=== PATIENT | female | born 1990 ===

== ENCOUNTER 2016-10-24 17:17 | Observation (INO) | payer SELFPAY ==
[2016-10-24 17:37] VITALS: RESP 18
[2016-10-24] MEDS ORDERED: Iohexol 240 (50 ml) PO STA (18:00)
[2016-10-24] MEDS ORDERED: Sodium Chloride 0.9% 1,000 ML IV STA (18:01)
--- NOTE | 2016-10-24 18:13 | ED PDOC ---
HPI:Nausea, Vomiting, Diarrhea Time Seen by Provider: 10/24/16 17:54 Chief Complaint (Nursing): GI Problem Chief Complaint (Provider): Nausea/Vomiting History Per: Patient History/Exam Limitations: no limitations Onset/Duration Of Symptoms: Days (1 day) Current Symptoms Are (Timing): Still Present Have you had recent travel within the past 21 days to any of the following countries: [place], [place], [place] or [place]?: No Severity: Moderate Associated Symptoms: Fever (subjective), Nausea, Vomiting, Other (abdominal pain ). denies: Constipation, Urinary Symptoms Additional Complaint(s): Farnaz Samuel is a 26 year old female, with no pertinent past medical history, who presents to the emergency department for the evaluation of nausea and vomiting, that the patient has been experiencing for 1 day. Associated subjective fever and abdominal pain are currently present. Denies genitourinary symptoms or constipation. PMD: none specified Abnormal Vaginal Bleeding: No Past Medical History Reviewed: Historical Data, Nursing Documentation, Vital Signs Vital Signs: Last Vital Signs Temp 97 F L 10/24/16 17:30 Pulse 74 10/24/16 17:30 Resp 18 10/24/16 17:30 BP 141/84 10/24/16 17:30 Pulse Ox 100 10/24/16 17:30 - Medical History PMH: No Chronic Diseases - Surgical History Surgical History: Appendectomy, Hernia Repair (inguinal) - Family History Family History: States: No Known Family Hx - Social History Current smoker - smoking cessation education provided: No Ex-Smoker (has not smoked in the last 12 months): No Alcohol: Occasional - Home Medications Home Medications: Ambulatory Orders Medication Instructions Recorded Amoxicillin [Amoxicillin] 875 mg PO DAILY 10/25/16 - Allergies Allergies/Adverse Reactions: Allergies Allergy/AdvReac Type Severity Reaction Status Date / Time No Known Allergies Allergy Verified 01/25/16 20:06 Review of Systems ROS Statement: Except As Marked, All Systems Reviewed And Found Negative Constitutional: Positive for: Fever (subjective) Gastrointestinal: Positive for: Nausea, Vomiting, Abdominal Pain. Negative for : Constipation Genitourinary Female: Negative for: Dysuria, Frequency, Hematuria, Vaginal Bleeding, Other (urinary retention) Physical Exam - Reviewed Nursing Documentation Reviewed: Yes Vital Signs Reviewed: Yes - Physical Exam Appears: Positive for: Non-toxic, In Acute Distress (moderate gastrointestinal distress) Head Exam: Positive for: ATRAUMATIC, NORMOCEPHALIC Skin: Positive for: Normal Color, Warm, DRY Cardiovascular/Chest: Positive for: Regular Rate, Rhythm. Negative for: Murmur Respiratory: Positive for: Normal Breath Sounds. Negative for: Respiratory Distress Gastrointestinal/Abdominal: Positive for: Normal Exam, Soft, Tenderness ( generalized, LUQ). Negative for: Guarding, Rebound Back: Positive for: Normal Inspection. Negative for: L CVA Tenderness, R CVA Tenderness Neurologic/Psych: Positive for: Alert, Oriented. Negative for: Motor/Sensory Deficits - Laboratory Results Result Diagrams: 10/25/16 04:40 10/25/16 04:40 - ECG O2 Sat by Pulse Oximetry: 100 (RA) Pulse Ox Interpretation: Normal Medical Decision Making Medical Decision Makin:54 Initial Impression: Abdominal pain Differential Diagnoses include, but are not limited to, gastritis and a small bowel obstruction. Initial Plan: * CT Abd Pelvis w/ PO & IV Contrast * Complete Blood Count * Comprehensive Metabolic Panel * Prothrombin Time * Partial Thromboplastin Time * Lipase * Urine Dip * Urine * Urinalysis * Iohexol 50 ml PO * Morphine 2 mg IV * Zofran 4 mg IV * Sodium Chloride 0.9% 1,000 ml IV at 1,000 mls/hr * ED Observation * Reevaluation 18:00 Patient will be placed within ED Observation secondary to time-extensive ED workup. Pending CT Abd Pelvis, labs, and urine. See Observation note for further updates. Scribe Attestation: Documented by Nabeel Thornton, acting as a scribe for Taina Mcnally MD. Provider Scribe Attestation: All medical record entries made by the Scribe were at my direction and personally dictated by me. I have reviewed the chart and agree that the record accurately reflects my personal performance of the history, physical exam, medical decision making, and the department course for this patient. I have also personally directed, reviewed, and agree with the discharge instructions and disposition. ED OBSERVATION Discharge: Yes Date of observation admission: 10/24/16 Time of observation admission: 18:00 - Observation admission statement Patient is being placed in observation because:: Patient will be placed within ED Observation secondary to time-extensive ED workup. - Goals of Observation Goals of observation are:: Pending CT Abd Pelvis, labs, and urine. Disposition - Clinical Impression Clinical Impression: Intractable vomiting with nausea - Patient ED Disposition Is Patient to be Admitted: Transfer of Care - Disposition Disposition Time: 19:00 Condition: STABLE Patient Signed Over To: Lucius Ventura Handoff Comments: Pending CT.
[2016-10-24 18:48] LABS: BASO # 0.1 K/uL (0.0-0.2); BASO % 0.4 % (0.0-2.0); EOS % 0.1 % (0.0-4.0); HEMATOCRIT 39.4 % (34.0-47.0); LYMPH # 1.4 K/uL (1.0-4.3); LYMPH % 10.9 % (20.0-40.0); MEAN CELL VOLUME 87.8 fl (81.0-99.0); MEAN CORPUSCULAR HEMOGLOBIN 29.1 pg (27.0-31.0); MEAN CORPUSCULAR HGB CONC 33.2 g/dL (33.0-37.0); MEAN PLATELET VOLUME 7.3 fl (7.2-11.7); MONO # 0.6 K/uL (0.0-0.8); MONO % 4.4 % (0.0-10.0); NEUT # 10.8 K/uL (1.8-7.0); NEUT % 84.2 % (50.0-75.0); RED CELL DISTRIBUTION WIDTH 13.1 % (11.5-14.5); WHITE BLOOD COUNT 12.8 K/uL (4.8-10.8)
--- NOTE | 2016-10-24 19:21 | ED PDOC ---
- Laboratory Results Result Diagrams: 10/25/16 04:40 10/24/16 19:00 - ECG O2 Sat by Pulse Oximetry: 100 (RA) Pulse Ox Interpretation: Normal Medical Decision Making Medical Decision Makin:00 Patient transferred over to provider from Taina Mcnally MD. Pending CT Abd Pelvis and urine. Scribe Attestation: Documented by Nabeel Thornton, acting as a scribe for Lucius Ventura MD. Provider Scribe Attestation: All medical record entries made by the Scribe were at my direction and personally dictated by me. I have reviewed the chart and agree that the record accurately reflects my personal performance of the history, physical exam, medical decision making, and the department course for this patient. I have also personally directed, reviewed, and agree with the discharge instructions and disposition. Disposition - Clinical Impression Clinical Impression: Intractable vomiting with nausea - POA Present On Arrival: None - Disposition Disposition: Hospitalized as Observation Patient Disposition Time: 03:00 Condition: STABLE Progress Note - Review of Symptoms Events since last encounter: 3AM Pt's CT does not show acute pathology, however patient is still nauseated, has vomited several times despite multiple rounds of anti-emetics. Will admit patient to obs for intractable nausea and vomiting. Dr. Juan Antonio yao.
[2016-10-24 19:43] LABS: ALB/GLOB RATIO 1.5 (1.0-2.1); ALKALINE PHOSPHATASE 58 U/L (38-126); ALT/SGPT 25 U/L (9-52); AST/SGOT 24 U/L (14-36); BILIRUBIN,TOTAL 0.6 mg/dl (0.2-1.3); BLOOD UREA NITROGEN 14 mg/dl (7-17); CALCIUM 9.3 mg/dL (8.4-10.2); CARBON DIOXIDE 22 mmol/L (22-30); CHLORIDE 104 mmol/L (98-107); GFR AFRICAN-AMERICAN > 60; GLUCOSE,RANDOM 117 mg/dL (65-105); LIPASE 53 U/L (23-300); POTASSIUM 3.4 MMOL/L (3.6-5.0); SODIUM 139 mmol/l (132-148); TOTAL PROTEIN 7.9 G/DL (6.3-8.2)
[2016-10-24] MEDS ORDERED: Iohexol 240 (50 ml) ONE (19:58)
[2016-10-24 20:56] LABS: RBC URINE 4 /hpf (0-3); URINE BACTERIA RARE (<OCC); URINE BILIRUBIN NEGATIVE (NEGATIVE); URINE BLOOD NEGATIVE (NEGATIVE); URINE COLOR YELLOW (YELLOW); URINE GLUCOSE (UA) NEG (Normal); URINE KETONE 20 mg/dL (NEGATIVE); URINE LEUKOCYTE ESTERASE NEG Leu/uL (Negative); URINE PROTEIN 100 mg/dL (NEGATIVE); URINE UROBILINOGEN 0.2-1.0 mg/dL (0.2-1.0); WBC URINE 3 /hpf (0-5)
[2016-10-24] MEDS ORDERED: Sterile Water 10 ML IV ONE (22:00)
[2016-10-24] MEDS ORDERED: Sodium Chloride 0.9% 50 ML IV ONE (22:46)
[2016-10-24] MEDS ORDERED: Iohexol 300 100 ML IJ ONE (22:46)
[2016-10-25] MEDS ORDERED: Sodium Chloride 0.9% 1,000 ML IV STA ×2 (00:29→02:40)
[2016-10-25] MEDS ORDERED: Sodium Chloride 0.9% 1,000 ML IV SCH (03:45)
--- NOTE | 2016-10-25 03:48 | CP.PCM.HP ---
History of Present Illness - History of Present Illness History of Present Illness: CC: n/v HPI: 26 y/o female with no MHx who comes in with ~1 day of n/v. States that she had several drinks of EtOH last night, came home and hydrated, but then once she was going to work, felt significant nausea and then had to throw up. Since then, she kept on having n/v. She also had some occasional diarrhea. She has not been able to keep any food or fluids down. No f/c. Patient has had symptoms like this a few times in the past, generally associated with EtOH, but does not always have it with drinking. She does not note drinking very many drinks however, either. No sick contacts with similar symptoms. MHx: None SHx: Appendectomy Allergies: NKDA Medications: None Family Hx: No relevant findings Social Hx: Lives with roommate, drinks EtOH socially, occasional tobacco, occasional MJ Present on Admission - Present on Admission Any Indicators Present on Admission: No Past Patient History - Infectious Disease Hx of Infectious Diseases: None - Past Social History Smoking Status: Never Smoked - PSYCHIATRIC Hx Substance Use: No - SURGICAL HISTORY Hx Appendectomy: Yes Hx Herniorrhaphy: Yes - ANESTHESIA Hx Anesthesia: Yes Hx Anesthesia Reactions: No Meds Allergies/Adverse Reactions: Allergies Allergy/AdvReac Type Severity Reaction Status Date / Time No Known Allergies Allergy Verified 01/25/16 20:06 Physical Exam - Constitutional Appears: No Acute Distress - Head Exam Head Exam: ATRAUMATIC, NORMOCEPHALIC - Eye Exam Eye Exam: EOMI, PERRL - ENT Exam ENT Exam: Mucous Membranes Dry - Neck Exam Neck exam: Positive for: Full Rom - Respiratory Exam Respiratory Exam: Clear to Auscultation Bilateral, NORMAL BREATHING PATTERN - Cardiovascular Exam Cardiovascular Exam: REGULAR RHYTHM, +S1, +S2 - GI/Abdominal Exam GI & Abdominal Exam: Normal Bowel Sounds, Soft - Extremities Exam Extremities exam: Positive for: normal inspection - Neurological Exam Neurological exam: Alert, CN II-XII Intact, Oriented x3 - Psychiatric Exam Psychiatric exam: Normal Affect, Normal Mood - Skin Skin Exam: Dry, Warm Results - Vital Signs Recent Vital Signs: Last Vital Signs Temp 97 F L 10/24/16 17:30 Pulse 74 10/24/16 17:30 Resp 18 10/24/16 17:30 BP 141/84 10/24/16 17:30 Pulse Ox 100 10/24/16 19:21 - Labs Result Diagrams: 10/24/16 18:40 10/24/16 19:00 Labs: Laboratory Results - last 24 hr 10/24/16 10/24/16 10/24/16 18:40 18:40 19:00 WBC 12.8 H RBC 4.48 Hgb 13.1 Hct 39.4 MCV 87.8 MCH 29.1 MCHC 33.2 RDW 13.1 Plt Count 310 MPV 7.3 Neut % (Auto) 84.2 H Lymph % (Auto) 10.9 L [place] % (Auto) 4.4 Eos % (Auto) 0.1 Baso % (Auto) 0.4 Neut # 10.8 H Lymph # 1.4 [place] # 0.6 Eos # 0.0 Baso # 0.1 PT 12.1 INR 1.1 APTT 24.0 L Sodium 139 Potassium 3.4 L Chloride 104 Carbon Dioxide 22 Anion Gap 16 BUN 14 Creatinine 0.6 L Est GFR ( Amer) > 60 Est GFR (Non-Af Amer) > 60 Random Glucose 117 H Calcium 9.3 Total Bilirubin 0.6 AST 24 ALT 25 Alkaline Phosphatase 58 Total Protein 7.9 Albumin 4.8 Globulin 3.1 Albumin/Globulin Ratio 1.5 Lipase 53 Urine Color Urine Clarity Urine pH Ur Specific [place] Urine Protein Urine Glucose (UA) Urine Ketones Urine Blood Urine Nitrate Urine Bilirubin Urine Urobilinogen Ur Leukocyte Esterase Urine RBC (Auto) Urine Microscopic WBC Ur Squamous Epith Cells Urine Bacteria Urine Yeast (Budding) 10/24/16 19:49 WBC RBC Hgb Hct MCV MCH MCHC RDW Plt Count MPV Neut % (Auto) Lymph % (Auto) [place] % (Auto) Eos % (Auto) Baso % (Auto) Neut # Lymph # [place] # Eos # Baso # PT INR APTT Sodium Potassium Chloride Carbon Dioxide Anion Gap BUN Creatinine Est GFR ( Amer) Est GFR (Non-Af Amer) Random Glucose Calcium Total Bilirubin AST ALT Alkaline Phosphatase Total Protein Albumin Globulin Albumin/Globulin Ratio Lipase Urine Color Yellow Urine Clarity Cloudy Urine pH 9.0 Ur Specific [place] 1.025 Urine Protein 100 Urine Glucose (UA) Neg Urine Ketones 20 Urine Blood Negative Urine Nitrate Negative Urine Bilirubin Negative Urine Urobilinogen 0.2-1.0 Ur Leukocyte Esterase Neg Urine RBC (Auto) 4 H Urine Microscopic WBC 3 Ur Squamous Epith Cells 6 H Urine Bacteria Rare Urine Yeast (Budding) Few H - Imaging and Cardiology CT scan - abdomen Status: Report reviewed by me (no acute findings) Assessment & Plan (1) Nausea & vomiting Assessment and Plan: 26 y/o female with persistent n/v, unable to keep down any PO fluids or food. -Cont NPO, IVF for now -Continue Zofran, reglan IV PRN -Pain medications as needed -SCDs for DVT PPx Status: Acute (2) Gastroenteritis Status: Acute (3) Abdominal pain Status: Acute (4) DVT prophylaxis Status: Acute
[2016-10-25] MEDS ORDERED: Potassium Chl 20 mEq in NS 1,000 ML IV SCH (04:21)
[2016-10-25 04:47] LABS: BASO % 0.3 % (0.0-2.0); HEMATOCRIT 36.9 % (34.0-47.0); LYMPH # 0.6 K/uL (1.0-4.3); LYMPH % 4.5 % (20.0-40.0); MEAN CELL VOLUME 88.5 fl (81.0-99.0); MEAN CORPUSCULAR HEMOGLOBIN 29.3 pg (27.0-31.0); MEAN CORPUSCULAR HGB CONC 33.1 g/dL (33.0-37.0); MEAN PLATELET VOLUME 7.3 fl (7.2-11.7); MONO # 0.3 K/uL (0.0-0.8); NEUT % 93.2 % (50.0-75.0); PLATELET COUNT 282 K/uL (130-400); RED CELL DISTRIBUTION WIDTH 13.1 % (11.5-14.5); WHITE BLOOD COUNT 12.9 K/uL (4.8-10.8)
[2016-10-25 05:01] LABS: BLOOD UREA NITROGEN 13 mg/dl (7-17); CALCIUM 8.5 mg/dL (8.4-10.2); CARBON DIOXIDE 22 mmol/L (22-30); CHLORIDE 107 mmol/L (98-107); GFR AFRICAN-AMERICAN > 60; GLUCOSE,RANDOM 106 mg/dL (65-105); SODIUM 139 mmol/l (132-148)
[2016-10-25 06:05] LABS: TOTAL CELLS COUNTED 100
[2016-10-25 06:06] LABS: NEUTROPHIL 94 % (42-75)
[2016-10-25] MEDS ORDERED: Pneumococcal 23-Valent Vaccine IM ONE (07:59)
[2016-10-25 08:44] VITALS: BP 110/69; PULSE 70; TEMP 98.5
--- NOTE | 2016-10-25 09:43 | RAD ---
HISTORY: abd pain COMPARISON: No prior. FINDINGS: LUNGS: No active pulmonary disease. PLEURA: No significant pleural effusion identified, no pneumothorax apparent. CARDIOVASCULAR: Normal. OSSEOUS STRUCTURES: No significant abnormalities. VISUALIZED UPPER ABDOMEN: Normal. OTHER FINDINGS: None. IMPRESSION: No active disease.
--- NOTE | 2016-10-25 09:59 | CT ---
PROCEDURE: CT Abdomen and Pelvis with contrast HISTORY: Gen abd pain, >LUQ COMPARISON: 01/26/2016. TECHNIQUE: Contrast dose: 95 cc Radiation dose: Total exam DLP = 783.38 mGy-cm. This CT exam was performed using one or more of the following dose reduction techniques: Automated exposure control, adjustment of the mA and/or kV according to patient size, and/or use of iterative reconstruction technique. FINDINGS: LOWER THORAX: Unremarkable. LIVER: Unremarkable. No gross lesion or ductal dilatation. GALLBLADDER AND BILE DUCTS: Unremarkable. PANCREAS: Unremarkable. No gross lesion or ductal dilatation. SPLEEN: Unremarkable. ADRENALS: Unremarkable. No mass. KIDNEYS AND URETERS: Unremarkable. No hydronephrosis. No solid mass. VASCULATURE: Unremarkable. No aortic aneurysm. BOWEL: Unremarkable. No obstruction. No gross mural thickening. APPENDIX: Appendix not seen. PERITONEUM: Small amount of fluid in the pelvis likely physiologic. No evidence of free air. LYMPH NODES: No bulky lymphadenopathy. BLADDER: Unremarkable. REPRODUCTIVE: Please note that evaluation of gynecologic organs is not optimal on CT imaging. Possible corpus luteum cyst on the right. BONES: No acute fracture. OTHER FINDINGS: Few dilated veins in the pelvis the left. IMPRESSION: No acute findings. Few dilated veins in the left hemipelvis. Please note that this report is in general agreement with the preliminary report provided by [facility].
--- NOTE | 2016-10-25 10:57 | CP.PCM.DIS ---
Provider - Provider Date of Admission: 10/24/16 18:00 Attending physician: Evelyn Romano MD Primary care physician: Patient states that she does not have one Consults: None Time Spent in preparation of Discharge (in minutes): 40 Hospital Course - Lab Results Lab Results: Most Recent Lab Values WBC 12.9 K/uL (4.8-10.8) H 10/25/16 04:40 RBC 4.17 Mil/uL (3.80-5.20) 10/25/16 04:40 Hgb 12.2 g/dL (12.0-16.0) 10/25/16 04:40 Hct 36.9 % (34.0-47.0) 10/25/16 04:40 MCV 88.5 fl (81.0-99.0) 10/25/16 04:40 MCH 29.3 pg (27.0-31.0) 10/25/16 04:40 MCHC 33.1 g/dL (33.0-37.0) 10/25/16 04:40 RDW 13.1 % (11.5-14.5) 10/25/16 04:40 Plt Count 282 K/uL (130-400) 10/25/16 04:40 MPV 7.3 fl (7.2-11.7) 10/25/16 04:40 Neut % (Auto) 93.2 % (50.0-75.0) H 10/25/16 04:40 Lymph % (Auto) 4.5 % (20.0-40.0) L 10/25/16 04:40 [place] % (Auto) 2.0 % (0.0-10.0) 10/25/16 04:40 Eos % (Auto) 0.0 % (0.0-4.0) 10/25/16 04:40 Baso % (Auto) 0.3 % (0.0-2.0) 10/25/16 04:40 Neut # 12.0 K/uL (1.8-7.0) H 10/25/16 04:40 Lymph # 0.6 K/uL (1.0-4.3) L 10/25/16 04:40 [place] # 0.3 K/uL (0.0-0.8) 10/25/16 04:40 Eos # 0.0 K/uL (0.0-0.7) 10/25/16 04:40 Baso # 0.0 K/uL (0.0-0.2) 10/25/16 04:40 Neutrophils % (Manual) 94 % (42-75) H 10/25/16 04:40 Band Neutrophils % 1 % (0-2) 10/25/16 04:40 Lymphocytes % (Manual) 4 % (20-50) L 10/25/16 04:40 Monocytes % (Manual) 1 % (0-10) 10/25/16 04:40 Platelet Estimate Normal (NORMAL) 10/25/16 04:40 RBC Morphology Normal (NORMAL) 10/25/16 04:40 PT 12.1 Seconds (9.8-13.1) 10/24/16 18:40 INR 1.1 (0.9-1.2) 10/24/16 18:40 APTT 24.0 Seconds (25.6-37.1) L 10/24/16 18:40 Sodium 139 mmol/l (132-148) 10/25/16 04:40 Potassium 4.0 MMOL/L (3.6-5.0) 10/25/16 04:40 Chloride 107 mmol/L (98-107) 10/25/16 04:40 Carbon Dioxide 22 mmol/L (22-30) 10/25/16 04:40 Anion Gap 14 (10-20) 10/25/16 04:40 BUN 13 mg/dl (7-17) 10/25/16 04:40 Creatinine 0.6 mg/dL (0.7-1.2) L 10/25/16 04:40 Est GFR ( Amer) > 60 10/25/16 04:40 Est GFR (Non-Af Amer) > 60 10/25/16 04:40 Random Glucose 106 mg/dL (65-105) H 10/25/16 04:40 Calcium 8.5 mg/dL (8.4-10.2) 10/25/16 04:40 Total Bilirubin 0.6 mg/dl (0.2-1.3) 10/24/16 19:00 AST 24 U/L (14-36) 10/24/16 19:00 ALT 25 U/L (9-52) 10/24/16 19:00 Alkaline Phosphatase 58 U/L (38-126) 10/24/16 19:00 Total Protein 7.9 G/DL (6.3-8.2) 10/24/16 19:00 Albumin 4.8 g/dL (3.5-5.0) 10/24/16 19:00 Globulin 3.1 gm/dL (2.2-3.9) 10/24/16 19:00 Albumin/Globulin Ratio 1.5 (1.0-2.1) 10/24/16 19:00 Lipase 53 U/L (23-300) 10/24/16 19:00 Urine Color Yellow (YELLOW) 10/24/16 19:49 Urine Clarity Cloudy (Clear) 10/24/16 19:49 Urine pH 9.0 (5.0-8.0) 10/24/16 19:49 Ur Specific [place] 1.025 (1.003-1.030) 10/24/16 19:49 Urine Protein 100 mg/dL (NEGATIVE) 10/24/16 19:49 Urine Glucose (UA) Neg mg/dL (Normal) 10/24/16 19:49 Urine Ketones 20 mg/dL (NEGATIVE) 10/24/16 19:49 Urine Blood Negative (NEGATIVE) 10/24/16 19:49 Urine Nitrate Negative (NEGATIVE) 10/24/16 19:49 Urine Bilirubin Negative (NEGATIVE) 10/24/16 19:49 Urine Urobilinogen 0.2-1.0 mg/dL (0.2-1.0) 10/24/16 19:49 Ur Leukocyte Esterase Neg [place]/uL (Negative) 10/24/16 19:49 Urine RBC (Auto) 4 /hpf (0-3) H 10/24/16 19:49 Urine Microscopic WBC 3 /hpf (0-5) 10/24/16 19:49 Ur Squamous Epith Cells 6 /hpf (0-5) H 10/24/16 19:49 Urine Bacteria Rare (<OCC) 10/24/16 19:49 Urine Yeast (Budding) Few /hpf (NEGATIVE) H 10/24/16 19:49 - Hospital Course Hospital Course: HPI: 26 y/o female with no MHx who came in with ~1 day of n/v. States that she had several drinks of EtOH last night, came home and hydrated, but then once she was going to work, felt significant nausea and then had to throw up. Since then, she kept on having n/v. She also had some occasional diarrhea. She has not been able to keep any food or fluids down. Patient has had symptoms like this a few times in the past, generally associated with EtOH, but does not always have it with drinking. She does not note drinking very many drinks however, either. No sick contacts with similar symptoms. Currently upon FULL FOS there is no n/v, no abdominal pain and patient states that her symptoms "have gone away". NO chest pain, NO palpitations, NO SOB/cough /wheezing, NO d/c, NO burning/pain with urination, NO headache, NO new changes in vision/eye pain, NO new changes in hearing/ear pain, NO lightheadedness/ dizziness, NO edema Exam: HEENT: EOMI, PERRLA, NO cervical lymphadenopathy, NO thryomegaly, NO pharyngeal erythema/exudate Cardio: NS1 and NS2, NO M/R/G Resp: CTA B/L, NO R/R/W GI: BSx4, Soft, NT, ND, NO HSM, NO guarding/rebound tenderness Ext: Pulses are strong and equal, Capillary Refill is 2 seconds, NO edema Neuro: CN II through XII are grossly intact Assessment and Plan: 1). N/V with Abdominal Pain CT Abdomen/Pelvis: NO acute findings Chest X Ray: NO active disease Urine is negative Slightly elevated WBC but there is NO fever, Vitals Stable, UA is negative of UTI Symptoms have resolved 2). Hypokalemia Given NS with 20 mEQ KCl at 100 mL/hr Resolved The following instructions were explained to patient and copy of this discharge summary was provided: 1). Schedule appointment with the [facility] by calling to take place in 7 days. It is located at [address] [place] [address] in [place]. Through this clinic please be evaluated by an [facility] physician for Pap Smear and [facility] Exam. 2). Please follow the dietary recommendations provided to you. 3). Please do not drink alcohol 4). Please take care. Georges Loznao D.O. Discharge Exam - Head Exam Head Exam: ATRAUMATIC, NORMOCEPHALIC Discharge Plan - Follow Up Plan Condition: STABLE Disposition: HOME/ ROUTINE Instructions: Acute Abdominal Pain (DC), Acute Abdominal Pain (GEN)
[2016-10-27 16:32] VITALS: O2SAT 100
== END 2016-10-25 13:41 | disposition home or self-care (01) ==
LOC: H.ER 17:17 → H.EROBSV 18:00 → H.ERHOLD 10-25 03:22 → H.MEDSURG1 10-25 05:41
PROVIDERS: ADMIT Internal Medicine; ATTEND Internal Medicine
DX: K52.9 Noninfective gastroenteritis and colitis, unspecified (principal); E87.6 Hypokalemia; Z23 Encounter for immunization
CPT/HCPCS: 36415; 71010; 74177; 80048; 80053; 81003; 81025; 83690; 85025; 85610; 85730; 90732; 96360; 96361; 96374; 99284; C9113; G0009; G0378; J2060; J2270; J2405; J2765; J7040; Q9966; Q9967

== ENCOUNTER 2017-02-08 10:56 | Observation (INO) | payer OTHER ==
[2017-02-08 11:03] VITALS: BMI 25.8
[2017-02-08 11:05] VITALS: RESP 18
[2017-02-08] MEDS ORDERED: Sodium Chloride 0.9% 1,000 ML IV STA ×3 (11:43→20:45)
--- NOTE | 2017-02-08 11:47 | ED PDOC ---
HPI: Abdomen Time Seen by Provider: 02/08/17 11:07 Chief Complaint (Nursing): Abdominal Pain Chief Complaint (Provider): LLQ pain, vomiting History Per: Patient History/Exam Limitations: no limitations Onset/Duration Of Symptoms: Hrs (12) Outside of [place] travel?: No Current Symptoms Are (Timing): Still Present Severity: Severe Pain Scale Rating Of: 10 Location Of Pain/Discomfort: LLQ Quality Of Discomfort: Sharp Associated Symptoms: Nausea, Vomiting, Diarrhea (Yesterday befor the pain began) , Loss Of Appetite. denies: Fever, Chills, Back Pain, Chest Pain, Urinary Symptoms Exacerbating Factors: None Additional Complaint(s): Pt states she began having LLQ pain and vomiting last night. Pt states the pain is sharp LLQ and dull diffuse from vomiting. Pt denies fever/chills. Pt with history of LLQ pain. PT seen in ER 3 months ago for intractable vomiting. Pt states she is not sure if she had pain at that time. CT completed and normal at that time. Past Medical History Reviewed: Historical Data, Nursing Documentation, Vital Signs Vital Signs: Last Vital Signs Temp 98.0 F 02/08/17 17:00 Pulse 69 02/08/17 17:00 Resp 18 02/08/17 17:00 BP 106/58 L 02/08/17 17:00 Pulse Ox 100 02/08/17 17:00 - Medical History PMH: No Chronic Diseases Denies: Chronic Kidney Disease - Surgical History Surgical History: Appendectomy, Hernia Repair (inguinal) - Family History Family History: States: Unknown Family Hx - Living Arrangements Living Arrangements: With Family - Social History Current smoker - smoking cessation education provided: No Alcohol: None Drugs: Denies - Home Medications Home Medications: Ambulatory Orders Medication Instructions Recorded Amoxicillin [Amoxicillin] 875 mg PO DAILY 10/25/16 - Allergies Allergies/Adverse Reactions: Allergies Allergy/AdvReac Type Severity Reaction Status Date / Time No Known Allergies Allergy Verified 01/25/16 20:06 Review of Systems ROS Statement: Except As Marked, All Systems Reviewed And Found Negative Constitutional: Negative for: Fever, Chills Gastrointestinal: Positive for: Nausea, Vomiting, Abdominal Pain - Laboratory Results Result Diagrams: 02/08/17 12:05 02/08/17 12:05 - ECG O2 Sat by Pulse Oximetry: 100 Medical Decision Making Medical Decision Making: Pt rpeorts smoking marijuana daily. Discussed cannabinoid hyperemesis syndrome. Dr. Middleton aware. EKG ordered to evaluation QT length. monitoring engineer and IV haldol 2.5mg. Pt will be monitored in ER. Endorsed to Dr. Middleton. Disposition - Clinical Impression Clinical Impression: Cannabinoid hyperemesis syndrome - Patient ED Disposition Is Patient to be Admitted: Transfer of Care - Disposition Disposition: Transfer of Care Disposition Time: 20:47 Condition: STABLE
[2017-02-08 12:17] LABS: BASO % 0.1 % (0.0-2.0); EOS % 0.3 % (0.0-4.0); HEMATOCRIT 40.2 % (34.0-47.0); LYMPH # 0.8 K/uL (1.0-4.3); LYMPH % 5.3 % (20.0-40.0); MEAN CELL VOLUME 87.4 fl (81.0-99.0); MEAN CORPUSCULAR HEMOGLOBIN 29.4 pg (27.0-31.0); MEAN CORPUSCULAR HGB CONC 33.6 g/dL (33.0-37.0); MEAN PLATELET VOLUME 7.5 fl (7.2-11.7); MONO # 0.2 K/uL (0.0-0.8); MONO % 1.6 % (0.0-10.0); NEUT # 13.4 K/uL (1.8-7.0); NEUT % 92.7 % (50.0-75.0); PLATELET COUNT 373 K/uL (130-400); WHITE BLOOD COUNT 14.5 K/uL (4.8-10.8)
[2017-02-08 12:24] LABS: ALB/GLOB RATIO 1.5 (1.0-2.1); ALKALINE PHOSPHATASE 60 U/L (38-126); ALT/SGPT 25 U/L (9-52); AST/SGOT 24 U/L (14-36); BILIRUBIN,TOTAL 0.8 mg/dl (0.2-1.3); BLOOD UREA NITROGEN 16 mg/dl (7-17); CALCIUM 9.8 mg/dL (8.4-10.2); CARBON DIOXIDE 18 mmol/L (22-30); CHLORIDE 106 mmol/L (98-107); GFR AFRICAN-AMERICAN > 60; GLUCOSE,RANDOM 135 mg/dL (65-105); LIPASE 28 U/L (23-300); POTASSIUM 4.1 MMOL/L (3.6-5.0); SODIUM 140 mmol/l (132-148); TOTAL PROTEIN 8.5 G/DL (6.3-8.2)
[2017-02-08 12:55] LABS: NEUTROPHIL 93 % (42-75); TOTAL CELLS COUNTED 100
--- NOTE | 2017-02-08 15:57 | US ---
PROCEDURE: HISTORY: LLQ pain, history of cyst, vomiting COMPARISON: TECHNIQUE: FINDINGS: The uterus measures 6.4 x 2.8 x 4.5 centimeters. The endometrium measures 6 millimeters. The right ovary measures 3.2 x 2.3 x 2.4 centimeters. The left ovary measures 2.2 x 1.7 x 2.6 centimeters. IMPRESSION: Normal pelvic ultrasound.
[2017-02-08] MEDS ORDERED: Iohexol 240 (50 ml) PO STA (16:22)
[2017-02-08] MEDS ORDERED: Iohexol 240 (50 ml) ONE (16:25)
[2017-02-08] MEDS ORDERED: Sodium Chloride 0.9% 50 ML IV ONE (17:25)
[2017-02-08] MEDS ORDERED: Iohexol 300 100 ML IJ ONE (17:25)
--- NOTE | 2017-02-08 20:24 | CT ---
EXAM: CT Abdomen and Pelvis With Intravenous Contrast EXAM DATE/TIME: 02/08/2017 4:24 PM CLINICAL HISTORY: 26 years old, female; Pain; Abdominal pain; Additional info: Llq pain, vomiting. HX of ap and hernia SX TECHNIQUE: Axial computed tomography images of the abdomen and pelvis with intravenous contrast. All CT scans at this facility use one or more dose reduction techniques, viz.: automated exposure control; ma/kV adjustment per patient size (including targeted exams where dose is matched to indication; i.e. head); or iterative reconstruction technique. Coronal and sagittal reformatted images were created and reviewed. CONTRAST: 90 mL of [id number] administered intravenously. COMPARISON: No relevant prior studies available. FINDINGS: LIMITATIONS: Mild streak/motion artifact. LOWER THORAX: No infiltrate seen in the lung bases. ABDOMEN: LIVER: No acute abnormality of the liver identified. GALLBLADDER AND BILE DUCTS: No CT evidence of acute cholecystitis. No evidence of significant biliary ductal dilatation. PANCREAS: No CT evidence of acute pancreatitis. SPLEEN: No acute abnormality of the spleen identified. ADRENALS: No acute abnormality of the adrenal glands identified. KIDNEYS AND URETERS: Left kidney demonstrates a prominent extrarenal pelvis, a normal variant. No evidence of significant hydroureteronephrosis. No acute abnormality of the left kidney identified. STOMACH AND BOWEL: No acute abnormality of the stomach, small bowel or colon identified. No evidence of bowel obstruction. APPENDIX: Normal appendix is not seen, and there are postsurgical changes near the cecum, which are likely from prior appendectomy. Recommend clinical correlation. PELVIS: BLADDER: Mild thickening of the bladder wall. REPRODUCTIVE:No acute abnormality of the reproductive organs is seen. No acute abnormality of the uterus identified. No evidence of large adnexal masses. ABDOMEN and PELVIS: INTRAPERITONEAL SPACE: No evidence of free intraperitoneal air or fluid. BONES/JOINTS: No acute fractures or other acute bony abnormality noted. SOFT TISSUES: Small umbilical hernia, containing only fat. VASCULATURE: No evidence of abdominal aortic aneurysm. No evidence of periaortic hemorrhage. LYMPH NODES: No evidence of diffuse lymphadenopathy. IMPRESSION: - Mild bladder wall thickening. This is a nonspecific finding, but can be seen with cystitis. Recommend clinical correlation. - Otherwise, no evidence of significant acute process. - See above for remaining findings.
[2017-02-08 21:29] VITALS: TEMP 98
[2017-02-08 23:07] VITALS: BP 112/68; PULSE 72; O2SAT 99
--- NOTE | 2017-02-08 23:23 | ED PDOC ---
- Laboratory Results Result Diagrams: 02/08/17 12:05 02/08/17 12:05 - ECG O2 Sat by Pulse Oximetry: 99 Medical Decision Making Medical Decision Making: re-eval 1115pm improved, tolerating PO, no vomiting. EKG [id number] bpm QTc 468 as read by MD (s/p haldol 2.5mg) Rx reglan but do not start until tomorrow. Avoid THC. Followup GI. Return ER for any worse or new symptoms. All questions answered, left ED in good spirits. Disposition - Clinical Impression Clinical Impression: Cannabinoid hyperemesis syndrome, Intractable vomiting with nausea - POA Present On Arrival: None - Disposition Disposition: Routine/Home Disposition Time: 23:23 Condition: STABLE
--- NOTE | 2017-02-09 07:44 | CARD ---
APPROVED REPORT EKG Measurement Heart [id number] <Conclusion> Normal sinus rhythm with sinus arrhythmia Normal ECG
== END 2017-02-08 23:34 | disposition home or self-care (01) ==
LOC: H.ER 10:56 → H.EROBSV 14:04
PROVIDERS: ADMIT Emergency Medicine; ATTEND Emergency Medicine
DX: F12.988 Cannabis use, unspecified with other cannabis-induced disorder (principal); R11.2 Nausea with vomiting, unspecified
CPT/HCPCS: 74177; 76830; 76856; 80053; 80324; 80345; 80346; 80349; 80353; 80358; 80361; 81025; 83690; 83992; 85025; 93005; 96372; 96374; 96375; 96376; 99285; G0378; J1630; J1885; J2270; J2405; J2765; J7040; Q9967

== ENCOUNTER 2017-08-20 12:47 | Observation (INO) | payer MEDICAID, OTHER ==
[2017-08-20 12:47] VITALS: BMI 25.8
--- NOTE | 2017-08-20 13:06 | ED PDOC ---
HPI: Abdomen Time Seen by Provider: 08/20/17 12:58 Chief Complaint (Nursing): Abdominal Pain History Per: Patient Onset/Duration Of Symptoms: Days (1) Current Symptoms Are (Timing): Still Present Severity: Moderate Pain Scale Rating Of: 4 Location Of Pain/Discomfort: RUQ, Epigastric Quality Of Discomfort: Sharp Associated Symptoms: Nausea, Vomiting, Diarrhea. denies: Fever Exacerbating Factors: None Alleviating Factors: None Additional Complaint(s): Epigastric and RUQ abd pain assoc with nausea vomiting and diarrhea since last night. Admits to ETOH consumption last night. Denies fever or hematochezia. Past Medical History Vital Signs: Last Vital Signs Temp 97.0 F L 08/20/17 12:51 Pulse 81 08/20/17 12:51 Resp 16 08/20/17 12:51 BP 134/92 H 08/20/17 12:51 Pulse Ox 99 08/20/17 13:06 - Medical History PMH: Denies: Chronic Kidney Disease - Surgical History Surgical History: Appendectomy, Hernia Repair (inguinal) - Family History Family History: States: Unknown Family Hx - Home Medications Home Medications: Ambulatory Orders Medication Instructions Recorded Amoxicillin [Amoxicillin] 875 mg PO DAILY 10/25/16 Metoclopramide [Reglan] 10 mg PO TID PRN #12 tab 02/08/17 - Allergies Allergies/Adverse Reactions: Allergies Allergy/AdvReac Type Severity Reaction Status Date / Time No Known Allergies Allergy Verified 08/20/17 12:51 Review of Systems ROS Statement: Except As Marked, All Systems Reviewed And Found Negative Gastrointestinal: Positive for: Nausea, Vomiting, Abdominal Pain, Diarrhea Physical Exam - Reviewed Nursing Documentation Reviewed: Yes Vital Signs Reviewed: Yes - Physical Exam Appears: Positive for: Well, Non-toxic, No Acute Distress Head Exam: Positive for: ATRAUMATIC, NORMAL INSPECTION, NORMOCEPHALIC Skin: Positive for: Normal Color, Warm, DRY Eye Exam: Positive for: EOMI, Normal appearance, PERRL ENT: Positive for: Normal ENT Inspection Neck: Positive for: Normal, Painless ROM Cardiovascular/Chest: Positive for: Regular Rate, Rhythm Respiratory: Positive for: CNT, Normal Breath Sounds Gastrointestinal/Abdominal: Positive for: Bowel Sounds, Soft, Tenderness ( Epigastric and RUQ) Back: Positive for: Normal Inspection. Negative for: R CVA Tenderness Extremity: Positive for: Normal ROM Neurologic/Psych: Positive for: Alert, Oriented - Laboratory Results Result Diagrams: 08/20/17 13:17 08/20/17 13:17 - ECG O2 Sat by Pulse Oximetry: 99 Disposition - Clinical Impression Clinical Impression: Abdominal pain - Patient ED Disposition Is Patient to be Admitted: Transfer of Care - Disposition Disposition Time: 15:02 Condition: FAIR Forms: [employer] (Romanian) Patient Signed Over To: Rc Hudson
[2017-08-20] MEDS: Sodium Chloride 0.9% 1,000 ML IV STA ×2 (13:25→20:24)
[2017-08-20 13:28] LABS: BASO # 0.1 K/uL (0.0-0.2); BASO % 0.4 % (0.0-2.0); EOS % 0.3 % (0.0-4.0); HEMOGLOBIN 13.8 g/dL (12.0-16.0); LYMPH # 1.9 K/uL (1.0-4.3); LYMPH % 13.1 % (20.0-40.0); MEAN CELL VOLUME 88.1 fl (81.0-99.0); MEAN CORPUSCULAR HEMOGLOBIN 30.6 pg (27.0-31.0); MEAN CORPUSCULAR HGB CONC 34.7 g/dL (33.0-37.0); MEAN PLATELET VOLUME 7.7 fl (7.2-11.7); MONO # 0.6 K/uL (0.0-0.8); NEUT # 12.2 K/uL (1.8-7.0); NEUT % 82.2 % (50.0-75.0); NRBC % 0.1 % (0.0-0.0); RBC 4.5 Mil/uL (3.80-5.20); RED CELL DISTRIBUTION WIDTH 12.8 % (11.5-14.5); WHITE BLOOD COUNT 14.9 K/uL (4.8-10.8)
[2017-08-20] MEDS ORDERED: Morphine 4 MG/ML VIAL IVP ONE (13:36)
[2017-08-20] MEDS ORDERED: Morphine 4 MG/ML VIAL ONE ×3 (13:38→17:26)
[2017-08-20 13:41] LABS: ALB/GLOB RATIO 1.2 (1.0-2.1); ALBUMIN 4.5 g/dL (3.5-5.0); CALCIUM 9.6 mg/dL (8.4-10.2); GFR AFRICAN-AMERICAN > 60; GFR NON-AFRICAN AMERICAN > 60; LIPASE 50 U/L (23-300)
[2017-08-20 13:49] LABS: ALT/SGPT 42 U/L (9-52); AST/SGOT 32 U/L (14-36); BLOOD UREA NITROGEN 16 mg/dl (7-17)
--- NOTE | 2017-08-20 15:23 | US ---
HISTORY: RUQ pain COMPARISON: None. TECHNIQUE: Sonographic evaluation of the right upper quadrant of the abdomen. FINDINGS: LIVER: Measures 16.2 cm in length. Normal echogenicity of the liver parenchyma. No mass. No intrahepatic bile duct dilatation. GALLBLADDER: Unremarkable. No gallstones. COMMON BILE DUCT: Measures 3 mm. No stones. No dilatation. PANCREAS: Unremarkable as visualized. No mass. No ductal dilatation. RIGHT KIDNEY: Measures 11.8 cm in length. Normal echogenicity. No calculus, mass, or hydronephrosis. AORTA: No aneurysmal dilatation. IVC: Unremarkable. OTHER FINDINGS: None . IMPRESSION: No evidence cholelithiasis or cholecystitis. Unremarkable examination.
--- NOTE | 2017-08-20 15:43 | ED PDOC ---
- Laboratory Results Result Diagrams: 08/20/17 13:17 08/20/17 13:17 Interpretation Of Abn Labs: 14.9 wbc - ECG O2 Sat by Pulse Oximetry: 99 Pulse Ox Interpretation: Normal - CT Scan/US us Other Rad Studies (CT/US): Read By Radiologist Other Rad Interpretation: NO ACUTE - Progress ED Course And Treament: 1500: Took over care from Dr. Cartwright. Fu on imaging US for epigastric pain. 1600: Still with pain. Will get ct. 2043: Stable. AAOx3. Spoke with Dr. San. Will admit. Pain control. He will give further orders when pt. reaches floor. Disposition - Clinical Impression Clinical Impression: Abdominal pain, Colitis, Sepsis - POA Present On Arrival: None - Disposition Disposition: Hospitalized as Observation Patient Disposition Time: 20:00 Condition: FAIR
[2017-08-20] MEDS ORDERED: Iohexol 240 (50 ml) PO ONE (16:11)
[2017-08-20] MEDS ORDERED: Morphine 4 MG/ML VIAL IV ONE (17:01)
[2017-08-20] MEDS ORDERED: Sodium Chloride 0.9% 100 ML ONE (18:49)
[2017-08-20] MEDS ORDERED: Iohexol 300 100 ML IJ ONE (18:50)
--- NOTE | 2017-08-20 19:59 | CT ---
EXAM: CT Abdomen and Pelvis With Intravenous Contrast CLINICAL HISTORY: 27 years old, female; Pain; Abdominal pain; Localized; Right upper quadrant (ruq); Prior surgery; Surgery date: 6+ months; Surgery type: Append. Removed. Hernia repair; Additional info: Abd pain. Sent phy. Doc. TECHNIQUE: Axial computed tomography images of the abdomen and pelvis with intravenous contrast. All CT scans at this facility use one or more dose reduction techniques, viz.: automated exposure control; ma/kV adjustment per patient size (including targeted exams where dose is matched to indication; i.e. head); or iterative reconstruction technique. Coronal and sagittal reformatted images were created and reviewed. CONTRAST: 90 mL of administered intravenously. COMPARISON: CT - ABD PELVIS IV CONTRAST ONLY 2017-02-08 18:43 FINDINGS: Lung bases: Unremarkable. No mass. No consolidation. ABDOMEN: Liver: Mild fatty infiltration. Gallbladder and bile ducts: No calcified stones. No ductal dilation. Pancreas: No ductal dilation. No mass. Spleen: No splenomegaly. Adrenals: No mass. Kidneys and ureters: No mass. Left extrarenal pelvis. No hydronephrosis. Stomach and bowel: Segmental areas of mild mural thickening vs underdistention of large bowel. No associated inflammatory stranding. No obstruction. Appendix: Probable appendectomy. PELVIS: Bladder: Unremarkable. Reproductive: 1.8 x 1.8 x 1.7 cm hypodense lesion within RIGHT ovary. ABDOMEN and PELVIS: Intraperitoneal space: No significant fluid collection. No free air. Bones/joints: No acute fracture. Soft tissues: Tiny umbilical hernia containing fat. Vasculature: Unremarkable. No aneurysm. Lymph nodes: No pathologically enlarged lymph nodes. IMPRESSION: 1. Probable RIGHT ovarian cyst. Consider ultrasound. 2. Mild colitis versus underdistention. Clinical correlation is needed. 3. Incidental/non-acute findings are described above.
[2017-08-20] MEDS ORDERED: Sodium Chloride 0.9% 1,000 ML IV STA (20:05)
[2017-08-20] MEDS ORDERED: Ciprofloxacin 400mg/200ml D5W 400 MG/200 ML BAG IV STA (20:07)
[2017-08-20] MEDS ORDERED: metroNIDAZOLE 500mg/100ml NS 100 ML IV STA (20:07)
[2017-08-20] MEDS ORDERED: HYDROmorphone 0.5 mg/0.5 ml ISec ONE (20:14)
[2017-08-20] MEDS ORDERED: metroNIDAZOLE 500mg/100ml NS 100 ML IVPB ONE (20:46)
[2017-08-20 21:00] LABS: VENOUS BLOOD GAS BASE EXCESS -2.9 mmol/L (0.0-2.0); VENOUS BLOOD GAS PCO2 38 mmHg (40-60); VENOUS BLOOD GAS PO2 53 mm/Hg (30-55); VENOUS BLOOD PH 7.37 (7.32-7.43)
[2017-08-20 21:45] LABS: BARBITURATES, UR NEGATIVE (NEGATIVE); BENZODIAZEPINES, UR NEGATIVE (NEGATIVE); OPIATES, UR POSITIVE (NEGATIVE); PHENCYCLIDINE, UR NEGATIVE (NEGATIVE)
[2017-08-20] MEDS ORDERED: Ciprofloxacin 400mg/200ml D5W 400 MG/200 ML BAG IVPB ONE (22:21)
[2017-08-20] MEDS: Dextrose 5%/Lactated Ringer's 1,000 ML IV SCH (22:48)
[2017-08-21] MEDS ORDERED: metroNIDAZOLE 500mg/100ml NS 100 ML IVPB SCH (01:00)
[2017-08-21 01:13] LABS: VENOUS BLOOD GAS BASE EXCESS -2.2 mmol/L (0.0-2.0); VENOUS BLOOD GAS PCO2 37 mmHg (40-60); VENOUS BLOOD GAS PO2 65 mm/Hg (30-55); VENOUS BLOOD PH 7.39 (7.32-7.43)
[2017-08-21 06:12] LABS: HEMOGLOBIN 12.2 g/dL (12.0-16.0); MEAN CELL VOLUME 89.7 fl (81.0-99.0); MEAN CORPUSCULAR HEMOGLOBIN 30.1 pg (27.0-31.0); MEAN CORPUSCULAR HGB CONC 33.5 g/dL (33.0-37.0); RBC 4.05 Mil/uL (3.80-5.20); RED CELL DISTRIBUTION WIDTH 12.9 % (11.5-14.5); WHITE BLOOD COUNT 12.2 K/uL (4.8-10.8)
[2017-08-21] MEDS: metroNIDAZOLE 500mg/100ml NS 100 ML IVPB SCH ×3 (06:15→20:55)
[2017-08-21 06:32] LABS: ALB/GLOB RATIO 1.3 (1.0-2.1); ALBUMIN 3.8 g/dL (3.5-5.0); ALT/SGPT 36 U/L (9-52); AST/SGOT 24 U/L (14-36); BLOOD UREA NITROGEN 14 mg/dl (7-17); GFR AFRICAN-AMERICAN > 60; GFR NON-AFRICAN AMERICAN > 60
[2017-08-21] MEDS ORDERED: Ciprofloxacin 400mg/200ml D5W 400 MG/200 ML BAG IVPB ONE (10:09)
[2017-08-21] MEDS: Ciprofloxacin 400mg/200ml D5W 400 MG/200 ML BAG IVPB SCH ×2 (10:20→19:06)
[2017-08-21] MEDS: Dextrose 5%/Lactated Ringer's 1,000 ML IV SCH ×2 (11:25→19:06)
[2017-08-21] MEDS ORDERED: metroNIDAZOLE 500mg/100ml NS 100 ML IVPB ONE (13:24)
--- NOTE | 2017-08-21 13:58 | CP.PCM.HP ---
History of Present Illness - History of Present Illness History of Present Illness: This is a 27 y/o female admitted through the Er from last night due to multiple episodes of vomiting and diarrhea nausea and abd pains which she claims started after dinner. Claims to have some alcohol intake too, She was noted to be positive for opiates and cannabinoids. Claims that the onset was suden., There was no fever. pain subsided after iv pain meds and today only has RUIQ pain. She claims to have episodes of colitis in the past and takes a colon cleanser meds and gets relief from it. She has no other significant medical problems. CT scan of abd showed mild colitis and small ovarian cyst. WBC was 14.4, She was started on Iv antibiotics. Present on Admission - Present on Admission Any Indicators Present on Admission: No History of DVT/PE: No History of Uncontrolled Diabetes: No Urinary Catheter: No Decubitus Ulcer Present: No Review of Systems - Gastrointestinal Gastrointestinal: Abdominal Pain Past Patient History - Infectious Disease Hx of Infectious Diseases: None - Past Medical History & Family History Past Medical History?: Yes - Past Social History Smoking Status: Current Some Days Smoker - CARDIAC Hx Cardiac Disorders: No - PULMONARY Hx Respiratory Disorders: No - NEUROLOGICAL Hx Neurological Disorder: No - HEENT Hx HEENT Problems: No - RENAL Hx Chronic Kidney Disease: No - ENDOCRINE/METABOLIC Hx Endocrine Disorders: No - HEMATOLOGICAL/ONCOLOGICAL Hx Blood Disorders: No - INTEGUMENTARY Hx Dermatological Problems: No - MUSCULOSKELETAL/RHEUMATOLOGICAL Hx Musculoskeletal Disorders: Yes Hx Falls: Yes - GASTROINTESTINAL Hx Gastrointestinal Disorders: No - GENITOURINARY/GYNECOLOGICAL Hx Genitourinary Disorders: No - PSYCHIATRIC Hx Psychophysiologic Disorder: Yes Hx Substance Use: Yes (uses marijuana) - SURGICAL HISTORY Hx Surgeries: Yes Hx Appendectomy: Yes - ANESTHESIA Hx Anesthesia: Yes Hx Anesthesia Reactions: No Hx Malignant Hyperthermia: No Meds Allergies/Adverse Reactions: Allergies Allergy/AdvReac Type Severity Reaction Status Date / Time No Known Allergies Allergy Verified 08/20/17 12:51 Physical Exam - Head Exam Head Exam: NORMAL INSPECTION - Eye Exam Eye Exam: Normal appearance - ENT Exam ENT Exam: Mucous Membranes Moist - Respiratory Exam Respiratory Exam: Clear to Auscultation Bilateral - Cardiovascular Exam Cardiovascular Exam: REGULAR RHYTHM - GI/Abdominal Exam GI & Abdominal Exam: Soft, Tenderness - Neurological Exam Neurological exam: CN II-XII Intact, Oriented x3 - Psychiatric Exam Psychiatric exam: Normal Mood Results - Vital Signs Recent Vital Signs: Last Vital Signs Temp 98.5 F 08/21/17 13:46 Pulse 77 08/21/17 13:46 Resp 18 08/21/17 13:46 BP 111/69 08/21/17 13:46 Pulse Ox 100 08/21/17 13:46 - Labs Result Diagrams: 08/21/17 06:06 08/21/17 06:06 Labs: Laboratory Results - last 24 hr 08/20/17 08/20/17 08/20/17 20:57 21:00 21:00 WBC RBC Hgb Hct MCV MCH MCHC RDW Plt Count ESR pO2 53 VBG pH 7.37 VBG pCO2 38 L VBG HCO3 22.4 VBG Total CO2 23.2 VBG O2 Sat (Calc) 92.3 H VBG Base Excess -2.9 L VBG Potassium 4.0 Sodium 139.0 Chloride 108.0 H Glucose 106 H Lactate 2.5 H FiO2 21.0 Potassium Carbon Dioxide Anion Gap BUN Creatinine Est GFR ( Amer) Est GFR (Non-Af Amer) Random Glucose Calcium Total Bilirubin AST ALT Alkaline Phosphatase Total Protein Albumin Globulin Albumin/Globulin Ratio Venous Blood Potassium 4.0 Urine Opiates Screen Positive H Urine Methadone Screen Negative Ur Barbiturates Screen Negative Ur Phencyclidine Scrn Negative Ur Amphetamines Screen Negative U Benzodiazepines Scrn Negative U Oth Cocaine Metabols Negative U Cannabinoids Screen Positive H Alcohol, Quantitative < 10 08/21/17 08/21/17 08/21/17 01:10 06:06 06:06 WBC 12.2 H RBC 4.05 Hgb 12.2 Hct 36.3 MCV 89.7 MCH 30.1 MCHC 33.5 RDW 12.9 Plt Count 287 ESR 6 pO2 65 H VBG pH 7.39 VBG pCO2 37 L VBG HCO3 23.1 VBG Total CO2 23.5 VBG O2 Sat (Calc) 96.6 H VBG Base Excess -2.2 L VBG Potassium 3.6 Sodium 138.0 142 Chloride 107.0 107 Glucose 109 H Lactate 1.5 FiO2 21.0 Potassium 3.8 Carbon Dioxide 24 Anion Gap 15 BUN 14 Creatinine 0.7 Est GFR ( Amer) > 60 Est GFR (Non-Af Amer) > 60 Random Glucose 97 Calcium 9.0 Total Bilirubin 0.8 AST 24 ALT 36 Alkaline Phosphatase 43 Total Protein 6.8 Albumin 3.8 Globulin 3.0 Albumin/Globulin Ratio 1.3 Venous Blood Potassium 3.6 Urine Opiates Screen Urine Methadone Screen Ur Barbiturates Screen Ur Phencyclidine Scrn Ur Amphetamines Screen U Benzodiazepines Scrn U Oth Cocaine Metabols U Cannabinoids Screen Alcohol, Quantitative Assessment & Plan (1) Abdominal pain Status: Acute (2) Colitis Status: Acute (3) Gastroenteritis Status: Acute - Assessment and Plan (Free Text) Plan: Cont meds start clear liquids and advance diet as tolerated Cont tx repeat CBC in am cont IV antibiotics.
[2017-08-22] MEDS: metroNIDAZOLE 500mg/100ml NS 100 ML IVPB SCH ×2 (04:22→12:30)
[2017-08-22 08:09] LABS: HEMOGLOBIN 12.1 g/dL (12.0-16.0); MEAN CELL VOLUME 88.8 fl (81.0-99.0); MEAN CORPUSCULAR HEMOGLOBIN 30.7 pg (27.0-31.0); MEAN CORPUSCULAR HGB CONC 34.6 g/dL (33.0-37.0); RBC 3.95 Mil/uL (3.80-5.20); RED CELL DISTRIBUTION WIDTH 12.9 % (11.5-14.5); WHITE BLOOD COUNT 7.9 K/uL (4.8-10.8)
[2017-08-22 09:02] VITALS: BP 105/67; PULSE 66; RESP 20; TEMP 98; O2SAT 99
[2017-08-22] MEDS: Ciprofloxacin 400mg/200ml D5W 400 MG/200 ML BAG IVPB SCH (11:03)
--- NOTE | 2017-08-24 00:37 | CP.PCM.DIS ---
Provider - Provider Date of Admission: 08/20/17 20:42 Attending physician: Arvin San MD Diagnosis - Discharge Diagnosis (1) Abdominal pain Status: Acute (2) Colitis Status: Acute (3) Gastroenteritis Status: Acute Hospital Course - Lab Results Lab Results: Micro Results 08/20/17 21:00 Blood Blood Culture - Preliminary NO GROWTH AFTER 3 DAYS 08/20/17 08:21 Urine,Clean Catch Urine Culture - Final 10-50,000 CFU/ML. MULTIPLE SPECIES. PROBABLE CONTAMINATION. Most Recent Lab Values WBC 7.9 K/uL (4.8-10.8) 08/22/17 05:30 RBC 3.95 Mil/uL (3.80-5.20) 08/22/17 05:30 Hgb 12.1 g/dL (12.0-16.0) 08/22/17 05:30 Hct 35.1 % (34.0-47.0) 08/22/17 05:30 MCV 88.8 fl (81.0-99.0) 08/22/17 05:30 MCH 30.7 pg (27.0-31.0) 08/22/17 05:30 MCHC 34.6 g/dL (33.0-37.0) 08/22/17 05:30 RDW 12.9 % (11.5-14.5) 08/22/17 05:30 Plt Count 266 K/uL (130-400) 08/22/17 05:30 MPV 7.7 fl (7.2-11.7) 08/20/17 13:17 Neut % (Auto) 82.2 % (50.0-75.0) H 08/20/17 13:17 Lymph % (Auto) 13.1 % (20.0-40.0) L 08/20/17 13:17 Simpson % (Auto) 4.0 % (0.0-10.0) 08/20/17 13:17 Eos % (Auto) 0.3 % (0.0-4.0) 08/20/17 13:17 Baso % (Auto) 0.4 % (0.0-2.0) 08/20/17 13:17 Neut # (Auto) 12.2 K/uL (1.8-7.0) H 08/20/17 13:17 Lymph # (Auto) 1.9 K/uL (1.0-4.3) 08/20/17 13:17 Simpson # (Auto) 0.6 K/uL (0.0-0.8) 08/20/17 13:17 Eos # (Auto) 0.0 K/uL (0.0-0.7) 08/20/17 13:17 Baso # (Auto) 0.1 K/uL (0.0-0.2) 08/20/17 13:17 ESR 6 mm/hr (0-20) 08/21/17 06:06 pO2 65 mm/Hg (30-55) H 08/21/17 01:10 VBG pH 7.39 (7.32-7.43) 08/21/17 01:10 VBG pCO2 37 mmHg (40-60) L 08/21/17 01:10 VBG HCO3 23.1 mmol/L 08/21/17 01:10 VBG Total CO2 23.5 mmol/L (22-28) 08/21/17 01:10 VBG O2 Sat (Calc) 96.6 % (40-65) H 08/21/17 01:10 VBG Base Excess -2.2 mmol/L (0.0-2.0) L 08/21/17 01:10 VBG Potassium 3.6 mmol/L (3.6-5.2) 08/21/17 01:10 Sodium 138.0 mmol/L (132-148) 08/21/17 01:10 Chloride 107.0 mmol/L (98-107) 08/21/17 01:10 Glucose 109 mg/dL (65-105) H 08/21/17 01:10 Lactate 1.5 mmol/L (0.7-2.1) 08/21/17 01:10 FiO2 21.0 % 08/21/17 01:10 Sodium 142 mmol/l (132-148) 08/21/17 06:06 Potassium 3.8 MMOL/L (3.6-5.0) 08/21/17 06:06 Chloride 107 mmol/L (98-107) 08/21/17 06:06 Carbon Dioxide 24 mmol/L (22-30) 08/21/17 06:06 Anion Gap 15 (10-20) 08/21/17 06:06 BUN 14 mg/dl (7-17) 08/21/17 06:06 Creatinine 0.7 mg/dl (0.7-1.2) 08/21/17 06:06 Est GFR ( Amer) > 60 08/21/17 06:06 Est GFR (Non-Af Amer) > 60 08/21/17 06:06 Random Glucose 97 mg/dL (65-105) 08/21/17 06:06 Calcium 9.0 mg/dL (8.4-10.2) 08/21/17 06:06 Total Bilirubin 0.8 mg/dl (0.2-1.3) 08/21/17 06:06 AST 24 U/L (14-36) 08/21/17 06:06 ALT 36 U/L (9-52) 08/21/17 06:06 Alkaline Phosphatase 43 U/L (38-126) 08/21/17 06:06 Total Protein 6.8 G/DL (6.3-8.2) 08/21/17 06:06 Albumin 3.8 g/dL (3.5-5.0) 08/21/17 06:06 Globulin 3.0 gm/dL (2.2-3.9) 08/21/17 06:06 Albumin/Globulin Ratio 1.3 (1.0-2.1) 08/21/17 06:06 Lipase 50 U/L (23-300) 08/20/17 13:17 Venous Blood Potassium 3.6 mmol/L (3.6-5.2) 08/21/17 01:10 Urine Opiates Screen Positive (NEGATIVE) H 08/20/17 21:00 Urine Methadone Screen Negative (NEGATIVE) 08/20/17 21:00 Ur Barbiturates Screen Negative (NEGATIVE) 08/20/17 21:00 Ur Phencyclidine Scrn Negative (NEGATIVE) 08/20/17 21:00 Ur Amphetamines Screen Negative (NEGATIVE) 08/20/17 21:00 U Benzodiazepines Scrn Negative (NEGATIVE) 08/20/17 21:00 U Oth Cocaine Metabols Negative (NEGATIVE) 08/20/17 21:00 U Cannabinoids Screen Positive (NEGATIVE) H 08/20/17 21:00 Alcohol, Quantitative < 10 mg/dl (0-10) 08/20/17 21:00 - Hospital Course Hospital Course: This is a 27 y/o female admitted ofr abdominal pain and dehydration. Discharge Exam - Head Exam Head Exam: NORMAL INSPECTION Discharge Plan - Follow Up Plan Condition: FAIR Disposition: HOME/ ROUTINE Instructions: Acute Abdominal Pain (DC) Additional Instructions: make follow-up appointment with Dr. San Referrals: Arvin San MD [Staff Provider] -
== END 2017-08-22 13:56 | disposition home or self-care (01) ==
LOC: H.ER 12:47 → H.ERHOLD 20:42 → H.MEDSURG1 08-21 14:04
PROVIDERS: ADMIT Family Medicine; ATTEND Family Medicine
DX: K52.9 Noninfective gastroenteritis and colitis, unspecified (principal); N83.201 Unspecified ovarian cyst, right side; E86.0 Dehydration; F17.200 Nicotine dependence, unspecified, uncomplicated; Z90.49 Acquired absence of other specified parts of digestive tract
CPT/HCPCS: 36415; 74177; 76705; 80053; 80320; 80324; 80345; 80346; 80349; 80353; 80358; 80361; 81025; 82803; 83690; 83992; 85025; 85027; 85651; 87040; 87086; 96365; 96366; 96367; 96375; 96376; 99285; C9113; G0378; J0744; J1170; J2270; J2405; J2765; J7040; J7120; Q9966; Q9967

== ENCOUNTER 2017-12-29 17:45 | Observation (INO) | payer OTHER ==
[2017-12-29 17:45] VITALS: BMI 25.8
[2017-12-29] MEDS ORDERED: Sodium Chloride 0.9% 2,000 ML IV STA (19:13)
--- NOTE | 2017-12-29 19:16 | ED PDOC ---
HPI: Abdomen Time Seen by Provider: 12/29/17 19:06 Chief Complaint (Nursing): Abdominal Pain Chief Complaint (Provider): ABDOMINAL PAIN/VOMITING History Per: Patient (27 Y/O FEMALE HERE WITH ABDOMINAL PAIN/VOMITING 6 EPISODES TODAY AFTER EATING FAST FOOD YESTERDAY. DENIES ANY DIARRHEA/FEVERS/ CHILLS. H/O APPENDECTOMY. HAS HAD ULTRASOUND 07/2017 WITH NO SIGNS OF GALLSTONES NOTED AT THAT TIME.) Past Medical History Reviewed: Historical Data, Nursing Documentation, Vital Signs Vital Signs: Last Vital Signs Temp 97.9 F 12/29/17 18:31 Pulse 69 12/29/17 18:31 Resp 16 12/29/17 18:31 BP 137/89 12/29/17 18:31 Pulse Ox 99 12/29/17 19:17 - Medical History PMH: Denies: Chronic Kidney Disease - Surgical History Surgical History: Appendectomy, Hernia Repair (inguinal) - Family History Family History: States: Unknown Family Hx - Home Medications Home Medications: Ambulatory Orders Medication Instructions Recorded No Known Home Med 08/20/17 - Allergies Allergies/Adverse Reactions: Allergies Allergy/AdvReac Type Severity Reaction Status Date / Time No Known Allergies Allergy Verified 08/20/17 12:51 Review of Systems ROS Statement: Except As Marked, All Systems Reviewed And Found Negative Gastrointestinal: Positive for: Vomiting, Abdominal Pain Physical Exam - Reviewed Nursing Documentation Reviewed: Yes Vital Signs Reviewed: Yes - Physical Exam Appears: Positive for: Well, Non-toxic, No Acute Distress Head Exam: Positive for: ATRAUMATIC, NORMAL INSPECTION, NORMOCEPHALIC Skin: Positive for: Normal Color, Warm, DRY Eye Exam: Positive for: EOMI, Normal appearance, PERRL ENT: Positive for: Normal ENT Inspection Neck: Positive for: Normal, Painless ROM Cardiovascular/Chest: Positive for: Regular Rate, Rhythm Respiratory: Positive for: CNT, Normal Breath Sounds Gastrointestinal/Abdominal: Positive for: Normal Exam, Soft, Tenderness (MILD EPIGASTRIC TENDERNESS) Back: Positive for: Normal Inspection Extremity: Positive for: Normal ROM Neurologic/Psych: Positive for: Alert, Oriented - Laboratory Results Result Diagrams: 12/29/17 19:18 12/29/17 19:18 Urine POC: Negative Urine dip results: Negative for: Leukocyte Esterase, Blood, Nitrate, Ketones, Glucose, Bilirubin, Protein - ECG O2 Sat by Pulse Oximetry: 99 - Progress ED Course And Treament: PEPCID 20 MG IV X 1 DOSE ZOFRAN 4 MG IV X 1 DOSE NS 2 LITERS WIDE OPEN Disposition - Clinical Impression Clinical Impression: Gastritis - Patient ED Disposition Is Patient to be Admitted: Transfer of Care - Disposition Disposition Time: 19:56 Condition: FAIR Instructions: Gastritis (DC) Patient Signed Over To: Ivon Montano Handoff Comments: PENDING BLOODWORK/RE-EVALUATION
[2017-12-29 19:32] LABS: BASO % 0.1 % (0.0-2.0); HEMOGLOBIN 13.2 g/dL (12.0-16.0); LYMPH # 0.6 K/uL (1.0-4.3); LYMPH % 3.6 % (20.0-40.0); MEAN CELL VOLUME 89.1 fl (81.0-99.0); MEAN CORPUSCULAR HEMOGLOBIN 30.1 pg (27.0-31.0); MEAN CORPUSCULAR HGB CONC 33.8 g/dL (33.0-37.0); MEAN PLATELET VOLUME 7.7 fl (7.2-11.7); MONO # 0.3 K/uL (0.0-0.8); MONO % 1.6 % (0.0-10.0); NEUT % 94.7 % (50.0-75.0); PLATELET COUNT 319 K/uL (130-400); RBC 4.39 Mil/uL (3.80-5.20); RED CELL DISTRIBUTION WIDTH 13.4 % (11.5-14.5); WHITE BLOOD COUNT 16.9 K/uL (4.8-10.8)
[2017-12-29 19:33] LABS: ALB/GLOB RATIO 1.5 (1.0-2.1); ALBUMIN 4.7 g/dL (3.5-5.0); ALT/SGPT 22 U/L (9-52); AST/SGOT 22 U/L (14-36); BLOOD UREA NITROGEN 20 mg/dl (7-17); CALCIUM 9.4 mg/dL (8.4-10.2); GFR AFRICAN-AMERICAN > 60; GFR NON-AFRICAN AMERICAN > 60; LIPASE 34 U/L (23-300)
[2017-12-29] MEDS ORDERED: Iohexol 240 (50 ml) PO ONE (20:39)
--- NOTE | 2017-12-29 20:43 | ED PDOC ---
- Laboratory Results Result Diagrams: 12/29/17 19:18 12/29/17 19:18 Urine POC: Negative - ECG O2 Sat by Pulse Oximetry: 99 - Progress ED Course And Treament: Case endorsed to fiction writer from Blake MONSIVAIS pending labs, re-eval 20:40 Patient states pain worsening, now spread throughout abdomen. WBC [address] abd/pelvis IV toradol, IV zofran ordered EXAM: CT Abdomen and Pelvis With Intravenous Contrast CLINICAL HISTORY: The patient is a 27 years female; Pain and signs and symptoms; Nausea and vomiting and other: Diarrhea; Abdominal pain; Generalized; Prior surgery; Surgery date: 6+ months; Surgery type: Append removed. Inguinal repair; Additional info: Abd pain, vomiting, diarrhea 8:39 PM TECHNIQUE: Axial computed tomography images of the abdomen and pelvis with intravenous contrast. All CT scans at this facility use at least one of these dose optimization techniques: automated exposure control; mA and/or kV adjustment per patient size (includes targeted exams where dose is matched to clinical indication); or iterative reconstruction. Coronal and sagittal reformatted images were created and reviewed. CONTRAST: 90 mL of [id number] administered intravenously. COMPARISON: CT - ABD PELVIS PO IV CONTRAST 2017-08-20 19:18 FINDINGS: Lung bases: Unremarkable. No mass. No consolidation. ABDOMEN: Liver: Unremarkable. No mass. Gallbladder and bile ducts: Unremarkable. No calcified stones. No ductal dilation. Pancreas: Unremarkable. No ductal dilation. Spleen: Unremarkable. No splenomegaly. Adrenals: Unremarkable. No mass. Kidneys and ureters: Unremarkable. No hydronephrosis. Stomach and bowel: Apparent thickening of the colon, suspicious for infectious/ inflammatory colitis. Correlate clinically. PELVIS: Appendix: Appendix not identified. Bladder: Unremarkable. Reproductive: 3 cm cystic structure in the left adnexa. ABDOMEN and PELVIS: Intraperitoneal space: Unremarkable. No free air. No significant fluid collection. Bones/joints: No acute fracture. No dislocation. Soft tissues: Unremarkable. Vasculature: Unremarkable. No abdominal aortic aneurysm. Lymph nodes: Unremarkable. No enlarged lymph nodes. IMPRESSION: 1. Apparent thickening of the colon, suspicious for infectious/inflammatory colitis. Correlate clinically. 2. 3 cm cystic structure in the left adnexa. on re-eval, patient still with pain/nausea. IV morphine, IV zofran ordered 00:00 Patient vomiting Case discussed with Dr. Hall, medical service on-call for admission. IV cipro, IV flagyl ordered Disposition - Clinical Impression Clinical Impression: Colitis, Intractable vomiting with nausea, Abdominal pain - POA Present On Arrival: None - Disposition Disposition: Hospitalized as Observation Patient Disposition Time: 00:03 Condition: FAIR
[2017-12-29] MEDS ORDERED: Iohexol 240 (50 ml) ONE (21:11)
[2017-12-29 21:29] LABS: URINE CLARITY Turbid (Clear); URINE COLOR YELLOW (YELLOW); URINE GLUCOSE (UA) NEGATIVE (Normal)
[2017-12-29 21:30] LABS: URINE BILIRUBIN NEGATIVE (NEGATIVE); URINE BLOOD NEGATIVE (NEGATIVE); URINE PROTEIN 100 mg/dL (NEGATIVE); URINE UROBILINOGEN 0.2-1.0 mg/dL (0.2-1.0)
[2017-12-29 21:31] LABS: SQUAMOUS EPITHIAL 25 /hpf (0-5); URINE AMORPHOUS SEDIMENT FEW /ul (<OCC); URINE LEUKOCYTE ESTERASE NEG Leu/uL (Negative)
[2017-12-29 21:52] LABS: BARBITURATES, UR NEGATIVE (NEGATIVE); BENZODIAZEPINES, UR NEGATIVE (NEGATIVE); OPIATES, UR NEGATIVE (NEGATIVE); PHENCYCLIDINE, UR NEGATIVE (NEGATIVE)
[2017-12-29] MEDS ORDERED: Sodium Chloride 0.9% 50 ML IV ONE (22:10)
[2017-12-29] MEDS ORDERED: Iohexol 300 100 ML IJ ONE (22:10)
[2017-12-29 22:16] LABS: BANDS 3 % (0-2); LYMPHOCYTE 5 % (20-50); MONOCYTE 2 % (0-10); NEUTROPHIL 90 % (42-75); PLATELET ESTIMATE NORMAL (NORMAL); TOTAL CELLS COUNTED 100
[2017-12-29 22:17] LABS: HYPOCHROMIC SLIGHT; MICROCYTOSIS SLIGHT
[2017-12-29] MEDS ORDERED: metroNIDAZOLE 500mg/100ml NS 100 ML IV STA (23:37)
[2017-12-29] MEDS ORDERED: Ciprofloxacin 400mg/200ml D5W 400 MG/200 ML BAG IV ONE (23:37)
[2017-12-29] MEDS ORDERED: metroNIDAZOLE 500mg/100ml NS 100 ML IVPB ONE (23:59)
[2017-12-30] MEDS ORDERED: Ciprofloxacin 400mg/200ml D5W 400 MG/200 ML BAG IVPB ONE
[2017-12-30] MEDS ORDERED: Morphine 4 MG/ML VIAL ONE (00:01)
[2017-12-30 00:22] LABS: VENOUS BLOOD GAS BASE EXCESS -2.9 mmol/L (0.0-2.0); VENOUS BLOOD GAS PCO2 38 mmHg (40-60); VENOUS BLOOD GAS PO2 42 mm/Hg (30-55); VENOUS BLOOD PH 7.37 (7.32-7.43)
[2017-12-30] MEDS ORDERED: Promethazine 25 MG in Sodium Chloride 0.9% 100 ML IVPB STA (00:27)
[2017-12-30] MEDS: Sodium Chloride 0.45% 1,000 ML IV SCH ×2 (04:30→17:18)
--- NOTE | 2017-12-30 08:17 | CP.PCM.HP ---
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 Pt states she ate a lot of fast food beforehand- arabic fries, chicken wings, chicken nuggets. Did not have any other complaints, no diarrhea, no dizziness, no chills or subjective fevers. Received pepcid and zofran in the ED, as well as a 2L NS bolus. CT abd: Apparent thickening of the colon, suspicious for infectious/inflammatory colitis. Cipro and flagyl were started. Pt seen this morning on rounds with Dr. Hall. No acute distress, states she has not vomited overnight but also has had nothing by mouth. Present on Admission - Present on Admission Any Indicators Present on Admission: No Review of Systems - Review of Systems All systems: reviewed and no additional remarkable complaints except - Gastrointestinal Gastrointestinal: Abdominal Pain, Nausea, Vomiting Past Patient History - Infectious Disease Hx of Infectious Diseases: None - Past Medical History & Family History Past Medical History?: Yes - Past Social History Smoking Status: Never Smoked Drugs: Cannabis (on tox screen) - CARDIAC Hx Cardiac Disorders: No - PULMONARY Hx Respiratory Disorders: No - NEUROLOGICAL Hx Neurological Disorder: No - HEENT Hx HEENT Problems: No - RENAL Hx Chronic Kidney Disease: No - ENDOCRINE/METABOLIC Hx Endocrine Disorders: No - HEMATOLOGICAL/ONCOLOGICAL Hx Blood Disorders: No - INTEGUMENTARY Hx Dermatological Problems: No - GASTROINTESTINAL Hx Gastrointestinal Disorders: Yes Hx Colitis: Yes - GENITOURINARY/GYNECOLOGICAL Hx Genitourinary Disorders: No - PSYCHIATRIC Hx Psychophysiologic Disorder: Yes Hx Substance Use: No - SURGICAL HISTORY Hx Appendectomy: Yes Hx Herniorrhaphy: Yes - ANESTHESIA Hx Anesthesia: Yes Hx Anesthesia Reactions: No Hx Malignant Hyperthermia: No Meds Allergies/Adverse Reactions: Allergies Allergy/AdvReac Type Severity Reaction Status Date / Time No Known Allergies Allergy Verified 08/20/17 12:51 Physical Exam - Constitutional Appears: Non-toxic, No Acute Distress - Head Exam Head Exam: NORMAL INSPECTION - Eye Exam Eye Exam: Normal appearance - ENT Exam ENT Exam: Mucous Membranes Moist - Respiratory Exam Respiratory Exam: NORMAL BREATHING PATTERN Additional comments: good breath sounds b/l - Cardiovascular Exam Cardiovascular Exam: REGULAR RHYTHM - GI/Abdominal Exam GI & Abdominal Exam: Soft, Tenderness (mild, diffuse) - Extremities Exam Extremities exam: Positive for: normal inspection. Negative for: calf tenderness - Neurological Exam Neurological exam: Alert, Oriented x3 - Psychiatric Exam Psychiatric exam: Normal Mood - Skin Skin Exam: Dry, Warm Results - Vital Signs Recent Vital Signs: Last Vital Signs Temp 97.9 F 12/30/17 08:01 Pulse 61 12/30/17 08:01 Resp 19 12/30/17 08:01 BP 110/67 12/30/17 08:01 Pulse Ox 98 12/30/17 08:01 - Labs Result Diagrams: 12/29/17 19:18 12/29/17 19:18 Labs: Laboratory Results - last 24 hr 12/29/17 12/29/17 12/29/17 19:18 19:18 20:00 WBC 16.9 H D RBC 4.39 Hgb 13.2 Hct 39.1 MCV 89.1 MCH 30.1 MCHC 33.8 RDW 13.4 Plt Count 319 MPV 7.7 Neut % (Auto) 94.7 H Lymph % (Auto) 3.6 L Anderson % (Auto) 1.6 Eos % (Auto) 0.0 Baso % (Auto) 0.1 Neut # (Auto) 16.0 H Lymph # (Auto) 0.6 L Anderson # (Auto) 0.3 Eos # (Auto) 0.0 Baso # (Auto) 0.0 Neutrophils % (Manual) 90 H Band Neutrophils % 3 H Lymphocytes % (Manual) 5 L Monocytes % (Manual) 2 Platelet Estimate Normal Hypochromasia (manual) Slight Microcytosis (manual) Slight pO2 VBG pH VBG pCO2 VBG HCO3 VBG Total CO2 VBG O2 Sat (Calc) VBG Base Excess VBG Potassium Glucose Lactate FiO2 Sodium 141 Potassium 3.8 Chloride 106 Carbon Dioxide 20 L Anion Gap 19 BUN 20 H Creatinine 0.6 L Est GFR ( Amer) > 60 Est GFR (Non-Af Amer) > 60 Random Glucose 134 H Calcium 9.4 Total Bilirubin 0.5 AST 22 ALT 22 Alkaline Phosphatase 60 Total Protein 7.9 Albumin 4.7 Globulin 3.2 Albumin/Globulin Ratio 1.5 Lipase 34 Venous Blood Potassium Urine Color Yellow Urine Clarity Turbid Urine pH 8.0 Ur Specific Parkman 1.026 Urine Protein 100 Urine Glucose (UA) Negative Urine Ketones Negative Urine Blood Negative Urine Nitrate Negative Urine Bilirubin Negative Urine Urobilinogen 0.2-1.0 Ur Leukocyte Esterase Neg Urine RBC (Auto) 3 Urine Microscopic WBC 4 Ur Squamous Epith Cells 25 H Amorphous Sediment Few H Urine Opiates Screen Urine Methadone Screen Ur Barbiturates Screen Ur Phencyclidine Scrn Ur Amphetamines Screen U Benzodiazepines Scrn U Oth Cocaine Metabols U Cannabinoids Screen 12/29/17 12/30/17 21:09 00:18 WBC RBC Hgb Hct MCV MCH MCHC RDW Plt Count MPV Neut % (Auto) Lymph % (Auto) Anderson % (Auto) Eos % (Auto) Baso % (Auto) Neut # (Auto) Lymph # (Auto) Anderson # (Auto) Eos # (Auto) Baso # (Auto) Neutrophils % (Manual) Band Neutrophils % Lymphocytes % (Manual) Monocytes % (Manual) Platelet Estimate Hypochromasia (manual) Microcytosis (manual) pO2 42 VBG pH 7.37 VBG pCO2 38 L VBG HCO3 22.1 VBG Total CO2 23.2 VBG O2 Sat (Calc) 70.6 H VBG Base Excess -2.9 L VBG Potassium 3.7 Glucose 119 H Lactate 1.6 FiO2 21.0 Sodium 137.0 Potassium Chloride 104.0 Carbon Dioxide Anion Gap BUN Creatinine Est GFR ( Amer) Est GFR (Non-Af Amer) Random Glucose Calcium Total Bilirubin AST ALT Alkaline Phosphatase Total Protein Albumin Globulin Albumin/Globulin Ratio Lipase Venous Blood Potassium 3.7 Urine Color Urine Clarity Urine pH Ur Specific Parkman Urine Protein Urine Glucose (UA) Urine Ketones Urine Blood Urine Nitrate Urine Bilirubin Urine Urobilinogen Ur Leukocyte Esterase Urine RBC (Auto) Urine Microscopic WBC Ur Squamous Epith Cells Amorphous Sediment Urine Opiates Screen Negative Urine Methadone Screen Negative Ur Barbiturates Screen Negative Ur Phencyclidine Scrn Negative Ur Amphetamines Screen Negative U Benzodiazepines Scrn Negative U Oth Cocaine Metabols Negative U Cannabinoids Screen Positive H Assessment & Plan - Assessment and Plan (Free Text) Assessment: 27 yo F with no chronic medical problems, admitted due to intractable vomiting and gastritis. Plan: - admitted to med surg - cipro 400mg Q12/flagyl 500mg Q8 - pepcid, zofran for symptom relief - may try ice chips, liquid diet as tolerated - pain control - IV hydration - lovenox
[2017-12-30] MEDS ORDERED: Enoxaparin 40 mg Syringe SC SCH (09:00)
[2017-12-30] MEDS: Ciprofloxacin 400mg/200ml D5W 400 MG/200 ML BAG IVPB SCH ×2 (10:16→21:24)
[2017-12-30] MEDS: metroNIDAZOLE 500mg/100ml NS 100 ML IVPB SCH ×2 (12:00→17:11)
--- NOTE | 2017-12-30 12:08 | CT ---
Date of service: 12/29/2017 PROCEDURE: CT Abdomen and Pelvis with Oral contrast. HISTORY: Abdominal pain with vomiting and diarrhea. COMPARISON: Comparison made with prior study dated 08/20/2017. TECHNIQUE: Contiguous a the helical/transaxial sections of the abdomen pelvis performed following oral and intravenous injection of approximately 90 cc of Omnipaque 300 contrast material. . Coronal and Sagittal reformats generated. This CT exam was performed using one or more of the following dose reduction techniques: Automated exposure control, adjustment of the mA and/or kV according to patient size, and/or use of iterative reconstruction technique. Radiation dose: Total exam DLP = 587.93 mGy-cm. FINDINGS: LOWER THORAX: Lung bases clear. No evidence of infiltrate effusion or basilar pneumothorax. Heart size within range of normal. No significant pericardial effusion. There is a small hiatal hernia. LIVER: Liver is enlarged measuring nearly 21 cm in CC dimension (measured at mid clavicular line). No obvious masses or collections of. Portal and splenic veins are opacified. GALLBLADDER AND BILE DUCTS: Gallbladder physiologically distended. No evidence of intraluminal gallbladder calculi. Phrygian cap noted PANCREAS: Unremarkable. No mass. No ductal dilatation. The visualized portions of the pancreas unremarkable without masses collections or calcifications. SPLEEN: Spleen exhibits normal size and attenuation pattern without mass collection or calcification. Apparent adjacent splenule within the splenic hilar region. . ADRENALS: No adrenal lesions are identified. KIDNEYS AND URETERS: Kidneys demonstrate relatively symmetric nephrograms. No evidence of nephrolithiasis or hydronephrosis. BLADDER: Urinary bladder is physiologically distended. No evidence of intraluminal urinary bladder calculi. . REPRODUCTIVE: Small approximately 3.4 x 1.6 cm left adnexal cyst. APPENDIX: Appendix is not seen with complete certainty however no obvious inflammatory changes right lower quadrant of the abdomen. BOWEL: Evaluation of the bowel is slightly limited due to incomplete opacification. The stomach is partially cyst distended with contrast material and air. There are several on loops of proximal small bowel in the left mid upper abdomen that exhibit minimal wall thickening. Rule out enteritis. No evidence of acute mechanical small bowel obstruction. Most of the colon is collapsed which presumably in part accounts for slight thick-walled appearance ; peristalsis and unopacified stool may contribute however inflammatory process less likely though not completely excluded. PERITONEUM: Unremarkable. No fluid collection. No free air. Small fat containing umbilical hernia. LYMPH NODES: Unremarkable. No enlarged lymph nodes. VASCULATURE: Unremarkable. No aortic aneurysm. BONES: No fracture or destructive lesion. OTHER FINDINGS: None. IMPRESSION: Hepatomegaly. There are a few loops of proximal small bowel in the left upper and mid abdomen that exhibits slight wall thickening. Rule out enteritis. Most of the colon is collapsed which presumably in part accounts thick-walled appearance ; peristalsis and non-opacified stool may contribute however possibility of an inflammatory process not completely excluded. See above discussion for additional details and findings.
[2017-12-30 13:20] LABS: HEMOGLOBIN 13.4 g/dL (12.0-16.0); MEAN CELL VOLUME 89.4 fl (81.0-99.0); MEAN CORPUSCULAR HEMOGLOBIN 29.5 pg (27.0-31.0); MEAN CORPUSCULAR HGB CONC 33.1 g/dL (33.0-37.0); RBC 4.52 Mil/uL (3.80-5.20); RED CELL DISTRIBUTION WIDTH 13.3 % (11.5-14.5); WHITE BLOOD COUNT 12.8 K/uL (4.8-10.8)
[2017-12-30] MEDS: Enoxaparin 40 mg Syringe SC SCH (17:11)
[2017-12-31] MEDS: metroNIDAZOLE 500mg/100ml NS 100 ML IVPB SCH ×2 (00:06→11:07)
[2017-12-31 00:23] VITALS: RESP 20
[2017-12-31 06:24] LABS: HEMOGLOBIN 12.5 g/dL (12.0-16.0); MEAN CORPUSCULAR HEMOGLOBIN 30.4 pg (27.0-31.0); MEAN CORPUSCULAR HGB CONC 34.1 g/dL (33.0-37.0); RBC 4.13 Mil/uL (3.80-5.20); RED CELL DISTRIBUTION WIDTH 13.3 % (11.5-14.5); WHITE BLOOD COUNT 7.4 K/uL (4.8-10.8)
[2017-12-31 06:59] LABS: BLOOD UREA NITROGEN 8 mg/dl (7-17); CALCIUM 8.6 mg/dL (8.4-10.2); GFR AFRICAN-AMERICAN > 60; GFR NON-AFRICAN AMERICAN > 60
[2017-12-31 08:07] VITALS: BP 140/72; PULSE 69; TEMP 98.2; O2SAT 97
[2017-12-31] MEDS ORDERED: Potassium Chloride 20 mEq ER Tab PO ONE (09:03)
[2017-12-31] MEDS: Ciprofloxacin 400mg/200ml D5W 400 MG/200 ML BAG IVPB SCH (11:07)
[2017-12-31] MEDS: Enoxaparin 40 mg Syringe SC SCH (11:08)
--- NOTE | 2017-12-31 12:59 | PN ---
Copied To: Markie Hall MD Attending MD: Markie Hall MD DATE: 12/31/2017 SUBJECTIVE: The patient seen and examined. Interim events noted. The patient feels much better and was able to tolerate liquid very well without any problem. No abdominal pain today. No chest pain. No shortness of breath. PHYSICAL EXAMINATION: GENERAL: The patient is in no acute distress. VITAL SIGNS: Stable. HEART: S1 and S2. Normal and regular. LUNGS: Good bilateral air exchange. ABDOMEN: Soft and nontender. No organomegaly. No fluids. Bowel sounds are plus and normal. No sign of acute abdomen. No guarding. No rigidity. No rebound. EXTREMITIES: No edema. No calf swelling. No tenderness. No acute ischemia. STATISTICIAN APPLIED: Exam is essentially unchanged. DIAGNOSTIC DATA: Available diagnostic data reviewed. WBC count is down to 7.4. ASSESSMENT AND PLAN: Overall, the patient responded to treatment very well and is clinically stable. The patient is for possible discharge today. Post-discharge followup discussed with the patient. The patient was also advised to be followed up with Gastroenterology for possible endoscopy. Plan as ordered. Markie Hall MD
== END 2017-12-31 15:15 | disposition home or self-care (01) ==
LOC: H.ER 17:45 → H.ERHOLD 12-30 00:02 → H.MEDSURG1 12-30 02:40
PROVIDERS: ADMIT Internal Medicine; ATTEND Internal Medicine
DX: K29.70 Gastritis, unspecified, without bleeding (principal)
CPT/HCPCS: 36415; 74177; 80048; 80053; 80324; 80345; 80346; 80349; 80353; 80358; 80361; 81003; 81025; 82803; 83690; 83992; 85025; 85027; 87040; 87086; 96361; 96365; 96366; 96367; 96372; 96375; 96376; 99285; G0378; J0744; J1650; J1885; J2270; J2405; J2550; J2765; J7030; Q9966; Q9967

== ENCOUNTER 2018-02-21 04:11 | Observation (INO) | payer OTHER ==
[2018-02-21 04:12] VITALS: BMI 25.8
--- NOTE | 2018-02-21 05:14 | ED PDOC ---
HPI: Psych/Substance Abuse Time Seen by Provider: 02/21/18 04:25 Chief Complaint (Nursing): Substance Abuse Chief Complaint (Provider): Substance Abuse History Per: Patient History/Exam Limitations: no limitations Onset/Duration Of Symptoms: Hrs (earlier tonight) Current Symptoms Are (Timing): Still Present Additional Complaint(s): 27 year old female presents to the ED for evaluation of nausea and vomiting associated with epigastric pain radiating into the chest. Patient states at a music festival earlier in the night, she did ryne and drank alcohol, and then the symptoms began. She reports not being able to even keep down water. Otherwise denies any other drugs. PMD: none provided Past Medical History Reviewed: Historical Data, Nursing Documentation, Vital Signs Vital Signs: Last Vital Signs Temp 98.3 F 02/21/18 04:17 Pulse 86 02/21/18 04:17 Resp 23 02/21/18 04:17 BP 149/99 H 02/21/18 04:17 Pulse Ox 99 02/21/18 04:17 - Medical History PMH: Asthma Denies: HIV, Chronic Kidney Disease - Surgical History Surgical History: Appendectomy (at 15 yrs old), Hernia Repair (inguinal) - Family History Family History: States: Unknown Family Hx - Social History Ex-Smoker (has not smoked in the last 12 months): Yes Alcohol: Social Drugs: Cannabis, Other (ryne) - Home Medications Home Medications: Ambulatory Orders Medication Instructions Recorded No Known Home Med 02/21/18 - Allergies Allergies/Adverse Reactions: Allergies Allergy/AdvReac Type Severity Reaction Status Date / Time No Known Allergies Allergy Verified 02/21/18 04:20 Review of Systems ROS Statement: Except As Marked, All Systems Reviewed And Found Negative Gastrointestinal: Positive for: Nausea, Vomiting, Abdominal Pain (epigastric pain radiating into chest) Physical Exam - Reviewed Nursing Documentation Reviewed: Yes Vital Signs Reviewed: Yes - Physical Exam Appears: Positive for: Uncomfortable Head Exam: Positive for: ATRAUMATIC, NORMOCEPHALIC Skin: Positive for: Normal Color. Negative for: Rash Eye Exam: Positive for: Normal appearance ENT: Positive for: Normal ENT Inspection Neck: Positive for: Normal, Painless ROM, Supple Cardiovascular/Chest: Positive for: Regular Rate, Rhythm Respiratory: Positive for: Normal Breath Sounds. Negative for: Accessory Muscle Use, Respiratory Distress Gastrointestinal/Abdominal: Positive for: Normal Exam, Soft, Tenderness (epigastric) Back: Positive for: Normal Inspection Extremity: Positive for: Normal ROM Neurologic/Psych: Positive for: Alert, Oriented (x3) - Laboratory Results Result Diagrams: 02/21/18 17:00 02/21/18 06:13 - ECG O2 Sat by Pulse Oximetry: 99 (RA) Pulse Ox Interpretation: Normal Medical Decision Making Medical Decision Making: A/P: 27 year old female with possible substance abuse with nausea and vomiting Time: 439 Initial Plan: --U-preg --U-dip --Pepcid 20mg IVP --Zofran 4mg IVP x2 [address] Middleton pending re-eval Scribe Attestation: Documented by Cindy Beatty, acting as a scribe for Lucius Ventura MD. Provider Scribe Attestation: All medical record entries made by the Scribe were at my direction and personally dictated by me. I have reviewed the chart and agree that the record accurately reflects my personal performance of the history, physical exam, medical decision making, and the department course for this patient. I have also personally directed, reviewed, and agree with the discharge instructions and disposition. Disposition - Clinical Impression Clinical Impression: Nausea & vomiting - Disposition Disposition: Transfer of Care Disposition Time: 07:00 Condition: STABLE Patient Signed Over To: Arvind Middleton III Handoff Comments: pending re-eval
[2018-02-21] MEDS ORDERED: Sodium Chloride 0.9% 1,000 ML IV STA ×2 (05:15→06:55)
[2018-02-21 06:34] LABS: BASO % 0.4 % (0.0-2.0); EOS % 0.2 % (0.0-4.0); HEMOGLOBIN 13.5 g/dL (12.0-16.0); LYMPH # 1.6 K/uL (1.0-4.3); LYMPH % 13.9 % (20.0-40.0); MEAN CELL VOLUME 89.5 fl (81.0-99.0); MEAN CORPUSCULAR HEMOGLOBIN 29.8 pg (27.0-31.0); MEAN CORPUSCULAR HGB CONC 33.2 g/dL (33.0-37.0); MEAN PLATELET VOLUME 8.3 fl (7.2-11.7); MONO # 0.8 K/uL (0.0-0.8); MONO % 6.9 % (0.0-10.0); NEUT # 8.9 K/uL (1.8-7.0); NEUT % 78.6 % (50.0-75.0); RBC 4.54 Mil/uL (3.80-5.20); RED CELL DISTRIBUTION WIDTH 13.5 % (11.5-14.5); WHITE BLOOD COUNT 11.4 K/uL (4.8-10.8)
[2018-02-21 06:42] LABS: ALB/GLOB RATIO 1.4 (1.0-2.1); ALBUMIN 4.6 g/dL (3.5-5.0); ALT/SGPT 30 U/L (9-52); AST/SGOT 24 U/L (14-36); BLOOD UREA NITROGEN 11 mg/dl (7-17); CALCIUM 9.4 mg/dL (8.4-10.2); GFR NON-AFRICAN AMERICAN > 60
--- NOTE | 2018-02-21 07:05 | ED PDOC ---
- Laboratory Results Result Diagrams: 02/21/18 17:00 02/22/18 05:25 - ECG O2 Sat by Pulse Oximetry: 100 Medical Decision Making Medical Decision Making: recd 7am pending re-eval and dispo. 27F with vomiting/ abd discomfort after reported etoh and MDMA use. 11am remains vomiting, given THC use, haldol 2.5mg IV ordered after EKG reviewed for possible cannibinoid hyperemesis 1230p remains vomiting, blood tinged, c/o abdominal discomfort. prior charts reviewed revealing colitis admission, possible crohns disease? Required additional analgesics 130pm additional vomiting despite multiple antiemetics, IVF, haldol. Now in ED almost 10hrs, unable to tolerate PO, admit med surg hospitalist Disposition - Clinical Impression Clinical Impression: Nausea & vomiting, Abdominal pain, Intractable vomiting - POA Present On Arrival: None - Disposition Disposition: Hospitalized as Observation Patient Disposition Time: 13:00 Condition: STABLE
[2018-02-21 07:53] LABS: BARBITURATES, UR NEGATIVE (NEGATIVE); BENZODIAZEPINES, UR NEGATIVE (NEGATIVE); OPIATES, UR NEGATIVE (NEGATIVE); PHENCYCLIDINE, UR NEGATIVE (NEGATIVE)
--- NOTE | 2018-02-21 14:42 | CP.PCM.HP ---
<Maci Nunez - Last Filed: 02/21/18 14:56> History of Present Illness - History of Present Illness History of Present Illness: 27 year old female with past medical history of colitis presents to the ED for evaluation of nausea and vomiting associated with epigastric pain radiating into the chest that began at 2 AM. Patient states at a music festival yesterday night were she took a questionable amount of pills of ryne and drank alcohol. She reports she began vomiting soon afterwards. She has not been able to tolerate any po including fluids since this morning. She states that her vomitus has been NBNB. She denies fevers, chills, diarrhea, chest pain, palpitations, diaphoresis and shortness of breath. PMD: none provided Surgical history: Appendectomy (at 15 yrs old), Hernia Repair (inguinal) PMH: Colitis followed by Dr. Briseno. Family history: Father with hypertension. Maternal grandmother with a heart problem. Grandfather is an alcoholic. Allergies: NKDA Medications: denies medications at home. Social history: Smokes marijuana 1-2 joints/day for many years. Reports use of Ryne (ecstasy) on previous occasions at Music festivals. Binge drinks once a month with friends (has at least 4 beers in one night). 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 12 point ROS reviewed and negative except for above. ER course: V/S: 98.3F ; 149/99 ; HR: 86 ; Resp: 23 ; Pulse Ox : 99% room air. -Utox: Positive for cannabinoids -CBC: 11.4> 13.5 / 40.7 < 275 -CMP: 141/ 3.7 ; 109 / 22 ; 11/0.5 < 104 -Medications given: Pepcid 20mg IVP; Zofran 4mg IVP x2; Haldol 2.5mg IV Present on Admission - Present on Admission Any Indicators Present on Admission: No History of DVT/PE: No History of Uncontrolled Diabetes: No Urinary Catheter: No Decubitus Ulcer Present: No Past Patient History - Infectious Disease Hx of Infectious Diseases: None - Past Medical History & Family History Past Medical History?: Yes - Past Social History Alcohol: Social Drugs: Cannabis, Other (ryne) - CARDIAC Hx Cardiac Disorders: No - PULMONARY Hx Asthma: Yes - NEUROLOGICAL Hx Neurological Disorder: No - HEENT Hx HEENT Problems: No - RENAL Hx Chronic Kidney Disease: No - ENDOCRINE/METABOLIC Hx Endocrine Disorders: No - HEMATOLOGICAL/ONCOLOGICAL Hx Human Immunodeficiency Virus (HIV): No - INTEGUMENTARY Hx Dermatological Problems: No - MUSCULOSKELETAL/RHEUMATOLOGICAL Hx Falls: No - GASTROINTESTINAL Hx Gastrointestinal Disorders: Yes Hx Colitis: Yes - GENITOURINARY/GYNECOLOGICAL Hx Genitourinary Disorders: No - PSYCHIATRIC Hx Psychophysiologic Disorder: Yes Hx Substance Use: Yes (uses marijuana currently) - SURGICAL HISTORY Hx Appendectomy: Yes (at 15 yrs old) - ANESTHESIA Hx Anesthesia: Yes Hx Anesthesia Reactions: No Hx Malignant Hyperthermia: No Meds Allergies/Adverse Reactions: Allergies Allergy/AdvReac Type Severity Reaction Status Date / Time No Known Allergies Allergy Verified 02/21/18 04:20 Physical Exam - Head Exam Head Exam: NORMAL INSPECTION - Eye Exam Eye Exam: Normal appearance, PERRL - ENT Exam ENT Exam: Mucous Membranes Moist - Respiratory Exam Respiratory Exam: Clear to Auscultation Bilateral, NORMAL BREATHING PATTERN. absent: Chest Wall Tenderness, Decreased Breath Sounds, Rales, Rhonchi, Wheezes, Respiratory Distress - Cardiovascular Exam Cardiovascular Exam: REGULAR RHYTHM, RRR, +S1, +S2. absent: Diastolic murmur, Gallop, Irregular Rhythm, JVD, Rubs, +S4, Systolic Murmur - GI/Abdominal Exam GI & Abdominal Exam: Normal Bowel Sounds, Soft, Tenderness (mild Epigastric tenderness on palpation). absent: Distended, Firm, Guarding, Hernia, Mass, Rebound, Rigid - Rectal Exam Rectal Exam: Deferred - Extremities Exam Extremities exam: Positive for: normal capillary refill, normal inspection, pedal pulses present (+2 dorsalis pedis pulses present bilaterally.). Negative for: calf tenderness, joint swelling, pedal edema, tenderness - Neurological Exam Neurological exam: Oriented x3 Additional comments: Patient seems anxious. - Psychiatric Exam Psychiatric exam: Normal Affect - Skin Skin Exam: Dry, Intact, Normal Color, Warm Results - Vital Signs Recent Vital Signs: Last Vital Signs Temp 98.3 F 02/21/18 13:49 Pulse 83 02/21/18 13:49 Resp 16 02/21/18 13:49 BP 137/82 02/21/18 13:49 Pulse Ox 98 02/21/18 13:49 - Labs Result Diagrams: 02/21/18 06:13 02/21/18 06:13 Labs: Laboratory Results - last 24 hr 02/21/18 02/21/18 02/21/18 06:13 06:13 07:08 WBC 11.4 H RBC 4.54 Hgb 13.5 Hct 40.7 MCV 89.5 MCH 29.8 MCHC 33.2 RDW 13.5 Plt Count 275 MPV 8.3 Neut % (Auto) 78.6 H Lymph % (Auto) 13.9 L [place] % (Auto) 6.9 Eos % (Auto) 0.2 Baso % (Auto) 0.4 Neut # (Auto) 8.9 H Lymph # (Auto) 1.6 [place] # (Auto) 0.8 Eos # (Auto) 0.0 Baso # (Auto) 0.0 Sodium 141 Potassium 3.7 Chloride 109 H Carbon Dioxide 22 Anion Gap 14 BUN 11 Creatinine 0.5 L Est GFR ( Amer) > 60 Est GFR (Non-Af Amer) > 60 Random Glucose 104 Calcium 9.4 Total Bilirubin 0.3 AST 24 ALT 30 Alkaline Phosphatase 52 Total Protein 8.0 Albumin 4.6 Globulin 3.4 Albumin/Globulin Ratio 1.4 Urine Opiates Screen Urine Methadone Screen Ur Barbiturates Screen Ur Phencyclidine Scrn Ur Amphetamines Screen U Benzodiazepines Scrn U Oth Cocaine Metabols U Cannabinoids Screen Alcohol, Quantitative < 10 02/21/18 07:18 WBC RBC Hgb Hct MCV MCH MCHC RDW Plt Count MPV Neut % (Auto) Lymph % (Auto) [place] % (Auto) Eos % (Auto) Baso % (Auto) Neut # (Auto) Lymph # (Auto) [place] # (Auto) Eos # (Auto) Baso # (Auto) Sodium Potassium Chloride Carbon Dioxide Anion Gap BUN Creatinine Est GFR ( Amer) Est GFR (Non-Af Amer) Random Glucose Calcium Total Bilirubin AST ALT Alkaline Phosphatase Total Protein Albumin Globulin Albumin/Globulin Ratio Urine Opiates Screen Negative Urine Methadone Screen Negative Ur Barbiturates Screen Negative Ur Phencyclidine Scrn Negative Ur Amphetamines Screen Negative U Benzodiazepines Scrn Negative U Oth Cocaine Metabols Negative U Cannabinoids Screen Positive H Alcohol, Quantitative Assessment & Plan (1) Nausea & vomiting Status: Acute - Assessment and Plan (Free Text) Assessment: 27 year old female with recent use of Ryne with nausea and vomiting admitted for intractable vomiting. Plan: 1.Nausea and vomiting - Possibly secondary to Ryne use and/ or Cannabinoid hyperemesis syndrome - Admitted to Med/Surg -NPO -IVF: Normal saline @ 200cc/hr. -Anti-emetics: Zofran Q6H PRN and Reglan Q6H prn - S/P Haldol IVP in the E.D. for possible vomiting secondary to cannabinoid hyperemesis syndrome. - F/U CBC and BMP -Monitor vitals. 2. DVT prophylaxis -SCDs and early ambulation. <Juan Hirsch D - Last Filed: 02/21/18 15:19> Results - Vital Signs Recent Vital Signs: Last Vital Signs Temp 98.3 F 02/21/18 13:49 Pulse 83 02/21/18 13:49 Resp 16 02/21/18 13:49 BP 137/82 02/21/18 13:49 Pulse Ox 98 02/21/18 13:49 - Labs Result Diagrams: 02/21/18 06:13 02/21/18 06:13 Labs: Laboratory Results - last 24 hr 02/21/18 02/21/18 02/21/18 06:13 06:13 07:08 WBC 11.4 H RBC 4.54 Hgb 13.5 Hct 40.7 MCV 89.5 MCH 29.8 MCHC 33.2 RDW 13.5 Plt Count 275 MPV 8.3 Neut % (Auto) 78.6 H Lymph % (Auto) 13.9 L [place] % (Auto) 6.9 Eos % (Auto) 0.2 Baso % (Auto) 0.4 Neut # (Auto) 8.9 H Lymph # (Auto) 1.6 [place] # (Auto) 0.8 Eos # (Auto) 0.0 Baso # (Auto) 0.0 Sodium 141 Potassium 3.7 Chloride 109 H Carbon Dioxide 22 Anion Gap 14 BUN 11 Creatinine 0.5 L Est GFR ( Amer) > 60 Est GFR (Non-Af Amer) > 60 Random Glucose 104 Calcium 9.4 Total Bilirubin 0.3 AST 24 ALT 30 Alkaline Phosphatase 52 Total Protein 8.0 Albumin 4.6 Globulin 3.4 Albumin/Globulin Ratio 1.4 Urine Opiates Screen Urine Methadone Screen Ur Barbiturates Screen Ur Phencyclidine Scrn Ur Amphetamines Screen U Benzodiazepines Scrn U Oth Cocaine Metabols U Cannabinoids Screen Alcohol, Quantitative < 10 02/21/18 07:18 WBC RBC Hgb Hct MCV MCH MCHC RDW Plt Count MPV Neut % (Auto) Lymph % (Auto) [place] % (Auto) Eos % (Auto) Baso % (Auto) Neut # (Auto) Lymph # (Auto) [place] # (Auto) Eos # (Auto) Baso # (Auto) Sodium Potassium Chloride Carbon Dioxide Anion Gap BUN Creatinine Est GFR ( Amer) Est GFR (Non-Af Amer) Random Glucose Calcium Total Bilirubin AST ALT Alkaline Phosphatase Total Protein Albumin Globulin Albumin/Globulin Ratio Urine Opiates Screen Negative Urine Methadone Screen Negative Ur Barbiturates Screen Negative Ur Phencyclidine Scrn Negative Ur Amphetamines Screen Negative U Benzodiazepines Scrn Negative U Oth Cocaine Metabols Negative U Cannabinoids Screen Positive H Alcohol, Quantitative Attending/Attestation - Attestation I have personally seen and examined this patient.: Yes I have fully participated in the care of the patient.: Yes I have reviewed all pertinent clinical information: Yes
[2018-02-21] MEDS: Sodium Chloride 0.9% 1,000 ML IV SCH ×2 (14:47→20:00)
[2018-02-21 17:40] LABS: HEMOGLOBIN 12.8 g/dL (12.0-16.0); MEAN CELL VOLUME 89.5 fl (81.0-99.0); MEAN CORPUSCULAR HEMOGLOBIN 29.7 pg (27.0-31.0); MEAN CORPUSCULAR HGB CONC 33.2 g/dL (33.0-37.0); RBC 4.3 Mil/uL (3.80-5.20); RED CELL DISTRIBUTION WIDTH 13.3 % (11.5-14.5); WHITE BLOOD COUNT 11.9 K/uL (4.8-10.8)
[2018-02-21] MEDS ORDERED: Pantoprazole 40 MG in Sodium Chloride 0.9% 100 ML IVPB SCH (23:45)
[2018-02-22] MEDS ORDERED: Pantoprazole 40 MG in Sodium Chloride 0.9% 100 ML IVPB STA (00:16)
--- NOTE | 2018-02-22 00:16 | CARD ---
APPROVED REPORT Date of service: 02/21/2018 EKG Measurement Heart [id number] CT 200P55 [id number] <Conclusion> Normal sinus rhythm with sinus arrhythmia Normal ECG
[2018-02-22] MEDS: Sodium Chloride 0.9% 1,000 ML IV SCH ×2 (03:36→05:35)
[2018-02-22 06:51] LABS: BLOOD UREA NITROGEN 14 mg/dl (7-17); GFR NON-AFRICAN AMERICAN > 60
[2018-02-22 08:09] VITALS: BP 132/81; PULSE 68; RESP 18; TEMP 98.9; O2SAT 100
[2018-02-22] MEDS ORDERED: Lactated Ringer's 1,000 ML IV SCH (08:15)
--- NOTE | 2018-02-22 11:54 | CP.PCM.DIS ---
Provider - Provider Date of Admission: 02/21/18 13:41 Attending physician: Juan Hirsch MD Primary care physician: NO PCP Time Spent in preparation of Discharge (in minutes): 40 Diagnosis - Discharge Diagnosis (1) Intractable vomiting with nausea Status: Resolved Hospital Course - Lab Results Lab Results: Most Recent Lab Values WBC 11.9 K/uL (4.8-10.8) H 02/21/18 17:00 RBC 4.30 Mil/uL (3.80-5.20) 02/21/18 17:00 Hgb 12.8 g/dL (12.0-16.0) 02/21/18 17:00 Hct 38.5 % (34.0-47.0) 02/21/18 17:00 MCV 89.5 fl (81.0-99.0) 02/21/18 17:00 MCH 29.7 pg (27.0-31.0) 02/21/18 17:00 MCHC 33.2 g/dL (33.0-37.0) 02/21/18 17:00 RDW 13.3 % (11.5-14.5) 02/21/18 17:00 Plt Count 256 K/uL (130-400) 02/21/18 17:00 MPV 8.3 fl (7.2-11.7) 02/21/18 06:13 Neut % (Auto) 78.6 % (50.0-75.0) H 02/21/18 06:13 Lymph % (Auto) 13.9 % (20.0-40.0) L 02/21/18 06:13 [place] % (Auto) 6.9 % (0.0-10.0) 02/21/18 06:13 Eos % (Auto) 0.2 % (0.0-4.0) 02/21/18 06:13 Baso % (Auto) 0.4 % (0.0-2.0) 02/21/18 06:13 Neut # (Auto) 8.9 K/uL (1.8-7.0) H 02/21/18 06:13 Lymph # (Auto) 1.6 K/uL (1.0-4.3) 02/21/18 06:13 [place] # (Auto) 0.8 K/uL (0.0-0.8) 02/21/18 06:13 Eos # (Auto) 0.0 K/uL (0.0-0.7) 02/21/18 06:13 Baso # (Auto) 0.0 K/uL (0.0-0.2) 02/21/18 06:13 Sodium 138 mmol/l (132-148) 02/22/18 05:25 Potassium 3.8 MMOL/L (3.6-5.0) 02/22/18 05:25 Chloride 111 mmol/L (98-107) H 02/22/18 05:25 Carbon Dioxide 20 mmol/L (22-30) L 02/22/18 05:25 Anion Gap 11 (10-20) 02/22/18 05:25 BUN 14 mg/dl (7-17) 02/22/18 05:25 Creatinine 0.5 mg/dl (0.7-1.2) L 02/22/18 05:25 Est GFR ( Amer) > 60 02/22/18 05:25 Est GFR (Non-Af Amer) > 60 02/22/18 05:25 Random Glucose 93 mg/dL (65-105) 02/22/18 05:25 Calcium 8.0 mg/dL (8.4-10.2) L 02/22/18 05:25 Total Bilirubin 0.3 mg/dl (0.2-1.3) 02/21/18 06:13 AST 24 U/L (14-36) 02/21/18 06:13 ALT 30 U/L (9-52) 02/21/18 06:13 Alkaline Phosphatase 52 U/L (38-126) 02/21/18 06:13 Total Protein 8.0 G/DL (6.3-8.2) 02/21/18 06:13 Albumin 4.6 g/dL (3.5-5.0) 02/21/18 06:13 Globulin 3.4 gm/dL (2.2-3.9) 02/21/18 06:13 Albumin/Globulin Ratio 1.4 (1.0-2.1) 02/21/18 06:13 Urine Opiates Screen Negative (NEGATIVE) 02/21/18 07:18 Urine Methadone Screen Negative (NEGATIVE) 09/30/18 07:18 Ur Barbiturates Screen Negative (NEGATIVE) 02/21/18 07:18 Ur Phencyclidine Scrn Negative (NEGATIVE) 02/21/18 07:18 Ur Amphetamines Screen Negative (NEGATIVE) 02/21/18 07:18 U Benzodiazepines Scrn Negative (NEGATIVE) 02/21/18 07:18 U Oth Cocaine Metabols Negative (NEGATIVE) 02/21/18 07:18 U Cannabinoids Screen Positive (NEGATIVE) H 02/21/18 07:18 Alcohol, Quantitative < 10 mg/dl (0-10) 02/21/18 07:08 - Hospital Course Hospital Course: 27 y/o F with hx of colitis was admitted 02/21/2018 because of intractable vomiting that began after she consumed ryne, and alcohol while at a music festival. In ED, patient was made NPO, started on IV fluids, given zofran, protonix, and torodol. Urine tox was positive for canabinoids. This morning, the patient tolerated PO fluids without any nausea, vomitting or abdominal pain. Regular diet was then added for lunch, which patient has also tolerated without any complaints. 1. Intractable Vomiting (resolved) -Likely secondary to cannabis hyperemesis syndrome -Patient tolerating PO regular diet -Patient will follow up with [facility] Discharge Exam - Head Exam Head Exam: ATRAUMATIC, NORMOCEPHALIC - Eye Exam Additional comments: No conjunctival injection - Neck Exam Neck exam: Lymphadenopathy - Respiratory Exam Respiratory Exam: Clear to PA & Lateral - Cardiovascular Exam Cardiovascular Exam: +S1, +S2 - GI/Abdominal Exam GI & Abdominal Exam: Normal Bowel Sounds, Unremarkable Additional comments: soft, nontender, no rigidity, no guarding - Neurological Exam Neurological exam: Oriented x3 - Psychiatric Exam Psychiatric exam: Normal Affect, Normal Mood - Skin Skin Exam: Dry, Intact Discharge Plan - Follow Up Plan Condition: STABLE Disposition: HOME/ ROUTINE Patient education suggested?: Yes Instructions: [place] Diet, Nausea and Vomiting, Adult (DC) Additional Instructions: bland diet for 2 days, avoid spicy and greasy food Referrals: [facility] [place] [Outside]
== END 2018-02-22 13:43 | disposition home or self-care (01) ==
LOC: H.ER 04:11 → H.ERHOLD 13:41 → H.MEDSURG1 15:30
DX: R11.2 Nausea with vomiting, unspecified (principal); F12.90 Cannabis use, unspecified, uncomplicated; F10.10 Alcohol abuse, uncomplicated; J45.909 Unspecified asthma, uncomplicated; Z87.891 Personal history of nicotine dependence
CPT/HCPCS: 36415; 80048; 80053; 80320; 80324; 80345; 80346; 80349; 80353; 80358; 80361; 81025; 83992; 85025; 85027; 87086; 93005; 96360; 96365; 96374; 99285; C9113; G0378; J1630; J1885; J2270; J2405; J2765; J7030

== ENCOUNTER 2018-05-16 08:31 | Observation (INO) | payer SELFPAY ==
[2018-05-16 08:34] VITALS: BMI 24.3
--- NOTE | 2018-05-16 09:10 | ED PDOC ---
HPI: Abdomen Time Seen by Provider: 05/16/18 09:00 Chief Complaint (Nursing): GI Problem Chief Complaint (Provider): Nausea and Vomiting History Per: Patient History/Exam Limitations: no limitations Onset/Duration Of Symptoms: Hrs (four) Outside of [place] travel?: No Current Symptoms Are (Timing): Still Present Context: Other (hx of colitis and consumption of ETOH) Severity: Mild Location Of Pain/Discomfort: Diffuse (there is no point tenderness in any quadrant; pt is complaining of pain due to nausea) Quality Of Discomfort: Cramping Associated Symptoms: Nausea, Vomiting. denies: Fever, Chills, Diarrhea, Loss Of Appetite, Back Pain, Constipation, Urinary Symptoms Alleviating Factors: None Last Bowel Movement: Yesterday Past Medical History Reviewed: Historical Data, Nursing Documentation, Vital Signs Vital Signs: Last Vital Signs Temp 98 F 05/16/18 08:34 Pulse 87 05/16/18 08:34 Resp 20 05/16/18 08:34 BP 137/99 H 05/16/18 08:34 Pulse Ox 100 05/16/18 08:34 - Medical History PMH: Asthma Denies: HIV, Chronic Kidney Disease Other PMH: Colitis - Surgical History Surgical History: Appendectomy (at 15 yrs old), Hernia Repair (inguinal) - Family History Family History: States: Unknown Family Hx - Home Medications Home Medications: Ambulatory Orders Medication Instructions Recorded Ondansetron ODT [Zofran ODT] 4 mg PO TID #9 odt 05/16/18 - Allergies Allergies/Adverse Reactions: Allergies Allergy/AdvReac Type Severity Reaction Status Date / Time No Known Allergies Allergy Verified 05/16/18 08:52 Review of Systems ROS Statement: Except As Marked, All Systems Reviewed And Found Negative Constitutional: Negative for: Fever, Chills, Sweats, Weakness, Malaise Gastrointestinal: Positive for: Nausea, Vomiting Physical Exam - Reviewed Nursing Documentation Reviewed: Yes Vital Signs Reviewed: Yes - Physical Exam Appears: Positive for: Well, Non-toxic, Uncomfortable Head Exam: Positive for: ATRAUMATIC, NORMAL INSPECTION Skin: Positive for: Normal Color, Warm, Dry Eye Exam: Positive for: Normal appearance, EOMI, PERRL, Nystagmus. Negative for: Periorbital swelling, Periorbital tenderness ENT: Positive for: Normal ENT Inspection. Negative for: Sinus Pain/Drainage, Nasal Congestion, Pharyngeal Erythema, Tonsillar Exudate, Tonsillar Swelling Neck: Positive for: Normal, Painless ROM, Supple. Negative for: Decreased ROM Cardiovascular/Chest: Positive for: Regular Rate, Rhythm, Chest Non Tender Respiratory: Positive for: Normal Breath Sounds. Negative for: Decreased Breath Sounds, Accessory Muscle Use, Crackles, Rales, Rhonchi, Stridor, Wheezing, Respiratory Distress Pulses-Carotid (L): 2+ Pulses-Carotid (R): 2+ Pulses-Radial (L): 2+ Pulses-Radial (R): 2+ Gastrointestinal/Abdominal: Positive for: Normal Exam, Bowel Sounds (active in all four quadrants without point tenderness in any quadrant), Soft. Negative for: Tenderness, Organomegaly, Mass, Distended, Guarding, Rebound Back: Positive for: Normal Inspection. Negative for: L CVA Tenderness, R CVA Tenderness - Laboratory Results Result Diagrams: 05/16/18 09:10 05/16/18 09:10 - ECG O2 Sat by Pulse Oximetry: 100 Medical Decision Making Medical Decision Making: Pt has a hx of colitis and canibas hyperemia; admits to consumming alcohol and smoking marijuana last evening. Pt provided fluids; blood work is negative for as is the UA for any issue of clinical significance; pt tx in ED with reglan; zofran, 3L IV fluids; protonix; there is no signs of sepsis or fever Pt uncomforatable but passes a PO challenge prior to discharge; urged to follow up with the brake operator sheet metal that was referred to her for her Colitis symptoms. Pt acknowledged this and said that she would this week. Disposition - Clinical Impression Clinical Impression: Abdominal pain, Abdominal pain, Colitis Clinical Impression: (Ruled Out): Sepsis - Patient ED Disposition Is Patient to be Admitted: No Doctor Will See Patient In The: Office Counseled Patient/Family Regarding: Studies Performed, Diagnosis, Need For Fol lowup - Disposition Disposition: Routine/Home Disposition Time: 15:11 Condition: STABLE Additional Instructions: follow up with brake operator [employer] referred previously follow up with PMD Prescriptions: Ondansetron ODT [Zofran ODT] 4 mg PO TID #9 odt Instructions: Colitis, Colitis (DC) Forms: [employer] (German)
[2018-05-16] MEDS: Sodium Chloride 0.9% 1,000 ML IV SCH ×7 (09:27→21:57)
[2018-05-16 09:34] LABS: ALB/GLOB RATIO 1.4 (1.0-2.1); ALT/SGPT 41 U/L (9-52); AST/SGOT 34 U/L (14-36); BLOOD UREA NITROGEN 13 mg/dl (7-17); CALCIUM 9.3 mg/dL (8.4-10.2); GFR NON-AFRICAN AMERICAN > 60; LIPASE 30 U/L (23-300)
[2018-05-16 09:36] LABS: BASO % 0.3 % (0.0-2.0); EOS % 0.1 % (0.0-4.0); HEMOGLOBIN 13.7 g/dL (12.0-16.0); LYMPH # 0.7 K/uL (1.0-4.3); MEAN CELL VOLUME 91.2 fl (81.0-99.0); MEAN CORPUSCULAR HEMOGLOBIN 29.5 pg (27.0-31.0); MEAN CORPUSCULAR HGB CONC 32.4 g/dL (33.0-37.0); MEAN PLATELET VOLUME 7.8 fl (7.2-11.7); MONO # 0.2 K/uL (0.0-0.8); NEUT # 8.3 K/uL (1.8-7.0); NEUT % 89.6 % (50.0-75.0); NRBC % 0.1 % (0.0-0.0); PLATELET COUNT 312 K/uL (130-400); RBC 4.64 Mil/uL (3.80-5.20); RED CELL DISTRIBUTION WIDTH 13.3 % (11.5-14.5); WHITE BLOOD COUNT 9.2 K/uL (4.8-10.8)
[2018-05-16 09:59] LABS: SQUAMOUS EPITHIAL 3 /hpf (0-5); URINE AMORPHOUS SEDIMENT RARE /ul (<OCC); URINE BACTERIA RARE (<OCC); URINE BILIRUBIN NEGATIVE (NEGATIVE); URINE BLOOD NEGATIVE (NEGATIVE); URINE CLARITY CLOUDY (Clear); URINE COLOR YELLOW (YELLOW); URINE GLUCOSE (UA) NEG (NEGATIVE); URINE LEUKOCYTE ESTERASE NEG Leu/uL (Negative); URINE PROTEIN 100 mg/dL (NEGATIVE); URINE UROBILINOGEN 0.2-1.0 mg/dL (0.2-1.0)
[2018-05-16 11:22] LABS: LYMPHOCYTE 10 % (20-50); MONOCYTE 4 % (0-10); NEUTROPHIL 86 % (42-75); TOTAL CELLS COUNTED 100
[2018-05-16 11:23] LABS: GIANT PLATELETS PRESENT; HYPERSEGMENTATION PRESENT; LARGE PLATELETS PRESENT; PLATELET ESTIMATE NORMAL (NORMAL)
[2018-05-16] MEDS ORDERED: Iohexol 300 100 ML IJ ONE (17:13)
[2018-05-16] MEDS ORDERED: Sodium Chloride 0.9% 50 ML IV ONE (17:13)
--- NOTE | 2018-05-16 18:31 | CT ---
Date of service: 05/16/2018 PROCEDURE: CT Abdomen and Pelvis. HISTORY: Rule out colitis COMPARISON: Comparison made with CT scan abdomen pelvis 01/30/2018 TECHNIQUE: Contiguous axial images of the abdomen and pelvis performed following intravenous injection of approximately 95 cc Omnipaque 300 contrast material. Additional 2D sagittal and coronal reformats generated. Radiation dose: Total exam DLP = 674.64 mGy-cm. This CT exam was performed using one or more of the following dose reduction techniques: Automated exposure control, adjustment of the mA and/or kV according to patient size, and/or use of iterative reconstruction technique. FINDINGS: LOWER THORAX: Lung bases clear. Heart size normal. Small hiatal hernia. LIVER: Liver is enlarged measuring nearly 20 cm in CC dimension. No obvious hepatic mass or collection. Portal and splenic veins opacified. GALLBLADDER AND BILE DUCTS: Unremarkable. PANCREAS: Unremarkable. No mass. No ductal dilatation. SPLEEN: Unremarkable. No splenomegaly. Small splenule present. ADRENALS: Unremarkable. KIDNEYS AND URETERS: Kidneys demonstrate symmetric nephrograms. No evidence of nephrolithiasis or hydronephrosis. BLADDER: Grossly unremarkable. REPRODUCTIVE: Questionable small left adnexal cyst APPENDIX: Appendix is not seen with certainty on this exam however no obvious inflammatory changes right lower quadrant of the abdomen BOWEL: Evaluation of the bowel is limited due to the lack of oral contrast material. The stomach is partially distended with food debris liquid and air. Visualized loops of small bowel exhibit normal contour and caliber. No evidence of acute mechanical small bowel obstruction. The transverse and descending colon collapsed which in part account for slight thick-walled appearance however the possibility of mild colitis cannot be completely excluded based on this study. Clinical correlation recommended. PERITONEUM: Unremarkable. No fluid collection. No free air. LYMPH NODES: Unremarkable. No enlarged lymph nodes. VASCULATURE: Unremarkable. No aortic aneurysm. No aortic atherosclerotic calcification or mural plaque present. BONES: No acute compression fractures no retropulsed fragments OTHER FINDINGS: None. IMPRESSION: Hepatomegaly with fatty hepatic infiltration. There is collapse of the transverse and descending colon which in part accounts for thick-walled appearance however the possibility of a mild colitis not excluded
[2018-05-17 06:11] LABS: BASO % 0.2 % (0.0-2.0); EOS % 0.1 % (0.0-4.0); HEMOGLOBIN 12.2 g/dL (12.0-16.0); LYMPH # 1.4 K/uL (1.0-4.3); LYMPH % 12.3 % (20.0-40.0); MEAN CORPUSCULAR HEMOGLOBIN 29.3 pg (27.0-31.0); MEAN CORPUSCULAR HGB CONC 32.9 g/dL (33.0-37.0); MONO # 0.8 K/uL (0.0-0.8); MONO % 7.1 % (0.0-10.0); NEUT # 9.3 K/uL (1.8-7.0); NEUT % 80.3 % (50.0-75.0); RBC 4.17 Mil/uL (3.80-5.20); RED CELL DISTRIBUTION WIDTH 13.3 % (11.5-14.5); WHITE BLOOD COUNT 11.6 K/uL (4.8-10.8)
[2018-05-17 06:26] LABS: ALB/GLOB RATIO 1.4 (1.0-2.1); ALT/SGPT 39 U/L (9-52); AST/SGOT 28 U/L (14-36); BLOOD UREA NITROGEN 8 mg/dl (7-17); CALCIUM 8.6 mg/dL (8.4-10.2); GFR NON-AFRICAN AMERICAN > 60
[2018-05-17] MEDS: Sodium Chloride 0.9% 1,000 ML IV SCH ×3 (08:02→18:02)
[2018-05-17 08:24] VITALS: RESP 18
--- NOTE | 2018-05-17 11:17 | CP.PCM.HP ---
<Mehrdad Lozano - Last Filed: 05/17/18 12:02> History of Present Illness - History of Present Illness History of Present Illness: 27 y/o F with no significant PMHx presents to ED with nausea and multiple episodes of vomiting. Patient reports drinking alcohol(Rose) and marijuana [employer] when she started felling nauseous and vomited 4-5 times. As per patient she saw blood in vomiting once. Denies passing out or any trauma. Patient also reports associated epigastric and left sided abdominal pain. Denies any chest pain, SOB, fever, chills, headache, dizziness. Initially patient was admitted under Dr. Hall's service but later switched to hospitalist service. 05/17: Patient reports improvement in nausea and vomiting. Abdominal pain improved since yesterday but still mild epigastric and lower abdominal pain. Patient still NPO. 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 CBC, CMP, UA unremarkable, Alcohol quantitative 37 Medications: Reglan; zofran, 3L IV fluids; protonix CT abdomen ordered: Shows Hepatomegaly with fatty hepatic infiltration. There is collapse of the transverse and descending colon which in part accounts for thick-walled appearance however the possibility of a mild colitis not excluded. Present on Admission - Present on Admission Any Indicators Present on Admission: No History of DVT/PE: No History of Uncontrolled Diabetes: No Urinary Catheter: No Decubitus Ulcer Present: No Review of Systems - Constitutional Constitutional: Weakness - EENT Eyes: absent: Change in Vision - Cardiovascular Cardiovascular: absent: Chest Pain at Rest, Diaphoresis, Dyspnea - Respiratory Respiratory: absent: Cough, Dyspnea - Gastrointestinal Gastrointestinal: Abdominal Pain, Nausea, Vomiting. absent: Diarrhea - Genitourinary Genitourinary: absent: Change in Urinary Stream, Dysuria Past Patient History - Infectious Disease Hx of Infectious Diseases: None - Past Medical History & Family History Past Medical History?: Yes - Past Social History Smoking Status: Current Some Days Smoker - CARDIAC Hx Cardiac Disorders: No - PULMONARY Hx Respiratory Disorders: Yes Hx Asthma: Yes - NEUROLOGICAL Hx Neurological Disorder: No - HEENT Hx HEENT Problems: No - RENAL Hx Chronic Kidney Disease: No - ENDOCRINE/METABOLIC Hx Endocrine Disorders: No - HEMATOLOGICAL/ONCOLOGICAL Hx Blood Disorders: No Hx AIDS: No Hx Human Immunodeficiency Virus (HIV): No - INTEGUMENTARY Hx Dermatological Problems: No - MUSCULOSKELETAL/RHEUMATOLOGICAL Hx Musculoskeletal Disorders: No Hx Falls: No - GASTROINTESTINAL Hx Gastrointestinal Disorders: Yes Hx Colitis: Yes - GENITOURINARY/GYNECOLOGICAL Hx Genitourinary Disorders: No - PSYCHIATRIC Hx Psychophysiologic Disorder: Yes Hx Substance Use: Yes (Marijuana) - SURGICAL HISTORY Hx Appendectomy: Yes (at 15 yrs old) - ANESTHESIA Hx Anesthesia: Yes Hx Anesthesia Reactions: No Hx Malignant Hyperthermia: No Meds Allergies/Adverse Reactions: Allergies Allergy/AdvReac Type Severity Reaction Status Date / Time No Known Allergies Allergy Verified 05/16/18 08:52 Physical Exam - Constitutional Appears: Well, No Acute Distress - Head Exam Head Exam: ATRAUMATIC, NORMOCEPHALIC - Eye Exam Eye Exam: EOMI, Normal appearance - ENT Exam ENT Exam: Mucous Membranes Moist - Respiratory Exam Respiratory Exam: Clear to Auscultation Bilateral, NORMAL BREATHING PATTERN. absent: Rhonchi, Wheezes, Respiratory Distress - Cardiovascular Exam Cardiovascular Exam: REGULAR RHYTHM, +S1, +S2 - GI/Abdominal Exam GI & Abdominal Exam: Normal Bowel Sounds, Soft, Tenderness. absent: Distended - Extremities Exam Extremities exam: Negative for: calf tenderness, pedal edema, tenderness - Back Exam Back exam: absent: CVA tenderness (L), CVA tenderness (R) - Neurological Exam Neurological exam: Alert, Oriented x3 - Psychiatric Exam Psychiatric exam: Normal Affect, Normal Mood - Skin Skin Exam: Dry, Intact, Normal Color, Warm Results - Vital Signs Recent Vital Signs: Last Vital Signs Temp 98.9 F 05/17/18 08:23 Pulse 71 05/17/18 08:23 Resp 18 05/17/18 08:23 BP 130/77 05/17/18 08:23 Pulse Ox 97 05/17/18 08:23 - Labs Result Diagrams: 05/17/18 05:45 05/17/18 05:45 Labs: Laboratory Results - last 24 hr 05/16/18 05/17/18 05/17/18 09:10 05:45 05:45 WBC 11.6 H RBC 4.17 Hgb 12.2 Hct 37.1 MCV 89.0 D MCH 29.3 MCHC 32.9 L RDW 13.3 Plt Count 275 MPV 8.0 Neut % (Auto) 80.3 H Lymph % (Auto) 12.3 L [place] % (Auto) 7.1 Eos % (Auto) 0.1 Baso % (Auto) 0.2 Neut # (Auto) 9.3 H Lymph # (Auto) 1.4 [place] # (Auto) 0.8 Eos # (Auto) 0.0 Baso # (Auto) 0.0 Neutrophils % (Manual) 86 H Lymphocytes % (Manual) 10 L Monocytes % (Manual) 4 Hypersegmented Polys Present Platelet Estimate Normal Large Platelets Present Giant Platelets Present Sodium 138 Potassium 3.5 L Chloride 104 Carbon Dioxide 26 Anion Gap 12 BUN 8 Creatinine 0.6 L Est GFR ( Amer) > 60 Est GFR (Non-Af Amer) > 60 Random Glucose 88 Calcium 8.6 Phosphorus 2.0 L Magnesium 1.8 Total Bilirubin 0.7 AST 28 ALT 39 Alkaline Phosphatase 37 L D Total Protein 6.8 Albumin 4.0 Globulin 2.8 Albumin/Globulin Ratio 1.4 Assessment & Plan - Assessment and Plan (Free Text) Assessment: 27 y/o female with no PMHx presented to ED with nausea and intractable vomiting. patient admitted to Med-surg for observation. Plan: Intractable vomiting - Improving - Possibly secondary to alcohol use/intoxication - ETOH 37 in ED - Continue Zofran PRN for nausea - COntinue IVF @ 100 ml/hr, Protonix - GI consulted: Will follow recommendations - Will start patient on blend diet - Monitor clinically. Hypokelemia and Hypophosphatemia - K+ 3.5, Phos 2.0 - Potassium 20 mEq PO once - Monitor BMP Prophylaxis - DVT: SCDs - GI: Protonix 40 mg PO daily <Juan Hirsch D - Last Filed: 05/17/18 12:09> Results - Vital Signs Recent Vital Signs: Last Vital Signs Temp 98.9 F 05/17/18 08:23 Pulse 71 05/17/18 08:23 Resp 18 05/17/18 08:23 BP 130/77 05/17/18 08:23 Pulse Ox 97 05/17/18 08:23 - Labs Result Diagrams: 05/17/18 05:45 05/17/18 05:45 Labs: Laboratory Results - last 24 hr 05/17/18 05/17/18 05:45 05:45 WBC 11.6 H RBC 4.17 Hgb 12.2 Hct 37.1 MCV 89.0 D MCH 29.3 MCHC 32.9 L RDW 13.3 Plt Count 275 MPV 8.0 Neut % (Auto) 80.3 H Lymph % (Auto) 12.3 L [place] % (Auto) 7.1 Eos % (Auto) 0.1 Baso % (Auto) 0.2 Neut # (Auto) 9.3 H Lymph # (Auto) 1.4 [place] # (Auto) 0.8 Eos # (Auto) 0.0 Baso # (Auto) 0.0 Sodium 138 Potassium 3.5 L Chloride 104 Carbon Dioxide 26 Anion Gap 12 BUN 8 Creatinine 0.6 L Est GFR ( Amer) > 60 Est GFR (Non-Af Amer) > 60 Random Glucose 88 Calcium 8.6 Phosphorus 2.0 L Magnesium 1.8 Total Bilirubin 0.7 AST 28 ALT 39 Alkaline Phosphatase 37 L D Total Protein 6.8 Albumin 4.0 Globulin 2.8 Albumin/Globulin Ratio 1.4 Attending/Attestation - Attestation I have personally seen and examined this patient.: Yes I have fully participated in the care of the patient.: Yes I have reviewed all pertinent clinical information: Yes Notes (Text): 05/17/18 12:08 Patient seen and examined with resident. Case discussed and agreed with assessment.
[2018-05-17] MEDS ORDERED: Potassium Phosphate 30 MMOLE in Dextrose 5% In Water 250 ML IV ONE (11:35)
[2018-05-17] MEDS ORDERED: Potassium Chloride 20 mEq ER Tab PO ONE (11:41)
--- NOTE | 2018-05-17 14:19 | CP.PCM.CON ---
History of Present Illness - History of Present Illness History of Present Illness: 27 yo female presenting to ER with nausea and intractable vomiing. Started after drinking a large Rose which she had on empty stomachShe had also been having epigastric and left sided abdominal pain. Uses marijuana once daily. Tod ay patient feels better and would like diet advanced. Review of Systems - Constitutional Constitutional: absent: Chills - EENT Ears: absent: Ear Pain - Cardiovascular Cardiovascular: absent: Chest Pain - Respiratory Respiratory: absent: Cough - Gastrointestinal Gastrointestinal: As Per HPI - Genitourinary Genitourinary: absent: Change in Urinary Stream Past Patient History - Infectious Disease Hx of Infectious Diseases: None - Past Medical History & Family History Past Medical History?: Yes - Past Social History Smoking Status: Current Some Days Smoker - CARDIAC Hx Cardiac Disorders: No - PULMONARY Hx Respiratory Disorders: Yes Hx Asthma: Yes - NEUROLOGICAL Hx Neurological Disorder: No - HEENT Hx HEENT Problems: No - RENAL Hx Chronic Kidney Disease: No - ENDOCRINE/METABOLIC Hx Endocrine Disorders: No - HEMATOLOGICAL/ONCOLOGICAL Hx Blood Disorders: No Hx AIDS: No Hx Human Immunodeficiency Virus (HIV): No - INTEGUMENTARY Hx Dermatological Problems: No - MUSCULOSKELETAL/RHEUMATOLOGICAL Hx Musculoskeletal Disorders: No Hx Falls: No - GASTROINTESTINAL Hx Gastrointestinal Disorders: Yes Hx Colitis: Yes - GENITOURINARY/GYNECOLOGICAL Hx Genitourinary Disorders: No - PSYCHIATRIC Hx Psychophysiologic Disorder: Yes Hx Substance Use: Yes (Marijuana) - SURGICAL HISTORY Hx Appendectomy: Yes (at 15 yrs old) - ANESTHESIA Hx Anesthesia: Yes Hx Anesthesia Reactions: No Hx Malignant Hyperthermia: No Meds Allergies/Adverse Reactions: Allergies Allergy/AdvReac Type Severity Reaction Status Date / Time No Known Allergies Allergy Verified 05/16/18 08:52 - Medications Medications: Current Medications Sodium Chloride (Sodium Chloride 0.9%) 1,000 mls @ 100 mls/hr IV .Q10H [facility] Stop: 05/17/18 21:13 Last Admin: 05/17/18 08:04 Dose: 100 mls/hr Ondansetron HCl (Zofran Inj) 4 mg IVP Q6 PRN PRN Reason: Nausea/Vomiting Last Admin: 05/17/18 13:06 Dose: 4 mg Pantoprazole Sodium (Protonix Inj) 40 mg IVP DAILY [facility] Last Admin: 05/17/18 08:04 Dose: 40 mg Tramadol HCl (Ultram) 50 mg PO Q6 PRN PRN Reason: Pain, severe (8-10) Physical Exam - Head Exam Head Exam: ATRAUMATIC - Eye Exam Eye Exam: Normal appearance - ENT Exam ENT Exam: Normal Exam - Respiratory Exam Respiratory Exam: Clear to Auscultation Bilateral, NORMAL BREATHING PATTERN - Cardiovascular Exam Cardiovascular Exam: REGULAR RHYTHM, +S1, +S2 - GI/Abdominal Exam GI & Abdominal Exam: Normal Bowel Sounds, Soft, Tenderness Additional comments: mild epigastric tenderness Results - Vital Signs Recent Vital Signs: Last Vital Signs Temp 98.9 F 05/17/18 08:23 Pulse 71 05/17/18 08:23 Resp 18 05/17/18 08:23 BP 130/77 05/17/18 08:23 Pulse Ox 97 05/17/18 08:23 - Labs Result Diagrams: 05/17/18 05:45 05/17/18 05:45 Labs: Laboratory Results - last 24 hr 05/17/18 05/17/18 05:45 05:45 WBC 11.6 H RBC 4.17 Hgb 12.2 Hct 37.1 MCV 89.0 D MCH 29.3 MCHC 32.9 L RDW 13.3 Plt Count 275 MPV 8.0 Neut % (Auto) 80.3 H Lymph % (Auto) 12.3 L [place] % (Auto) 7.1 Eos % (Auto) 0.1 Baso % (Auto) 0.2 Neut # (Auto) 9.3 H Lymph # (Auto) 1.4 [place] # (Auto) 0.8 Eos # (Auto) 0.0 Baso # (Auto) 0.0 Sodium 138 Potassium 3.5 L Chloride 104 Carbon Dioxide 26 Anion Gap 12 BUN 8 Creatinine 0.6 L Est GFR ( Amer) > 60 Est GFR (Non-Af Amer) > 60 Random Glucose 88 Calcium 8.6 Phosphorus 2.0 L Magnesium 1.8 Total Bilirubin 0.7 AST 28 ALT 39 Alkaline Phosphatase 37 L D Total Protein 6.8 Albumin 4.0 Globulin 2.8 Albumin/Globulin Ratio 1.4 Assessment & Plan (1) Abdominal pain Assessment and Plan: Abdominal pain following alcohol use. Currently feeling better CT findings nonspecific. Patient has been drinking apple juice this morning. Will advance diet and she may be discharged if she tolerates diet. Status: Acute
[2018-05-17] MEDS ORDERED: Morphine 4 MG/ML VIAL IVP ONE ×2 (15:04→16:05)
[2018-05-17 16:36] VITALS: O2SAT 99
[2018-05-18 06:22] LABS: BLOOD UREA NITROGEN 6 mg/dl (7-17); CALCIUM 8.4 mg/dL (8.4-10.2); GFR NON-AFRICAN AMERICAN > 60
[2018-05-18 08:20] VITALS: BP 151/98; PULSE 69; TEMP 97.9
[2018-05-18 09:51] LABS: BASO # 0.1 K/uL (0.0-0.2); BASO % 1.1 % (0.0-2.0); EOS % 0.3 % (0.0-4.0); HEMOGLOBIN 12.3 g/dL (12.0-16.0); LYMPH # 2.3 K/uL (1.0-4.3); MEAN CELL VOLUME 90.3 fl (81.0-99.0); MEAN CORPUSCULAR HEMOGLOBIN 29.8 pg (27.0-31.0); MEAN PLATELET VOLUME 8.6 fl (7.2-11.7); MONO # 0.5 K/uL (0.0-0.8); MONO % 6.7 % (0.0-10.0); NEUT # 5.1 K/uL (1.8-7.0); NEUT % 62.9 % (50.0-75.0); NRBC % 0.1 % (0.0-0.0); RBC 4.14 Mil/uL (3.80-5.20); RED CELL DISTRIBUTION WIDTH 13.5 % (11.5-14.5); WHITE BLOOD COUNT 8.1 K/uL (4.8-10.8)
--- NOTE | 2018-05-18 11:14 | CP.PCM.DIS ---
<Mehrdad Lozano - Last Filed: 05/18/18 11:22> Provider - Provider Date of Admission: 05/16/18 17:17 Attending physician: Markie Hall MD Consults: 05/16/18 21:16 Gastroenterology Consult Routine Comment: Consulting Provider: Wilmar Briseno Consulting Physician: Wilmar Briseno Reason for Consult: intractable vomiting/ GI consult Time Spent in preparation of Discharge (in minutes): 30 Diagnosis - Discharge Diagnosis (1) Intractable vomiting with nausea Status: Acute (2) Colitis Status: Acute Hospital Course - Lab Results Lab Results: Most Recent Lab Values WBC 8.1 K/uL (4.8-10.8) 05/18/18 09:42 RBC 4.14 Mil/uL (3.80-5.20) 05/18/18 09:42 Hgb 12.3 g/dL (12.0-16.0) 05/18/18 09:42 Hct 37.4 % (34.0-47.0) 05/18/18 09:42 MCV 90.3 fl (81.0-99.0) 05/18/18 09:42 MCH 29.8 pg (27.0-31.0) 05/18/18 09:42 MCHC 33.0 g/dL (33.0-37.0) 05/18/18 09:42 RDW 13.5 % (11.5-14.5) 05/18/18 09:42 Plt Count 253 K/uL (130-400) 05/18/18 09:42 MPV 8.6 fl (7.2-11.7) 05/18/18 09:42 Neut % (Auto) 62.9 % (50.0-75.0) 05/18/18 09:42 Lymph % (Auto) 29.0 % (20.0-40.0) 05/18/18 09:42 [place] % (Auto) 6.7 % (0.0-10.0) 05/18/18 09:42 Eos % (Auto) 0.3 % (0.0-4.0) 05/18/18 09:42 Baso % (Auto) 1.1 % (0.0-2.0) 05/18/18 09:42 Neut # (Auto) 5.1 K/uL (1.8-7.0) 05/18/18 09:42 Lymph # (Auto) 2.3 K/uL (1.0-4.3) 05/18/18 09:42 [place] # (Auto) 0.5 K/uL (0.0-0.8) 05/18/18 09:42 Eos # (Auto) 0.0 K/uL (0.0-0.7) 05/18/18 09:42 Baso # (Auto) 0.1 K/uL (0.0-0.2) 05/18/18 09:42 Neutrophils % (Manual) 86 % (42-75) H 05/16/18 09:10 Lymphocytes % (Manual) 10 % (20-50) L 05/16/18 09:10 Monocytes % (Manual) 4 % (0-10) 05/16/18 09:10 Hypersegmented Polys Present 05/16/18 09:10 Platelet Estimate Normal (NORMAL) 05/16/18 09:10 Large Platelets Present 05/16/18 09:10 Giant Platelets Present 05/16/18 09:10 Sodium 138 mmol/l (132-148) 05/18/18 05:19 Potassium 3.6 MMOL/L (3.6-5.0) 05/18/18 05:19 Chloride 107 mmol/L (98-107) 05/18/18 05:19 Carbon Dioxide 24 mmol/L (22-30) 05/18/18 05:19 Anion Gap 11 (10-20) 05/18/18 05:19 BUN 6 mg/dl (7-17) L 05/18/18 05:19 Creatinine 0.6 mg/dl (0.7-1.2) L 05/18/18 05:19 Est GFR ( Amer) > 60 05/18/18 05:19 Est GFR (Non-Af Amer) > 60 05/18/18 05:19 Random Glucose 92 mg/dL (65-105) 05/18/18 05:19 Calcium 8.4 mg/dL (8.4-10.2) 05/18/18 05:19 Phosphorus 2.2 mg/dl (2.5-4.5) L 05/18/18 05:19 Magnesium 1.8 MG/DL (1.6-2.3) 05/17/18 05:45 Total Bilirubin 0.7 mg/dl (0.2-1.3) 05/17/18 05:45 AST 28 U/L (14-36) 05/17/18 05:45 ALT 39 U/L (9-52) 05/17/18 05:45 Alkaline Phosphatase 37 U/L (38-126) L D 05/17/18 05:45 Total Protein 6.8 G/DL (6.3-8.2) 05/17/18 05:45 Albumin 4.0 g/dL (3.5-5.0) 05/17/18 05:45 Globulin 2.8 gm/dL (2.2-3.9) 05/17/18 05:45 Albumin/Globulin Ratio 1.4 (1.0-2.1) 05/17/18 05:45 Lipase 30 U/L (23-300) 05/16/18 09:10 Urine Color Yellow (YELLOW) 05/16/18 09:10 Urine Clarity Cloudy (Clear) 05/16/18 09:10 Urine pH 8.0 (5.0-8.0) 05/16/18 09:10 Ur Specific [place] 1.025 (1.003-1.030) 05/16/18 09:10 Urine Protein 100 mg/dL (NEGATIVE) 05/16/18 09:10 Urine Glucose (UA) Neg mg/dL (NEGATIVE) 05/16/18 09:10 Urine Ketones Negative mg/dL (NEGATIVE) 05/16/18 09:10 Urine Blood Negative (NEGATIVE) 05/16/18 09:10 Urine Nitrate Negative (NEGATIVE) 05/16/18 09:10 Urine Bilirubin Negative (NEGATIVE) 05/16/18 09:10 Urine Urobilinogen 0.2-1.0 mg/dL (0.2-1.0) 05/16/18 09:10 Ur Leukocyte Esterase Neg [place]/uL (Negative) 05/16/18 09:10 Urine RBC (Auto) 2 /hpf (0-3) 05/16/18 09:10 Urine Microscopic WBC 1 /hpf (0-5) 05/16/18 09:10 Ur Squamous Epith Cells 3 /hpf (0-5) 05/16/18 09:10 Amorphous Sediment Rare /ul (<OCC) H 05/16/18 09:10 Urine Bacteria Rare (<OCC) 05/16/18 09:10 Alcohol, Quantitative 37 mg/dl (0-10) H 05/16/18 09:10 - Hospital Course Hospital Course: 27 y/o F with no significant PMHx presents to ED with nausea and several episodes of vomiting after drinking alcohol and using marijuana. In ED, VSS patient afebrile with alcohol level 37. CBC, CMP unremarkable, CT abdomen showed hepatomegaly with fatty infiltration and possible colitis. Patient started on Zofran, pantoprazole and GI consulted. Patient's diet advanced to blend diet however patient did not tolerate diet well. On 05/18 tolerated diet well w/o nausea, vomiting and improvement in abdominal pain. Patient to be discharged home on Zofran and pepcid. Patient to F/U with PMD and Dr. Briseno on outpatie nt basis. Patient counseled about alcohol use. Discharge Medications - Zofran ODT 4 mg Q6hr PRN for nausea - Pepcid 20 mg PO BID Discharge Exam - Head Exam Head Exam: ATRAUMATIC - Eye Exam Eye Exam: EOMI, Normal appearance - ENT Exam ENT Exam: Mucous Membranes Moist - Neck Exam Neck exam: Full Rom - Respiratory Exam Respiratory Exam: Clear to PA & Lateral, UNREMARKABLE. absent: Rales, Rhonchi, Wheezes, Respiratory Distress - Cardiovascular Exam Cardiovascular Exam: REGULAR RHYTHM, +S1, +S2 - GI/Abdominal Exam GI & Abdominal Exam: Normal Bowel Sounds, Soft, Tenderness. absent: Distended Additional comments: Mild LLQ tenderness - Back Exam Back exam: absent: CVA tenderness (L), CVA tenderness (R) - Neurological Exam Neurological exam: Alert, Normal Gait, Oriented x3 - Psychiatric Exam Psychiatric exam: Normal Affect, Normal Mood - Skin Skin Exam: Dry, Intact, Normal Color, Warm Discharge Plan - Discharge Medications Prescriptions: Famotidine [Pepcid] 20 mg PO DAILY #20 tab Ondansetron ODT [Zofran ODT] 4 mg PO Q6H PRN #10 odt PRN Reason: Nausea/Vomiting - Follow Up Plan Condition: STABLE Disposition: HOME/ ROUTINE Instructions: Nausea and Vomiting, Adult Additional Instructions: follow up with project administrative assistant referred previously follow up with PMD Referrals: Wilmar Briseno MD [Staff Provider] - <Juan Hirsch - Last Filed: 05/18/18 11:28> Provider - Provider Date of Admission: 05/16/18 17:17 Attending physician: Markie Hall MD Consults: 05/16/18 21:16 Gastroenterology Consult Routine Comment: Consulting Provider: Wilmar Briseno Consulting Physician: Wilmar Briseno Reason for Consult: intractable vomiting/ GI consult Hospital Course - Lab Results Lab Results: Most Recent Lab Values WBC 8.1 K/uL (4.8-10.8) 05/18/18 09:42 RBC 4.14 Mil/uL (3.80-5.20) 05/18/18 09:42 Hgb 12.3 g/dL (12.0-16.0) 05/18/18 09:42 Hct 37.4 % (34.0-47.0) 05/18/18 09:42 MCV 90.3 fl (81.0-99.0) 05/18/18 09:42 MCH 29.8 pg (27.0-31.0) 05/18/18 09:42 MCHC 33.0 g/dL (33.0-37.0) 05/18/18 09:42 RDW 13.5 % (11.5-14.5) 05/18/18 09:42 Plt Count 253 K/uL (130-400) 05/18/18 09:42 MPV 8.6 fl (7.2-11.7) 05/18/18 09:42 Neut % (Auto) 62.9 % (50.0-75.0) 05/18/18 09:42 Lymph % (Auto) 29.0 % (20.0-40.0) 05/18/18 09:42 [place] % (Auto) 6.7 % (0.0-10.0) 05/18/18 09:42 Eos % (Auto) 0.3 % (0.0-4.0) 05/18/18 09:42 Baso % (Auto) 1.1 % (0.0-2.0) 05/18/18 09:42 Neut # (Auto) 5.1 K/uL (1.8-7.0) 05/18/18 09:42 Lymph # (Auto) 2.3 K/uL (1.0-4.3) 05/18/18 09:42 [place] # (Auto) 0.5 K/uL (0.0-0.8) 05/18/18 09:42 Eos # (Auto) 0.0 K/uL (0.0-0.7) 05/18/18 09:42 Baso # (Auto) 0.1 K/uL (0.0-0.2) 05/18/18 09:42 Neutrophils % (Manual) 86 % (42-75) H 05/16/18 09:10 Lymphocytes % (Manual) 10 % (20-50) L 05/16/18 09:10 Monocytes % (Manual) 4 % (0-10) 05/16/18 09:10 Hypersegmented Polys Present 05/16/18 09:10 Platelet Estimate Normal (NORMAL) 05/16/18 09:10 Large Platelets Present 05/16/18 09:10 Giant Platelets Present 05/16/18 09:10 Sodium 138 mmol/l (132-148) 05/18/18 05:19 Potassium 3.6 MMOL/L (3.6-5.0) 05/18/18 05:19 Chloride 107 mmol/L (98-107) 05/18/18 05:19 Carbon Dioxide 24 mmol/L (22-30) 05/18/18 05:19 Anion Gap 11 (10-20) 05/18/18 05:19 BUN 6 mg/dl (7-17) L 05/18/18 05:19 Creatinine 0.6 mg/dl (0.7-1.2) L 05/18/18 05:19 Est GFR ( Amer) > 60 05/18/18 05:19 Est GFR (Non-Af Amer) > 60 05/18/18 05:19 Random Glucose 92 mg/dL (65-105) 05/18/18 05:19 Calcium 8.4 mg/dL (8.4-10.2) 05/18/18 05:19 Phosphorus 2.2 mg/dl (2.5-4.5) L 05/18/18 05:19 Magnesium 1.8 MG/DL (1.6-2.3) 05/17/18 05:45 Total Bilirubin 0.7 mg/dl (0.2-1.3) 05/17/18 05:45 AST 28 U/L (14-36) 05/17/18 05:45 ALT 39 U/L (9-52) 05/17/18 05:45 Alkaline Phosphatase 37 U/L (38-126) L D 05/17/18 05:45 Total Protein 6.8 G/DL (6.3-8.2) 05/17/18 05:45 Albumin 4.0 g/dL (3.5-5.0) 05/17/18 05:45 Globulin 2.8 gm/dL (2.2-3.9) 05/17/18 05:45 Albumin/Globulin Ratio 1.4 (1.0-2.1) 05/17/18 05:45 Lipase 30 U/L (23-300) 05/16/18 09:10 Urine Color Yellow (YELLOW) 05/16/18 09:10 Urine Clarity Cloudy (Clear) 05/16/18 09:10 Urine pH 8.0 (5.0-8.0) 05/16/18 09:10 Ur Specific [place] 1.025 (1.003-1.030) 05/16/18 09:10 Urine Protein 100 mg/dL (NEGATIVE) 05/16/18 09:10 Urine Glucose (UA) Neg mg/dL (NEGATIVE) 05/16/18 09:10 Urine Ketones Negative mg/dL (NEGATIVE) 05/16/18 09:10 Urine Blood Negative (NEGATIVE) 05/16/18 09:10 Urine Nitrate Negative (NEGATIVE) 05/16/18 09:10 Urine Bilirubin Negative (NEGATIVE) 05/16/18 09:10 Urine Urobilinogen 0.2-1.0 mg/dL (0.2-1.0) 05/16/18 09:10 Ur Leukocyte Esterase Neg [place]/uL (Negative) 05/16/18 09:10 Urine RBC (Auto) 2 /hpf (0-3) 05/16/18 09:10 Urine Microscopic WBC 1 /hpf (0-5) 05/16/18 09:10 Ur Squamous Epith Cells 3 /hpf (0-5) 05/16/18 09:10 Amorphous Sediment Rare /ul (<OCC) H 05/16/18 09:10 Urine Bacteria Rare (<OCC) 05/16/18 09:10 Alcohol, Quantitative 37 mg/dl (0-10) H 05/16/18 09:10 Attending/Attestation - Attestation I have personally seen and examined this patient.: Yes I have fully participated in the care of the patient.: Yes I have reviewed all pertinent clinical information, including history, physical exam and plan: Yes Notes (Text): 05/18/18 11:27 Patient seen and examined with resident. Case discussed and agreed with assessment.
== END 2018-05-18 13:30 | disposition home or self-care (01) ==
LOC: H.ER 08:31 → H.ERHOLD 17:17 → H.MEDSURG1 20:55
PROVIDERS: ADMIT Internal Medicine; ATTEND Internal Medicine
DX: K52.9 Noninfective gastroenteritis and colitis, unspecified (principal); F12.90 Cannabis use, unspecified, uncomplicated; Z72.89 Other problems related to lifestyle; J45.909 Unspecified asthma, uncomplicated; F17.200 Nicotine dependence, unspecified, uncomplicated; E87.6 Hypokalemia; E83.39 Other disorders of phosphorus metabolism
CPT/HCPCS: 36415; 74177; 80048; 80053; 81003; 81025; 83690; 83735; 84100; 85025; 96360; 96372; 96374; 99285; C9113; G0378; G0480; J1630; J1885; J2270; J2405; J2765; J7030; Q9967

== ENCOUNTER 2018-05-22 18:50 | Observation (INO) | payer SELFPAY ==
[2018-05-22 18:51] VITALS: BMI 24.3
[2018-05-22] MEDS ORDERED: Lactated Ringer's 1,000 ML IV STA (19:21)
[2018-05-22] MEDS ORDERED: DiphenhydrAMINE 50 mg/ml Inj IVP STA (19:21)
--- NOTE | 2018-05-22 19:29 | ED PDOC ---
HPI: Abdomen Additional Complaint(s): 27 yo female with PMHx cannabinoid use disorder presents with complaints of nausea, multiple episodes of vomiting and diffuse abdominal pain since 4 pm this afternoon. Patient reports she woke up this morning feeling nauseous. States nausea and vomiting making her abdominal pain worse. Admits to smoking marijuana yesterday but denies drinking alcohol since recent discharge from hospital. Patient was admitted to [facility] on 05/16/18 for similar symptoms, GI was consulted and was advised to have EGD outpatient. Patient was discharged home with pepcid and zofran but states she did not fill out the prescription. Denies any chest pain, dyspnea, fever or dizziness. 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) <Sultan Stephania - Last Filed: 05/22/18 23:37> <Caridad Cardoso - Last Filed: 05/23/18 16:40> Time Seen by Provider: 05/22/18 18:57 Chief Complaint (Nursing): Abdominal Pain Supervising Attending Note - Supervising Attending Note The Documented history was done by the: Physician Criminalist The documented physical exam was done by the: Physician Criminalist, Attending Physician - Attestation: I have personally seen and examined this patient.: Yes I have fully participated in the care of the patient.: Yes I have reviewed all pertinent clinical information: Yes - Notes: Notes:: Intractable vomiting despite multiple-antiemetics in ER. DW Dr Romano for hospitalization <Caridad Cardoso - Last Filed: 05/23/18 16:40> Past Medical History Vital Signs: Last Vital Signs Temp 98.3 F 05/22/18 18:53 Pulse 79 05/22/18 18:53 Resp 18 05/22/18 18:53 BP 149/109 H 05/22/18 18:53 Pulse Ox 99 05/22/18 18:53 - Medical History PMH: Asthma Denies: HIV, Chronic Kidney Disease - Surgical History Surgical History: Appendectomy (at 15 yrs old), Hernia Repair (inguinal) - Family History Family History: States: Unknown Family Hx <Chaseley - Last Filed: 05/22/18 23:37> Vital Signs: Last Vital Signs Temp 98.9 F 05/23/18 09:33 Pulse 80 05/23/18 09:33 Resp 20 05/23/18 09:33 BP 139/64 05/23/18 09:33 Pulse Ox 99 05/23/18 09:33 <Caridad Cardoso - Last Filed: 05/23/18 16:40> - Home Medications Home Medications: Ambulatory Orders Medication Instructions Recorded RX: Famotidine [Pepcid] 20 mg PO DAILY #20 tab 05/18/18 RX: Ondansetron ODT [Zofran ODT] 4 mg PO Q6H PRN #10 odt 05/18/18 ALPRAZolam [Xanax] 0.25 mg PO Q4 PRN #5 tab 05/23/18 - Allergies Allergies/Adverse Reactions: Allergies Allergy/AdvReac Type Severity Reaction Status Date / Time PORK Allergy VOMITING Verified 05/22/18 18:53 Review of Systems ROS Statement: Except As Marked, All Systems Reviewed And Found Negative <ChaseleyNassau - Last Filed: 05/22/18 23:37> Physical Exam - Physical Exam Appears: Positive for: Non-toxic, Uncomfortable (due to pain) Head Exam: Positive for: ATRAUMATIC, NORMOCEPHALIC Skin: Positive for: Normal Color, Warm Neck: Positive for: Normal, Supple Cardiovascular/Chest: Positive for: Regular Rate, Rhythm. Negative for: Murmur Respiratory: Positive for: Normal Breath Sounds. Negative for: Crackles, Rales, Wheezing, Respiratory Distress Gastrointestinal/Abdominal: Positive for: Soft, Tenderness (mild epigastric tenderness). Negative for: Distended, Guarding, Rebound Extremity: Positive for: Normal ROM. Negative for: Pedal Edema, Calf Tenderness Neurologic/Psych: Positive for: Alert, Oriented <ChaseleyNassau - Last Filed: 05/22/18 23:37> - Laboratory Results Result Diagrams: 05/22/18 20:21 05/22/18 20:01 - ECG O2 Sat by Pulse Oximetry: 99 - Progress ED Course And Treament: 27 yo female presents to ED complaints of nausea, vomiting and abdominal pain. DDX include cannabinoid induced hyperemesis, gastritis or colitis. Plan: CBC W/ DIFF CMP Mg PHOS LACTIC ACID ETOH LEVEL LIPASE UDS URINE HCG IVF LR 1 L @1000 CC/HR IVF D5 LR @125 CC/HR CAPSAICIN CREAM TOP TO ABDOMEN BENARDRYL 25 MG IVP FAMOTIDINE ZOFRAN 8 MG IVP REGLAN RE-EVALUATE Time 23:30 Patient continues to vomit despite medical treatments with capsaicin cream, zofran, reglan, famotidine and benadryl Patient wbc is 20.7, UA was neg for leukocytes and nitrite Patient will be admitted to hospitalist for intractable vomiting likely cannabinoid induced. Plan d/w with Dr. Cardoso - Physician Consult Information Physician Contacted: Evelyn Romano Outcome Of Conversation: Will be admitted for intractable vomiting. <Sultan Stephania - Last Filed: 05/22/18 23:37> - Laboratory Results Result Diagrams: 05/23/18 06:30 05/23/18 06:30 <Caridad Cardoso - Last Filed: 05/23/18 16:40> Disposition - Patient ED Disposition Is Patient to be Admitted: Yes - Disposition Disposition Time: 23:36 - Pt Status Changed To: Hospital Disposition Of: IP to OP/OBS (Code 44) <Sultan Stephania - Last Filed: 05/22/18 23:37> <Caridad Cardoso - Last Filed: 05/23/18 16:40> - Clinical Impression Clinical Impression: Intractable vomiting - Disposition Condition: FAIR
[2018-05-22] MEDS ORDERED: DiphenhydrAMINE 50 mg/ml Inj ONE (19:52)
[2018-05-22 20:30] LABS: BARBITURATES, UR NEGATIVE (NEGATIVE); BENZODIAZEPINES, UR NEGATIVE (NEGATIVE); OPIATES, UR NEGATIVE (NEGATIVE); PHENCYCLIDINE, UR NEGATIVE (NEGATIVE)
[2018-05-22 20:31] LABS: ALB/GLOB RATIO 1.4 (1.0-2.1); ALBUMIN 4.5 g/dL (3.5-5.0); ALT/SGPT 24 U/L (9-52); AST/SGOT 18 U/L (14-36); BLOOD UREA NITROGEN 14 mg/dl (7-17); CALCIUM 9.5 mg/dL (8.4-10.2); GFR NON-AFRICAN AMERICAN > 60; LIPASE 51 U/L (23-300)
[2018-05-22 21:02] LABS: BASO % 0.2 % (0.0-2.0); EOS % 0.2 % (0.0-4.0); HEMOGLOBIN 13.8 g/dL (12.0-16.0); LYMPH # 1.2 K/uL (1.0-4.3); LYMPH % 5.6 % (20.0-40.0); MEAN CELL VOLUME 90.9 fl (81.0-99.0); MEAN CORPUSCULAR HEMOGLOBIN 29.7 pg (27.0-31.0); MEAN CORPUSCULAR HGB CONC 32.6 g/dL (33.0-37.0); MEAN PLATELET VOLUME 8.3 fl (7.2-11.7); MONO # 1.1 K/uL (0.0-0.8); MONO % 5.1 % (0.0-10.0); NEUT # 18.4 K/uL (1.8-7.0); NEUT % 88.9 % (50.0-75.0); PLATELET COUNT 332 K/uL (130-400); RBC 4.64 Mil/uL (3.80-5.20); RED CELL DISTRIBUTION WIDTH 13.6 % (11.5-14.5); WHITE BLOOD COUNT 20.7 K/uL (4.8-10.8)
[2018-05-22] MEDS: Dextrose 5%/Lactated Ringer's 1,000 ML IV SCH (21:06)
[2018-05-22 21:27] LABS: BASOPHIL 1 % (0-2); LYMPHOCYTE 7 % (20-50); MONOCYTE 4 % (0-10); NEUTROPHIL 88 % (42-75); TOTAL CELLS COUNTED 100
[2018-05-22 21:28] LABS: ANISOCYTOSIS SLIGHT; LARGE PLATELETS PRESENT; PLATELET ESTIMATE NORMAL (NORMAL)
[2018-05-22] MEDS ORDERED: Dextrose 5%/0.45% NS 1,000 ML IV SCH (23:45)
--- NOTE | 2018-05-23 00:12 | CP.PCM.HP ---
History of Present Illness - History of Present Illness History of Present Illness: 27 yo F with history cannabinoid use disorder and intractable vomiting admitted due to intractable vomiting. Pt was seen in ED with Dr. Romano; pt was sleepy and not agreeable to full interview; limited history taken from pt, and also from ED note. Pt stated her pain started this afternoon, around 4 pm. She admits to smoking marijuana yesterday for the first time since her discharge from this facility on 05/18 (states she used a pen prior to yesterday, but yesterday was first day she smoked the plant). States she has vomited many times since this afternoon, does not quantify amount. Vomit observed to be liquid, clear-yellow, without blood. Does not offer complaints about bowel habits, no diarrhea. She was admitted to this facility on 05/16 with similar symptoms; at that time GI was consulted and was advised to have EGD outpatient. Patient was discharged home with pepcid and zofran but stated in ED that she did not fill those prescriptions. Denied any chest pain, dyspnea, fever or dizziness. 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) ED course: Vitals: afebrile 98.3, HR 79, RR 18, SpO2 99 on room air; initial BP elevated 149/109 likely due to vomiting; later BP 127/72 Labs: CBC: WBC 20.7, Hgb 13.8, Hct 42.2, PLT 332 CMP: Na,K, Cl wnl, CO2 19, BUN/Cr 14/0.7, random glucose 129 Lactate 1.0 Lipase 51 AST/ALT 18/24, wnl Toxicology - positive for cannabinoids Received: 1L Lactated Ringers bolus Zofran 8 mg Reglan 10 mg Benadryl 25 mg Pepcid 20 mg Topical capsaicin cream x2 Present on Admission - Present on Admission Any Indicators Present on Admission: No Review of Systems - Review of Systems Review of Systems: as per hpi Past Patient History - Infectious Disease Hx of Infectious Diseases: None - Past Medical History & Family History Past Medical History?: Yes - Past Social History Smoking Status: Current Some Days Smoker Alcohol: Occasional Drugs: Cannabis - CARDIAC Hx Cardiac Disorders: No - PULMONARY Hx Asthma: Yes - NEUROLOGICAL Hx Neurological Disorder: No - HEENT Hx HEENT Problems: No - RENAL Hx Chronic Kidney Disease: No - ENDOCRINE/METABOLIC Hx Endocrine Disorders: No - HEMATOLOGICAL/ONCOLOGICAL Hx Human Immunodeficiency Virus (HIV): No - INTEGUMENTARY Hx Dermatological Problems: No - MUSCULOSKELETAL/RHEUMATOLOGICAL Hx Musculoskeletal Disorders: No Hx Falls: No - GASTROINTESTINAL Hx Gastrointestinal Disorders: Yes Hx Colitis: Yes - GENITOURINARY/GYNECOLOGICAL Hx Genitourinary Disorders: No - PSYCHIATRIC Hx Psychophysiologic Disorder: Yes Hx Substance Use: Yes (Marijuana) - SURGICAL HISTORY Hx Appendectomy: Yes (at 15 yrs old) - ANESTHESIA Hx Anesthesia: Yes Hx Anesthesia Reactions: No Hx Malignant Hyperthermia: No Meds Allergies/Adverse Reactions: Allergies Allergy/AdvReac Type Severity Reaction Status Date / Time PORK Allergy VOMITING Verified 05/22/18 18:53 Physical Exam - Constitutional Additional comments: sleepy, but uncomfortable when aroused - Head Exam Head Exam: NORMAL INSPECTION - Eye Exam Eye Exam: Normal appearance - ENT Exam ENT Exam: Mucous Membranes Moist - Respiratory Exam Respiratory Exam: Clear to Auscultation Bilateral, NORMAL BREATHING PATTERN. absent: Wheezes - Cardiovascular Exam Cardiovascular Exam: REGULAR RHYTHM, +S1, +S2 - GI/Abdominal Exam GI & Abdominal Exam: Normal Bowel Sounds, Soft, Tenderness (diffuse). absent: Distended, Guarding, Rebound, Rigid - Extremities Exam Extremities exam: Positive for: normal inspection. Negative for: calf tenderness, pedal edema - Back Exam Back exam: NORMAL INSPECTION - Neurological Exam Neurological exam: Alert - Skin Skin Exam: Dry, Warm Results - Vital Signs Recent Vital Signs: Last Vital Signs Temp 98.7 F 05/23/18 00:02 Pulse 79 05/23/18 00:02 Resp 18 05/23/18 00:02 BP 149/82 05/23/18 00:02 Pulse Ox 98 05/23/18 00:02 - Labs Result Diagrams: 05/22/18 20:21 05/22/18 20:01 Labs: Laboratory Results - last 24 hr 05/22/18 05/22/18 05/22/18 20:01 20:01 20:01 WBC RBC Hgb Hct MCV MCH MCHC RDW Plt Count MPV Neut % (Auto) Lymph % (Auto) Creek % (Auto) Eos % (Auto) Baso % (Auto) Neut # (Auto) Lymph # (Auto) Creek # (Auto) Eos # (Auto) Baso # (Auto) Neutrophils % (Manual) Lymphocytes % (Manual) Monocytes % (Manual) Basophils % (Manual) Platelet Estimate Large Platelets Anisocytosis (manual) Sodium 138 Potassium 3.9 Chloride 105 Carbon Dioxide 19 L Anion Gap 18 BUN 14 Creatinine 0.7 Est GFR ( Amer) > 60 Est GFR (Non-Af Amer) > 60 Random Glucose 129 H Lactic Acid 1.0 Calcium 9.5 Phosphorus 4.5 Magnesium 1.7 Total Bilirubin 0.5 AST 18 ALT 24 Alkaline Phosphatase 80 Total Protein 7.7 Albumin 4.5 Globulin 3.3 Albumin/Globulin Ratio 1.4 Lipase 51 Urine Opiates Screen Negative Urine Methadone Screen Negative Ur Barbiturates Screen Negative Ur Phencyclidine Scrn Negative Ur Amphetamines Screen Negative U Benzodiazepines Scrn Negative U Oth Cocaine Metabols Negative U Cannabinoids Screen Positive H Alcohol, Quantitative < 10 05/22/18 20:21 WBC 20.7 H D RBC 4.64 Hgb 13.8 Hct 42.2 MCV 90.9 MCH 29.7 MCHC 32.6 L RDW 13.6 Plt Count 332 MPV 8.3 Neut % (Auto) 88.9 H Lymph % (Auto) 5.6 L Creek % (Auto) 5.1 Eos % (Auto) 0.2 Baso % (Auto) 0.2 Neut # (Auto) 18.4 H Lymph # (Auto) 1.2 Creek # (Auto) 1.1 H Eos # (Auto) 0.0 Baso # (Auto) 0.0 Neutrophils % (Manual) 88 H Lymphocytes % (Manual) 7 L Monocytes % (Manual) 4 Basophils % (Manual) 1 Platelet Estimate Normal Large Platelets Present Anisocytosis (manual) Slight Sodium Potassium Chloride Carbon Dioxide Anion Gap BUN Creatinine Est GFR ( Amer) Est GFR (Non-Af Amer) Random Glucose Lactic Acid Calcium Phosphorus Magnesium Total Bilirubin AST ALT Alkaline Phosphatase Total Protein Albumin Globulin Albumin/Globulin Ratio Lipase Urine Opiates Screen Urine Methadone Screen Ur Barbiturates Screen Ur Phencyclidine Scrn Ur Amphetamines Screen U Benzodiazepines Scrn U Oth Cocaine Metabols U Cannabinoids Screen Alcohol, Quantitative Assessment & Plan - Assessment and Plan (Free Text) Assessment: 27 yo F with history of cannabis use disorder and prior admissions for intractable vomiting; admitted for intractable vomiting. Plan: Intractable Vomiting - GI consult- Dr. Briseno - Symptom control with anti-emetics, zofran and reglan PRN - Capsaicin cream to abdomen PRN - IV fluid hydration with D5 1/2 NS @ 100 - Monitor electrolytes on morning CMP and replete as needed - Protonix daily - Lipase wnl, no transaminitis Leukocytosis - Likely secondary to vomiting - Re-check CBC in am Diet - NPO DVT prophylaxis - SCD Pt seen in ED/discussed w/ Dr. Romano.
[2018-05-23] MEDS: Dextrose 5%/Lactated Ringer's 1,000 ML IV SCH ×2 (05:30→09:48)
[2018-05-23] MEDS ORDERED: Alum-Mag Hydrox-Simethicone Susp (30 mL) PO PRN (06:02)
[2018-05-23 07:50] LABS: BASO # 0.1 K/uL (0.0-0.2); BASO % 0.7 % (0.0-2.0); HEMOGLOBIN 12.3 g/dL (12.0-16.0); LYMPH # 0.6 K/uL (1.0-4.3); LYMPH % 3.7 % (20.0-40.0); MEAN CORPUSCULAR HEMOGLOBIN 30.1 pg (27.0-31.0); MEAN CORPUSCULAR HGB CONC 33.9 g/dL (33.0-37.0); MEAN PLATELET VOLUME 7.9 fl (7.2-11.7); MONO # 0.5 K/uL (0.0-0.8); NEUT % 92.6 % (50.0-75.0); PLATELET COUNT 297 K/uL (130-400); RBC 4.07 Mil/uL (3.80-5.20); RED CELL DISTRIBUTION WIDTH 13.3 % (11.5-14.5); WHITE BLOOD COUNT 16.1 K/uL (4.8-10.8)
[2018-05-23 08:29] LABS: ALB/GLOB RATIO 1.4 (1.0-2.1); ALT/SGPT 30 U/L (9-52); AST/SGOT 15 U/L (14-36); BLOOD UREA NITROGEN 12 mg/dl (7-17); GFR NON-AFRICAN AMERICAN > 60
[2018-05-23] MEDS ORDERED: Pantoprazole 40 mg EC Tab PO SCH (09:00)
[2018-05-23 09:33] VITALS: BP 139/64; PULSE 80; RESP 20; TEMP 98.9; O2SAT 99
[2018-05-23 10:38] LABS: BASOPHIL 1 % (0-2); LYMPHOCYTE 6 % (20-50); MONOCYTE 3 % (0-10); NEUTROPHIL 90 % (42-75); TOTAL CELLS COUNTED 100
[2018-05-23 10:43] LABS: LARGE PLATELETS PRESENT; PLATELET ESTIMATE NORMAL (NORMAL)
--- NOTE | 2018-05-23 14:56 | CP.PCM.DIS ---
Provider - Provider Date of Admission: 05/22/18 23:31 Attending physician: Evelyn Romano MD Consults: 05/23/18 09:00 Social Work Referral Routine Comment: Unhealthy Lifestyle Physician Instructions: Reason For Exam: Unhealthy Lifestyle Time Spent in preparation of Discharge (in minutes): 30 Diagnosis - Discharge Diagnosis (1) Intractable vomiting Status: Acute (2) Marijuana abuse, continuous Status: Chronic (3) Abdominal pain Status: Acute (4) Anxiety Status: Acute Hospital Course - Lab Results Lab Results: Most Recent Lab Values WBC 16.1 K/uL (4.8-10.8) H 05/23/18 06:30 RBC 4.07 Mil/uL (3.80-5.20) 05/23/18 06:30 Hgb 12.3 g/dL (12.0-16.0) 05/23/18 06:30 Hct 36.2 % (34.0-47.0) 05/23/18 06:30 MCV 89.0 fl (81.0-99.0) 05/23/18 06:30 MCH 30.1 pg (27.0-31.0) 05/23/18 06:30 MCHC 33.9 g/dL (33.0-37.0) 05/23/18 06:30 RDW 13.3 % (11.5-14.5) 05/23/18 06:30 Plt Count 297 K/uL (130-400) 05/23/18 06:30 MPV 7.9 fl (7.2-11.7) 05/23/18 06:30 Neut % (Auto) 92.6 % (50.0-75.0) H 05/23/18 06:30 Lymph % (Auto) 3.7 % (20.0-40.0) L 05/23/18 06:30 [place] % (Auto) 3.0 % (0.0-10.0) 05/23/18 06:30 Eos % (Auto) 0.0 % (0.0-4.0) 05/23/18 06:30 Baso % (Auto) 0.7 % (0.0-2.0) 05/23/18 06:30 Neut # (Auto) 15.0 K/uL (1.8-7.0) H 05/23/18 06:30 Lymph # (Auto) 0.6 K/uL (1.0-4.3) L 05/23/18 06:30 [place] # (Auto) 0.5 K/uL (0.0-0.8) 05/23/18 06:30 Eos # (Auto) 0.0 K/uL (0.0-0.7) 05/23/18 06:30 Baso # (Auto) 0.1 K/uL (0.0-0.2) 05/23/18 06:30 Neutrophils % (Manual) 90 % (42-75) H 05/23/18 06:30 Lymphocytes % (Manual) 6 % (20-50) L 05/23/18 06:30 Monocytes % (Manual) 3 % (0-10) 05/23/18 06:30 Basophils % (Manual) 1 % (0-2) 05/23/18 06:30 Platelet Estimate Normal (NORMAL) 05/23/18 06:30 Large Platelets Present 05/23/18 06:30 RBC Morphology Normal (NORMAL) 05/23/18 06:30 Anisocytosis (manual) Slight 05/22/18 20:21 Sodium 136 mmol/l (132-148) 05/23/18 06:30 Potassium 3.8 MMOL/L (3.6-5.0) 05/23/18 06:30 Chloride 101 mmol/L (98-107) 05/23/18 06:30 Carbon Dioxide 24 mmol/L (22-30) 05/23/18 06:30 Anion Gap 15 (10-20) 05/23/18 06:30 BUN 12 mg/dl (7-17) 05/23/18 06:30 Creatinine 0.6 mg/dl (0.7-1.2) L 05/23/18 06:30 Est GFR ( Amer) > 60 05/23/18 06:30 Est GFR (Non-Af Amer) > 60 05/23/18 06:30 Random Glucose 125 mg/dL (65-105) H 05/23/18 06:30 Lactic Acid 1.0 MMOL/L (0.7-2.1) 05/22/18 20:01 Calcium 9.0 mg/dL (8.4-10.2) 05/23/18 06:30 Phosphorus 3.8 mg/dl (2.5-4.5) 05/23/18 06:30 Magnesium 1.7 MG/DL (1.6-2.3) 05/23/18 06:30 Total Bilirubin 0.5 mg/dl (0.2-1.3) 05/23/18 06:30 AST 15 U/L (14-36) 05/23/18 06:30 ALT 30 U/L (9-52) 05/23/18 06:30 Alkaline Phosphatase 56 U/L (38-126) 05/23/18 06:30 Total Protein 7.0 G/DL (6.3-8.2) 05/23/18 06:30 Albumin 4.0 g/dL (3.5-5.0) 05/23/18 06:30 Globulin 2.9 gm/dL (2.2-3.9) 05/23/18 06:30 Albumin/Globulin Ratio 1.4 (1.0-2.1) 05/23/18 06:30 Lipase 51 U/L (23-300) 05/22/18 20:01 Urine Opiates Screen Negative (NEGATIVE) 05/22/18 20:01 Urine Methadone Screen Negative (NEGATIVE) 05/22/18 20:01 Ur Barbiturates Screen Negative (NEGATIVE) 05/22/18 20:01 Ur Phencyclidine Scrn Negative (NEGATIVE) 05/22/18 20:01 Ur Amphetamines Screen Negative (NEGATIVE) 05/22/18 20:01 U Benzodiazepines Scrn Negative (NEGATIVE) 05/22/18 20:01 U Oth Cocaine Metabols Negative (NEGATIVE) 05/22/18 20:01 U Cannabinoids Screen Positive (NEGATIVE) H 05/22/18 20:01 Alcohol, Quantitative < 10 mg/dl (0-10) 05/22/18 20:01 - Hospital Course Hospital Course: 27 y/o F with PMHx of marijuana abuse presents to ED with nausea and several episodes of vomiting and abdominal pain after using marijuana. In ED, VSS patient afebrile. UDC positive for cannabinoids and unremarkable otherwise. CBC consistent with leukocytosis likely reactive. CMP unremarkable. Last CT abdomen on 05/16 on previous admission showed hepatomegaly with fatty infiltration and possible colitis. Patient started on Zofran, pantoprazole and toradol for Nausea and abdominal pain. Patient's diet advanced to liquid diet which she tolerated well. Abdominal pain and nausea resolved. VSS. Patient stable to D/C home on zofran and pepcid. Patient to F/U with PMD, Psychiatry and Dr. Briseno on outpatient basis. Discharge Medications - Zofran ODT 4 mg Q6hr PRN for nausea - Pepcid 20 mg PO BID - Xanax 0.25 mg Q4hr PRN, 5 tab Discharge Exam - Head Exam Head Exam: NORMAL INSPECTION - Eye Exam Eye Exam: EOMI, Normal appearance - ENT Exam ENT Exam: Mucous Membranes Moist - Respiratory Exam Respiratory Exam: Clear to PA & Lateral, UNREMARKABLE. absent: Wheezes, Respiratory Distress - Cardiovascular Exam Cardiovascular Exam: REGULAR RHYTHM, +S1, +S2 - GI/Abdominal Exam GI & Abdominal Exam: Normal Bowel Sounds, Soft. absent: Distended, Tenderness - Neurological Exam Neurological exam: Alert, Oriented x3 - Psychiatric Exam Psychiatric exam: Normal Affect, Normal Mood - Skin Skin Exam: Dry, Intact, Normal Color, Warm Discharge Plan - Discharge Medications Prescriptions: ALPRAZolam [Xanax] 0.25 mg PO Q4 PRN #5 tab PRN Reason: Anxiety - Follow Up Plan Condition: FAIR Disposition: HOME/ ROUTINE Instructions: Nausea and Vomiting, Adult (DC), Marijuana Use and Addiction (DC) Additional Instructions: F/U with Nabeel Rose and GI within 1-2 weeks Referrals: Nabeel Rose APN [Staff Provider] - Wilmar Briseno MD [Staff Provider] -
== END 2018-05-23 15:30 | disposition home or self-care (01) ==
LOC: H.ER 18:50 → H.ERHOLD 23:31 → H.MEDSURG1 05-23 00:35
PROVIDERS: ADMIT Internal Medicine; ATTEND Internal Medicine
DX: R11.2 Nausea with vomiting, unspecified (principal); F12.10 Cannabis abuse, uncomplicated; F41.9 Anxiety disorder, unspecified; R10.84 Generalized abdominal pain; J45.909 Unspecified asthma, uncomplicated; F17.200 Nicotine dependence, unspecified, uncomplicated; D72.829 Elevated white blood cell count, unspecified; Z71.51 Drug abuse counseling and surveillance of drug abuser
CPT/HCPCS: 36415; 80053; 81025; 83605; 83690; 83735; 84100; 85025; 96361; 96374; 96375; 99285; G0378; G0480; J1200; J1885; J2405; J2765; J7120

== ENCOUNTER 2018-05-23 22:31 | Emergency (ER) | payer MEDICAID ==
[2018-05-23 22:31] VITALS: BMI 24.3
[2018-05-23 22:37] VITALS: RESP 18
[2018-05-23] MEDS ORDERED: Lactated Ringer's 1,000 ML IV STA (22:47)
--- NOTE | 2018-05-23 23:12 | ED PDOC ---
HPI:Nausea, Vomiting, Diarrhea Time Seen by Provider: 05/23/18 22:39 Chief Complaint (Nursing): Abdominal Pain Chief Complaint (Provider): Vomiting History Per: Patient History/Exam Limitations: no limitations Onset/Duration Of Symptoms: Days (persistent) Current Symptoms Are (Timing): Still Present Quality Of Discomfort: Cramping, "Pain" Associated Symptoms: Vomiting, Back Pain, Chest Pain Additional Complaint(s): 27 year old female with a history of gastroenteritis presents to the ED with abdominal pain that began this evening. Patient has been seen in this ED multiple times for intractable vomiting. She was discharged earlier today with medications after an overnight stay for the same symptoms. At home, she was able to tolerate Gatorade. Around 7 pm, she began to feel abdominal discomfort. The patient then to had soup for dinner and developed nausea, chest pain and cramping radiating towards her back. She reports that the symptoms are more severe than normal. Patient was unable to fill her prescriptions because her pharmacy was closed today. Denies blood in her vomit, diarrhea, alcohol or marijuana use. PMD: none provided Past Medical History Reviewed: Historical Data, Nursing Documentation, Vital Signs Vital Signs: Last Vital Signs Temp 98.6 F 05/23/18 22:33 Pulse 84 05/23/18 22:33 Resp 18 05/23/18 22:33 BP 149/106 H 05/23/18 22:33 Pulse Ox 98 05/23/18 22:33 SEAN Report Viewed: Yes - Medical History PMH: Asthma Denies: HIV, Chronic Kidney Disease - Surgical History Surgical History: Appendectomy (at 15 yrs old), Hernia Repair (inguinal) - Family History Family History: States: Unknown Family Hx - Home Medications Home Medications: Ambulatory Orders Medication Instructions Recorded RX: Famotidine [Pepcid] 20 mg PO DAILY #20 tab 05/18/18 RX: Ondansetron ODT [Zofran ODT] 4 mg PO Q6H PRN #10 odt 05/18/18 ALPRAZolam [Xanax] 0.25 mg PO Q4 PRN #5 tab 05/23/18 - Allergies Allergies/Adverse Reactions: Allergies Allergy/AdvReac Type Severity Reaction Status Date / Time PORK Allergy VOMITING Verified 05/22/18 18:53 Review of Systems ROS Statement: Except As Marked, All Systems Reviewed And Found Negative Gastrointestinal: Positive for: Nausea, Abdominal Pain Musculoskeletal: Positive for: Back Pain (cramping) Physical Exam - Reviewed Nursing Documentation Reviewed: Yes Vital Signs Reviewed: Yes - Physical Exam Appears: Positive for: In Acute Distress (mild gastrointestinal distress; retching in the ED) Head Exam: Positive for: ATRAUMATIC, NORMAL INSPECTION, NORMOCEPHALIC Skin: Positive for: Warm, Dry Eye Exam: Positive for: EOMI, PERRL ENT: Positive for: Other (tacky mucous membranes) Neck: Positive for: Painless ROM, Supple Cardiovascular/Chest: Positive for: Regular Rate, Rhythm, Chest Non Tender. Negative for: Murmur Respiratory: Positive for: Normal Breath Sounds. Negative for: Respiratory Distress Gastrointestinal/Abdominal: Positive for: Normal Exam, Soft. Negative for: Tend erness, Mass, Distended, Guarding, Rebound Back: Positive for: Normal Inspection. Negative for: Muscle Spasm Extremity: Positive for: Normal ROM. Negative for: Deformity Lymphatic: Negative for: Adenopathy Neurologic/Psych: Positive for: Alert. Negative for: Motor/Sensory Deficits - Laboratory Results Result Diagrams: 05/23/18 23:15 05/23/18 23:15 - ECG O2 Sat by Pulse Oximetry: 98 (RA) Pulse Ox Interpretation: Normal Medical Decision Making Medical Decision Makin:44 Impression: recurrent vomiting Initial Plan: --CMP --CBC --Lipase --Magnesium --Phosphate --Troponin --EKG --CXR --Dextrose 5%/ lactated Ringers IV 1,000 mls --Lactated Ringers IV 1,000 mls --Pantoprazole 40 mg IV --Toradol 30 mg IV --Zofran Inj 8 mg IV Scribe Attestation: Documented by Tammy Man acting as a scribe for Caridad Cardoso MD Provider Scribe Attestation: All medical record entries made by the Scribe were at my direction and personally dictated by me. I have reviewed the chart and agree that the record accurately reflects my personal performance of the history, physical exam, medical decision making, and the department course for this patient. I have also personally directed, reviewed, and agree with the discharge instructions and disposition. Disposition - Clinical Impression Clinical Impression: Gastritis, Marijuana abuse, continuous - Disposition Disposition: Transfer of Care Disposition Time: 00:00 Condition: STABLE Print Language: ROMANSH Patient Signed Over To: Pratibha Melton Handoff Comments: Pending reevaluation, PO challenge, final disposition
[2018-05-23] MEDS ORDERED: Dextrose 5%/Lactated Ringer's 1,000 ML IV SCH (23:15)
[2018-05-23 23:37] LABS: BASO # 0.1 K/uL (0.0-0.2); BASO % 0.4 % (0.0-2.0); EOS # 0.1 K/uL (0.0-0.7); EOS % 0.4 % (0.0-4.0); HEMOGLOBIN 12.4 g/dL (12.0-16.0); LYMPH # 1.9 K/uL (1.0-4.3); LYMPH % 12.9 % (20.0-40.0); MEAN CELL VOLUME 87.9 fl (81.0-99.0); MEAN CORPUSCULAR HEMOGLOBIN 29.9 pg (27.0-31.0); MEAN CORPUSCULAR HGB CONC 34.1 g/dL (33.0-37.0); MEAN PLATELET VOLUME 7.6 fl (7.2-11.7); MONO % 6.6 % (0.0-10.0); NEUT # 11.9 K/uL (1.8-7.0); NEUT % 79.7 % (50.0-75.0); RBC 4.13 Mil/uL (3.80-5.20); RED CELL DISTRIBUTION WIDTH 13.3 % (11.5-14.5); WHITE BLOOD COUNT 14.9 K/uL (4.8-10.8)
[2018-05-23 23:51] LABS: ALB/GLOB RATIO 1.4 (1.0-2.1); ALBUMIN 4.2 g/dL (3.5-5.0); ALT/SGPT 24 U/L (9-52); AST/SGOT 18 U/L (14-36); BLOOD UREA NITROGEN 8 mg/dl (7-17); CALCIUM 8.9 mg/dL (8.4-10.2); GFR NON-AFRICAN AMERICAN > 60; LIPASE 99 U/L (23-300)
[2018-05-23] MEDS ORDERED: Potassium Chloride 20 mEq ER Tab PO STA (23:55)
[2018-05-24] MEDS ORDERED: DiphenhydrAMINE 50 mg/ml Inj IVP STA (00:01)
[2018-05-24] MEDS ORDERED: DiphenhydrAMINE 50 mg/ml Inj ONE (00:29)
[2018-05-24] MEDS ORDERED: Potassium Chloride 20 mEq ER Tab PO ONE (00:48)
[2018-05-24] MEDS ORDERED: Alum-Mag Hydrox-Simethicone Susp (30 mL) PO STA (04:10)
--- NOTE | 2018-05-24 04:18 | ED PDOC ---
- Laboratory Results Result Diagrams: 05/23/18 23:15 05/23/18 23:15 - ECG O2 Sat by Pulse Oximetry: 100 Medical Decision Making Medical Decision Makin:00 --Care endorsed to this provider pending labs and reeval. 04:14 --Patient is comfortable and has been sleeping for several hours. She is tolerating PO and requesting additional antiemetic which was given. Patient is stable and will be discharged home. Scribe Attestation: Documented by Tammy Man acting as a scribe for Pratibha Melton MD Provider Scribe Attestation: All medical record entries made by the Scribe were at my direction and personally dictated by me. I have reviewed the chart and agree that the record accurately reflects my personal performance of the history, physical exam, medical decision making, and the department course for this patient. I have also personally directed, reviewed, and agree with the discharge instructions and disposition. Disposition - Clinical Impression Clinical Impression: Gastritis, Marijuana abuse, continuous - POA Present On Arrival: None - Disposition Disposition: Routine/Home Disposition Time: 04:18 Condition: IMPROVED Additional Instructions: DO NOT SMOKE MARIJUANA BECAUSE IT CAUSES YOU TO VOMIT. Seek professional help for drug addiction. Follow up with primary medical doctor. Instructions: Drug Abuse and Drug Addiction (DC), Gastritis (DC) Forms: [employer] (Norwegian) Print Language: SUDANESE
[2018-05-24 04:25] VITALS: BP 147/84; PULSE 82; TEMP 98.3
--- NOTE | 2018-05-24 10:06 | CARD ---
APPROVED REPORT Date of service: 05/23/2018 EKG Measurement Heart [id number] <Conclusion> Normal sinus rhythm Normal ECG
--- NOTE | 2018-05-24 11:15 | RAD ---
Date of service: 05/23/2018 HISTORY: chest pain COMPARISON: Comparison chest dated 10/25/2016 FINDINGS: LUNGS: No active pulmonary disease. PLEURA: No significant pleural effusion identified, no pneumothorax apparent. CARDIOVASCULAR: No aortic atherosclerotic calcification present. Normal cardiac size. No pulmonary vascular congestion. OSSEOUS STRUCTURES: No significant abnormalities. VISUALIZED UPPER ABDOMEN: Normal. OTHER FINDINGS: None. IMPRESSION: No active disease.
[2018-05-25 16:34] VITALS: O2SAT 98
== END 2018-05-24 05:00 | disposition home or self-care (01) ==
LOC: H.ER 22:31
DX: K29.70 Gastritis, unspecified, without bleeding (principal); F12.10 Cannabis abuse, uncomplicated
CPT/HCPCS: 71045; 80053; 81025; 82948; 83690; 83735; 84100; 84484; 85025; 93005; 96361; 96374; 96375; 96376; 99284; C9113; J1200; J1885; J2405; J2765; J7120

== ENCOUNTER 2018-05-25 23:09 | Emergency (ER) | payer MEDICAID ==
[2018-05-25 23:09] VITALS: BMI 24.3
[2018-05-26] MEDS ORDERED: Sodium Chloride 0.9% 1,000 ML IV STA ×2 (00:42→01:49)
--- NOTE | 2018-05-26 01:19 | ED PDOC ---
HPI: Abdomen Time Seen by Provider: 05/26/18 00:14 Chief Complaint (Nursing): Abdominal Pain Chief Complaint (Provider): Abdominal Pain History Per: Patient History/Exam Limitations: no limitations Onset/Duration Of Symptoms: Days (x1 week) Location Of Pain/Discomfort: Epigastric Quality Of Discomfort: Burning Associated Symptoms: Nausea, Vomiting, Constipation. denies: Diarrhea Last Bowel Movement: Days Ago Additional Complaint(s): Rosemarie Samuel is a 27 year old female with a past medical history of asthma, who presents to the emergency department complaining of having multiple episodes of bloody vomit, onset 05/18/18. Patient states that she has been unable to tolerate any foods since and describes the pain in her abdomen as burning. She further states she has been constipated for a few days. She states she has nausea but denies fever. PMD: No provider Past Medical History Reviewed: Historical Data, Nursing Documentation, Vital Signs Vital Signs: Last Vital Signs Temp 98.4 F 05/25/18 23:29 Pulse 68 05/25/18 23:29 Resp 18 05/25/18 23:29 BP 199/177 H 05/25/18 23:29 Pulse Ox 100 05/25/18 23:29 SEAN Report Viewed: Yes - Medical History PMH: Asthma Denies: HIV, Chronic Kidney Disease - Surgical History Surgical History: Appendectomy (at 15 yrs old), Hernia Repair (inguinal) - Family History Family History: States: Unknown Family Hx - Social History Current smoker - smoking cessation education provided: Yes Alcohol: Occasional Drugs: Cannabis - Home Medications Home Medications: Ambulatory Orders Medication Instructions Recorded RX: Famotidine [Pepcid] 20 mg PO DAILY #20 tab 05/18/18 RX: Ondansetron ODT [Zofran ODT] 4 mg PO Q6H PRN #10 odt 05/18/18 ALPRAZolam [Xanax] 0.25 mg PO Q4 PRN #5 tab 05/23/18 - Allergies Allergies/Adverse Reactions: Allergies Allergy/AdvReac Type Severity Reaction Status Date / Time PORK Allergy VOMITING Verified 05/22/18 18:53 Review of Systems ROS Statement: Except As Marked, All Systems Reviewed And Found Negative Gastrointestinal: Positive for: Nausea, Vomiting, Abdominal Pain, Constipation Physical Exam - Reviewed Nursing Documentation Reviewed: Yes Vital Signs Reviewed: Yes - Physical Exam Appears: Positive for: In Acute Distress Head Exam: Positive for: ATRAUMATIC, NORMOCEPHALIC Skin: Positive for: Normal Color, Warm, Dry Eye Exam: Positive for: Normal appearance ENT: Positive for: Normal ENT Inspection Neck: Positive for: Normal Cardiovascular/Chest: Positive for: Regular Rate, Rhythm. Negative for: Murmur Respiratory: Positive for: Normal Breath Sounds. Negative for: Respiratory Distress Gastrointestinal/Abdominal: Positive for: Bowel Sounds, Soft. Negative for: Tenderness, Mass, Distended, Guarding Extremity: Positive for: Normal ROM Neurologic/Psych: Positive for: Alert - Laboratory Results Result Diagrams: 05/26/18 01:51 05/26/18 01:51 - ECG O2 Sat by Pulse Oximetry: 100 (RA) Pulse Ox Interpretation: Normal Medical Decision Making Medical Decision Making: Time: 41 Impression: abdominal pain and vomiting Plan: --Beta-HCG quantitative --CMP --Lipase --CBC with differential --Pepcid 20 mg IVP --Sodium chloride 1,000 ml --Zofran inj 4 mg IV Previous charts show that the patient was here on 05/23/18 and was discharged. She was instructed to follow up with Dr. Chilel and on marijuana use. Patient came back the same day and was eventually discharged on 05/24/18. Patient was noted to be sleeping and tolerating PO prior to her discharge on 05/24/18. Prior CT FINDINGS from 05/16/18: LOWER THORAX: Lung bases clear. Heart size normal. Small hiatal hernia. LIVER: Liver is enlarged measuring nearly 20 cm in CC dimension. No obvious hepatic mass or collection. Portal and splenic veins opacified. GALLBLADDER AND BILE DUCTS: Unremarkable. PANCREAS: Unremarkable. No mass. No ductal dilatation. SPLEEN: Unremarkable. No splenomegaly. Small splenule present. ADRENALS: Unremarkable. KIDNEYS AND URETERS: Kidneys demonstrate symmetric nephrograms. No evidence of nephrolithiasis or hydronephrosis. BLADDER: Grossly unremarkable. REPRODUCTIVE: Questionable small left adnexal cyst APPENDIX: Appendix is not seen with certainty on this exam however no obvious inflammatory changes right lower quadrant of the abdomen BOWEL: Evaluation of the bowel is limited due to the lack of oral contrast material. The stomach is partially distended with food debris liquid and air. Visualized loops of small bowel exhibit normal contour and caliber. No evidence of acute mechanical small bowel obstruction. The transverse and descending colon collapsed which in part account for slight thick-walled appearance however the possibility of mild colitis cannot be completely excluded based on this study. Clinical correlation recommended. PERITONEUM: Unremarkable. No fluid collection. No free air. LYMPH NODES: Unremarkable. No enlarged lymph nodes. VASCULATURE: Unremarkable. No aortic aneurysm. No aortic atherosclerotic calcification or mural plaque present. BONES: No acute compression fractures no retropulsed fragments OTHER FINDINGS: None. IMPRESSION: Hepatomegaly with fatty hepatic infiltration. There is collapse of the transverse and descending colon which in part accounts for thick-walled appearance however the possibility of a mild colitis not excluded 0342 Patient's labs are at baseline. 0636 Patient has refused Potassium and has drank an entire bottle of water in the presence of the RN. pt stable for dc. she states she has pepcid and zofran at home. referred pt for outpt endoscopy with Dr Briseno. Scribe Attestation: Documented by Cameron Talbot, acting as a scribe for Gilson Mendoza MD Provider Scribe Attestation: All medical record entries made by the Scribe were at my direction and personally dictated by me. I have reviewed the chart and agree that the record accurately reflects my personal performance of the history, physical exam, medical decision making, and the department course for this patient. I have also personally directed, reviewed, and agree with the discharge instructions and disposition. Disposition - Clinical Impression Clinical Impression: Chronic abdominal pain, Vomiting - Patient ED Disposition Is Patient to be Admitted: No Counseled Patient/Family Regarding: Studies Performed, Diagnosis, Need For Followup - Disposition Referrals: Wilmar Briseno MD [Staff Provider] - Disposition: Routine/Home Disposition Time: 06:40 Condition: IMPROVED Additional Instructions: follow up with the GI doctor for endoscopy as instructed return tot he ED with worsening or concerning symptoms Instructions: Chronic Pain (DC) Forms: [facility] [facility] (German)
[2018-05-26 01:54] LABS: BASO % 0.1 % (0.0-2.0); EOS % 0.1 % (0.0-4.0); HEMOGLOBIN 13.3 g/dL (12.0-16.0); LYMPH # 0.9 K/uL (1.0-4.3); LYMPH % 7.2 % (20.0-40.0); MEAN CELL VOLUME 89.4 fl (81.0-99.0); MEAN CORPUSCULAR HEMOGLOBIN 29.7 pg (27.0-31.0); MEAN CORPUSCULAR HGB CONC 33.2 g/dL (33.0-37.0); MEAN PLATELET VOLUME 7.9 fl (7.2-11.7); MONO # 0.7 K/uL (0.0-0.8); MONO % 5.6 % (0.0-10.0); NEUT # 11.5 K/uL (1.8-7.0); RBC 4.47 Mil/uL (3.80-5.20); WHITE BLOOD COUNT 13.2 K/uL (4.8-10.8)
[2018-05-26 02:03] LABS: ALB/GLOB RATIO 1.5 (1.0-2.1); ALBUMIN 4.5 g/dL (3.5-5.0); ALT/SGPT 24 U/L (9-52); AST/SGOT 16 U/L (14-36); BLOOD UREA NITROGEN 5 mg/dl (7-17); CALCIUM 8.9 mg/dL (8.4-10.2); GFR NON-AFRICAN AMERICAN > 60; LIPASE 72 U/L (23-300)
[2018-05-26] MEDS ORDERED: Potassium Chloride 20 mEq ER Tab PO ONE ×2 (05:20→06:34)
[2018-05-26 08:21] VITALS: BP 152/81; PULSE 76; RESP 16; TEMP 98.2
[2018-05-29 23:13] VITALS: O2SAT 100
== END 2018-05-26 06:55 | disposition home or self-care (01) ==
LOC: H.ER 23:09
DX: R10.13 Epigastric pain (principal); R11.10 Vomiting, unspecified
CPT/HCPCS: 80053; 81025; 83690; 84702; 85025; 96361; 96372; 96374; 96375; 96376; 99284; J0500; J1885; J2405; J7030

== ENCOUNTER 2018-05-27 09:15 | Emergency (ER) | payer MEDICAID, OTHER ==
[2018-05-27 09:15] VITALS: BMI 24.3
[2018-05-27] MEDS ORDERED: Sodium Chloride 0.9% 1,000 ML IV STA (11:05)
--- NOTE | 2018-05-27 11:09 | ED PDOC ---
HPI: Abdomen Chief Complaint (Provider): Nausea History Per: Patient History/Exam Limitations: no limitations Onset/Duration Of Symptoms: Days (days) Additional Complaint(s): Pt. states 4-5 days of nausea/vomit, nonbloody. Abd left upper quadrant. Takes peptobismol and feels better. Then symptoms return. No chest pain, weakness, back pain, headaches, dizziness. Seen in Ed multiple times for the same and has had 2 admissions for it recently. Is to fu outpt and have GI fu/endoscopy. <Rc Hudson - Last Filed: 05/27/18 14:01> <Pratibha Melton - Last Filed: 05/27/18 22:09> Time Seen by Provider: 05/27/18 10:54 Chief Complaint (Nursing): GI Problem Past Medical History Reviewed: Nursing Documentation, Vital Signs Vital Signs: Last Vital Signs Temp 98.1 F 05/27/18 09:30 Pulse 88 05/27/18 09:30 Resp 18 05/27/18 09:30 BP 171/100 H 05/27/18 09:30 Pulse Ox 98 05/27/18 09:30 - Medical History PMH: Asthma Denies: HIV, Chronic Kidney Disease - Surgical History Surgical History: Appendectomy (at 15 yrs old), Hernia Repair (inguinal) - Family History Family History: States: Unknown Family Hx <Rc Hudson - Last Filed: 05/27/18 14:01> Vital Signs: Last Vital Signs Temp 98.1 F 05/27/18 09:30 Pulse 88 05/27/18 09:30 Resp 18 05/27/18 09:30 BP 171/100 H 05/27/18 09:30 Pulse Ox 98 05/27/18 21:50 <Pratibha Melton - Last Filed: 05/27/18 22:09> - Home Medications Home Medications: Ambulatory Orders Medication Instructions Recorded Famotidine [Pepcid] 20 mg PO DAILY #20 tab 05/18/18 Ondansetron ODT [Zofran ODT] 4 mg PO Q6H PRN #10 odt 05/18/18 ALPRAZolam [Xanax] 0.25 mg PO Q4 PRN #5 tab 05/23/18 - Allergies Allergies/Adverse Reactions: Allergies Allergy/AdvReac Type Severity Reaction Status Date / Time PORK Allergy VOMITING Verified 05/22/18 18:53 Review of Systems ROS Statement: Except As Marked, All Systems Reviewed And Found Negative Gastrointestinal: Positive for: Nausea, Vomiting, Abdominal Pain <Rc Hudson - Last Filed: 05/27/18 14:01> Physical Exam - Reviewed Nursing Documentation Reviewed: Yes Vital Signs Reviewed: Yes - Physical Exam Appears: Positive for: Non-toxic, No Acute Distress Head Exam: Positive for: ATRAUMATIC, NORMAL INSPECTION, NORMOCEPHALIC Skin: Positive for: Normal Color, Warm, DRY Eye Exam: Positive for: EOMI, Normal appearance, PERRL ENT: Positive for: Normal ENT Inspection Neck: Positive for: Normal, Painless ROM Cardiovascular/Chest: Positive for: Regular Rate, Rhythm Respiratory: Positive for: CNT, Normal Breath Sounds Gastrointestinal/Abdominal: Positive for: Soft, Tenderness (mild left upper) Back: Positive for: Normal Inspection. Negative for: L CVA Tenderness, R CVA Tenderness Extremity: Positive for: Normal ROM Neurologic/Psych: Positive for: Alert, Oriented <Rc Hudson M - Last Filed: 05/27/18 14:01> - Laboratory Results Result Diagrams: 05/27/18 12:10 05/27/18 12:10 Interpretation Of Abn Labs: 18.4 wbc, 2.8 k - ECG O2 Sat by Pulse Oximetry: 98 Pulse Ox Interpretation: Normal - Progress ED Course And Treament: 2300: Ct from 05/16/18 shows ? mild colitis. Pt. demanding to get more evaluation and refuses to leave until she is fully worked up. Pt. states she can't see the GI doctor because her insurance does not kick in for 1 month. 1403: WBC greater then last visit. Bands. Will ct abd for further evaluation. <Rc Hudson - Last Filed: 05/27/18 14:01> - Laboratory Results Result Diagrams: 05/27/18 12:10 05/27/18 12:10 <Pratibha Melton - Last Filed: 05/27/18 22:09> Medical Decision Making Medical Decision Making: Pt with CT showing colitis but no acute pathology. Pt with elevated WBC but stomach is soft/non-tender. Pt to follow up with [facility] and given referral. Pt seen walking around ED and drinking water without vomiting. On di scussion of discharge, pt was asking for pain medication and medication for vomiting. pt was told she could have PO tylenol and zofran ODT. Pt had also been seen by patient Kita sargent, and given instructions on outpatient follow up. vitals WNL. <Pratibha Melton - Last Filed: 05/27/18 22:09> Disposition <Rc Hudson - Last Filed: 05/27/18 14:01> - Patient ED Disposition Is Patient to be Admitted: No - Disposition Disposition Time: 21:50 <Pratibha Melton - Last Filed: 05/27/18 22:09> - Clinical Impression Clinical Impression: Gastroenteritis, Intractable vomiting, Marijuana abuse, continuous - Disposition Referrals: Wilmar Briseno MD [Staff Provider] - Condition: IMPROVED Instructions: Drug Abuse and Drug Addiction (DC), Colitis (DC) Forms: [employer] (Turkish) Print Language: [place] K[place]
[2018-05-27 12:36] LABS: BASO # 0.1 K/uL (0.0-0.2); BASO % 0.3 % (0.0-2.0); EOS % 0.1 % (0.0-4.0); HEMOGLOBIN 14.2 g/dL (12.0-16.0); LYMPH # 1.5 K/uL (1.0-4.3); MEAN CORPUSCULAR HEMOGLOBIN 29.7 pg (27.0-31.0); MEAN CORPUSCULAR HGB CONC 33.3 g/dL (33.0-37.0); MEAN PLATELET VOLUME 7.4 fl (7.2-11.7); MONO # 1.3 K/uL (0.0-0.8); MONO % 7.1 % (0.0-10.0); NEUT # 15.5 K/uL (1.8-7.0); NEUT % 84.5 % (50.0-75.0); PLATELET COUNT 363 K/uL (130-400); RBC 4.78 Mil/uL (3.80-5.20); RED CELL DISTRIBUTION WIDTH 13.1 % (11.5-14.5); WHITE BLOOD COUNT 18.4 K/uL (4.8-10.8)
[2018-05-27 12:49] LABS: ALB/GLOB RATIO 1.5 (1.0-2.1); ALBUMIN 4.6 g/dL (3.5-5.0); ALT/SGPT 25 U/L (9-52); AST/SGOT 26 U/L (14-36); BLOOD UREA NITROGEN 9 mg/dl (7-17); CALCIUM 9.3 mg/dL (8.4-10.2); GFR NON-AFRICAN AMERICAN > 60; LIPASE 108 U/L (23-300)
[2018-05-27 12:53] VITALS: BP 171/100; PULSE 88; RESP 18; TEMP 98.1; O2SAT 98
[2018-05-27 13:09] LABS: BANDS 4 % (0-2); LYMPHOCYTE 8 % (20-50); MONOCYTE 7 % (0-10); NEUTROPHIL 81 % (42-75); PLATELET ESTIMATE NORMAL (NORMAL); TOTAL CELLS COUNTED 100
[2018-05-27] MEDS ORDERED: Iohexol 240 (50 ml) PO ONE (14:02)
[2018-05-27] MEDS ORDERED: Potassium Chloride 20 mEq ER Tab PO STA (14:03)
[2018-05-27] MEDS ORDERED: Iohexol 240 (50 ml) ONE (14:50)
[2018-05-27] MEDS ORDERED: Potassium Chloride 20 mEq ER Tab PO ONE (14:51)
--- NOTE | 2018-05-27 17:32 | ED PDOC ---
- Laboratory Results Result Diagrams: 05/27/18 12:10 05/27/18 12:10 - ECG O2 Sat by Pulse Oximetry: 98 Medical Decision Making Medical Decision Makin:00 Patient is signed out to me by Rc Hudson MD pending CT and evaluation by patient liason. Will most likely be discharged home. 21:45 Pt with improved symptoms. CT shows diffuse collitis. Pt to follow up with financial management consultant for chronic vomiting and abdominal discomfort. Scribe Attestation: Documented byPratibha Keller, acting as a scribe for Pratibha Melton MD. Provider Scribe Attestation: All medical record entries made by the Scribe were at my direction and personally dictated by me. I have reviewed the chart and agree that the record accurately reflects my personal performance of the history, physical exam, medical decision making, and the department course for this patient. I have also personally directed, reviewed, and agree with the discharge instructions and disposition. Disposition - Clinical Impression Clinical Impression: Gastroenteritis, Intractable vomiting, Marijuana abuse, continuous - POA Present On Arrival: None - Disposition Referrals: Wilmar Briseno MD [Staff Provider] - Disposition: Routine/Home Disposition Time: 21:50 Condition: IMPROVED Instructions: Drug Abuse and Drug Addiction (DC), Colitis (DC) Forms: [employer] (Namibian) Print Language: CITIZEN OF [place]
[2018-05-27] MEDS ORDERED: Iohexol 300 100 ML IJ ONE ×2 (18:20→20:13)
[2018-05-27] MEDS ORDERED: Sodium Chloride 0.9% 50 ML IV ONE ×2 (18:20→20:13)
--- NOTE | 2018-05-28 15:22 | CT ---
Date of service: 05/27/2018 PROCEDURE: CT Abdomen and Pelvis with contrast HISTORY: abd pain COMPARISON: None. TECHNIQUE: Contrast dose: Radiation dose: Total exam DLP = 540.95 mGy-cm. This CT exam was performed using one or more of the following dose reduction techniques: Automated exposure control, adjustment of the mA and/or kV according to patient size, and/or use of iterative reconstruction technique. FINDINGS: LOWER THORAX: Unremarkable. LIVER: Unremarkable. No gross lesion or ductal dilatation. GALLBLADDER AND BILE DUCTS: Unremarkable. PANCREAS: Unremarkable. No gross lesion or ductal dilatation. SPLEEN: Unremarkable. ADRENALS: Unremarkable. No mass. KIDNEYS AND URETERS: Unremarkable. No hydronephrosis. No solid mass. VASCULATURE: Unremarkable. No aortic aneurysm. No aortic atherosclerotic calcification or mural plaque present. BOWEL: The bowel is not appear obstructed. There parts of the transverse and ascending colon which are well opacified and demonstrate questionable thickening of the haustra markings however nondependent segments partially filled with gas are ribbon thin in the same general distribution in terms of the wall thickness. Therefore, colitis is not favored. No bowel obstruction or mesenteric edema. Small bowel is unremarkable grossly. APPENDIX: Small but otherwise normal-appearing appendix is identified. PERITONEUM: Unremarkable. No free fluid. No free air. LYMPH NODES: Unremarkable. No enlarged lymph nodes. BLADDER: Unremarkable. REPRODUCTIVE: Unremarkable. BONES: No acute fracture. OTHER FINDINGS: None. IMPRESSION: Borderline colitis affecting ascending and transverse and potentially sigmoid colon though the pattern may be upper limits of normal appearance of the wall thickness. Clinically correlate further. No pericolic or perienteric reactive change, ascites or free intra peritoneal gas collection. No peritoneal abscess encountered either. Further clinical correlation is recommended. Preliminary report provided by Missael, 05/27/2018 9:08 p.m..
== END 2018-05-27 22:20 | disposition home or self-care (01) ==
LOC: H.ER 09:15
DX: K52.9 Noninfective gastroenteritis and colitis, unspecified (principal); R11.10 Vomiting, unspecified; F12.10 Cannabis abuse, uncomplicated; J45.909 Unspecified asthma, uncomplicated
CPT/HCPCS: 74177; 80053; 81025; 83690; 85025; 96374; 96375; 96376; 99284; C9113; J2405; J2765; J7030; Q9966; Q9967